=== PATIENT | female | born 1935 | race Two or more races ===

== ENCOUNTER 2016-09-11 05:51 | Inpatient (IN) | payer MEDICARE, BC ==
[~2016-09-11] VITALS: Ht 170.2 cm; Wt 70.3 kg
[~2016-09-11 05:51] MED LIST: ACET650S26 GT; BISA-79 RC; DOCU50LI GT; LACT-209 GT; MAGN400O6 GT; NA P133E RC; SENN8.6T6 GT; VITA42.5 TP
--- NOTE | 2016-09-11 05:51 | NUR ---
pt [id number] fr [facility] for report witnessed seizure by TRIAL MANAGER while in bed, lasting approximately 2mins, BG 106 in field. pt labile, nonverbal which is reported normal for pt. pt afebrile w/ resp even & unlabored, hypoxic on RA, placed on 2 l/min O2 via NC, NSR on continuous pulse-ox w/ cardiac monitoring & seizure precautions in place. Bed low to ground w/ siderails up & padded. Pending further neto mullins MD.
--- NOTE | 2016-09-11 06:05 | NUR ---
Labs drawn & sent.
--- NOTE | 2016-09-11 06:13 | NUR ---
Dr. De Paz at bedside for further eval, talking w/ pt son at bedside.
--- NOTE | 2016-09-11 06:14 | NUR ---
pt sent to CT via [facility].
[2016-09-11] MEDS ORDERED: IV NS 0.9% 2,000 ML ONE (06:24)
[2016-09-11] MEDS ORDERED: IV SET PRIMARY 1 EA INFUS.SET MC ONE ×2 (06:24→07:41)
[2016-09-11] MEDS ORDERED: SECONDARY IV SET 1 EA INFUS.SET MC ONE (06:24)
[2016-09-11] MEDS ORDERED: IV NS 0.9% 500 ML IV ONE (06:24)
[2016-09-11] MEDS ORDERED: IV NS 0.9% 1,000 ML BAG IV ONE ×2 (06:30→12:00)
[2016-09-11 06:33] LABS: CALCIUM, SERUM 9.1 mg/dL (8.5-10.1); CARBON DIOXIDE 23 mmol/L (21-32); CHLORIDE 101 mmol/L (98-107); GLUCOSE 139 mg/dL (74-106); POTASSIUM 3.7 mmol/L (3.5-5.1); SODIUM SERUM 139 mmol/L (136-145); UREA NITROGEN, BLOOD 17 mg/dL (7-18)
[2016-09-11 06:35] LABS: BASOPHILS % (AUTO) 0.2 % (0.0-2.0); EOSINOPHILS # (AUTO) 0.1 /CMM (0.0-0.7); EOSINOPHILS % (AUTO) 1.1 % (0.0-6.0); HEMATOCRIT 39 % (33-45); LYMPHOCYTES # (AUTO) 5.1 /CMM (0.8-4.8); LYMPHOCYTES % (AUTO) 40.1 % (20.0-44.0); MEAN CORPUSCULAR HEMOGLOBIN 29 PG (26.0-33.0); MEAN CORPUSCULAR HGB CONC 33 g/dl (31.0-36.0); MEAN CORPUSCULAR VOLUME 86 fL (82-100); MONOCYTES # (AUTO) 0.8 /CMM (0.1-1.30); MONOCYTES % (AUTO) 6.3 % (2.0-12.0); NEUTROPHILS # (AUTO) 6.6 /CMM (1.8-8.9); NEUTROPHILS % (AUTO) 52.3 % (43.0-81.0); PLATELET COUNT (AUTO) 463 /CMM (150-450); RED BLOOD CELL COUNT(AUTO) 4.55 MIL/uL (4.0-5.2); WHITE BLOOD COUNT (AUTO) 12.6 K/uL (4.3-11.0)
[2016-09-11 06:39] LABS: ALANINE AMINOTRANSFERASE 20 U/L (12-78); ALBUMIN 2.9 g/dL (3.4-5.0); ALKALINE PHOSPHATASE 101 U/L (46-116); ASPARTATE AMINOTRANSFERASE 18 U/L (15-37); BILIRUBIN,DIRECT 0.1 mg/dL (0.0-0.2); BILIRUBIN,TOTAL 0.3 mg/dL (0.2-1.0); TOTAL PROTEIN, SERUM 7.1 g/dL (6.4-8.2)
--- NOTE | 2016-09-11 06:39 | NUR ---
pt back fr ct w/ reps even & unlabored, on continuous O2, pulse-ox w/ cardiac monitoring. IV flds continue to be infusing.
[2016-09-11 06:42] LABS: INR 0.97 (0.87-1.13); PROTHROMBIN TIME 10.4 SECS (9.5-12.7); TROPONIN I < 0.017 ng/mL (0.00-0.056)
--- NOTE | 2016-09-11 06:58 | NUR ---
16FR FC initiated w/ 200ml clear yellow urine obtained & sent to lab. FC d/c. pt tolerated procedure well w/ nad noted.
--- NOTE | 2016-09-11 06:59 | NUR ---
Dr. De Paz updating pt son on pt status. pt becoming more responsive, able to speak one-word sentences, saying "no no no. ok ok ok ok." On continuous monitoring.
--- NOTE | 2016-09-11 07:08 | NUR ---
Report given to SHILPA Schaefer for DELTA.
[2016-09-11 07:26] LABS: APPEARANCE,URINE SL CLOUDY (CLEAR); BILIRUBIN,URINE NEGATIVE (NEGATIVE); BLOOD, URINE TRACE-INTA Ery/uL (NEGATIVE); COLOR,URINE YELLOW (YELLOW); KETONES,URINE NEGATIVE (NEGATIVE); LEUKOCYTE ESTERASE ,URINE 3+ (NEGATIVE); NITRITE, URINE POSITIVE (NEGATIVE); PH,URINE 6.5 (5.0-8.0); PROTEIN,URINE NEGATIVE (NEGATIVE); UGLUCOSE NEGATIVE (NEGATIVE)
[2016-09-11 07:40] LABS: BACTERIA,URINE 3+ /HPF (None Seen); SQUAMOUS EPITHELIAL CELL,UR Moderate /HPF (None Seen); WBC,URINE 51-80 /HPF (0-3)
[2016-09-11] MEDS ORDERED: CEFTRIAXONE 1GM BAG (ER ONLY) 50 ML IV ONE (07:41)
[2016-09-11] MEDS ORDERED: CRAN3875 GT (07:49)
[2016-09-11] MEDS ORDERED: LACT10SO GT (07:49)
[2016-09-11] MEDS ORDERED: CEFTRIAXONE 1GM BAG (ER ONLY) 1 GM/50 ML PIGGYBACK IV ONE (08:00)
[2016-09-11] MEDS ORDERED: AMIN30LI2 GT (08:36)
--- NOTE | 2016-09-11 09:04 | NUR ---
CALLED [facility] FIRST TIME AT 0826 SEE NOTES ON BED 6 CALLED [facility] AGAIN ITS ISELA
--- NOTE | 2016-09-11 09:08 | NUR ---
REPORT GIVEN TO NASIR MASSEY FOR DLETA
--- NOTE | 2016-09-11 10:45 | NUR ---
RN BRYON RECEIVED PATIENT FROM THE ER ON [facility]. 4 PERSON ASSIST TRANSFER TO THE BED. STABLE VITAL SINGS. ALERT AND AWAKE AT THIS TIME. COMBATIVE DURING CARE. FAMILY AT BEDSIDE. SKIN EVALUATED BY RN. TURNED AND REPOSITIONED FOR COMFORT AND WOUND PREVENTION. WILL CONTINUE TO MONITOR AND PROVIDE CARE.
[2016-09-11 10:57] VITALS: BP 125/69
--- NOTE | 2016-09-11 11:10 | NUR ---
BRYON/RN: RECEIVED REPORT FROM NASIR RN FOR DELTA. DR ISELA CAMPBELL FOR ADMITTING ORDERS. PT A&OX2, DROWSY, BREATHING EVEN AND UNLABORED. ABLE TO COMMUNICATE NEEDS. NO DISTRESS NOTED. WILL CONT TO MONITOR PT.
[2016-09-11 12:00] VITALS: BP 98/63
[2016-09-11] MEDS ORDERED: ACETAMINOPHEN 650 MG/20.3 ML UDC GT PRN (12:00)
[2016-09-11] MEDS ORDERED: MORPHINE SULFATE INJ 4 MG/ML DISP.SYRIN IV PRN (12:00)
[2016-09-11] MEDS ORDERED: BISACODYL (5 MG) 5 MG TABLET.DR GT PRN (12:00)
[2016-09-11] MEDS ORDERED: NA PHOS,M-B/NA PHOS,DI-BA 1 EA ENEMA RC PRN (12:00)
[2016-09-11] MEDS ORDERED: ACETAMINOPHEN 650 MG/20.3 ML UDC NG PRN (12:00)
[2016-09-11] MEDS ORDERED: MAGNESIUM HYDROXIDE 30 ML UDC GT PRN (12:00)
[2016-09-11] MEDS ORDERED: ONDANSETRON HCL/PF 4 MG/2 ML VIAL IVP PRN (12:00)
[2016-09-11] MEDS ORDERED: LORAZEPAM INJ 2 MG/ML VIAL IVP PRN (12:00)
[2016-09-11] MEDS ORDERED: IV SET PRIMARY PUMP SET 1 EA INFUS.SET MC ONE (12:15)
[2016-09-11] MEDS: PROSOURCE / PROSTAT (PYXIS) 30 ML UDC GT SCH (12:30)
[2016-09-11] MEDS ORDERED: IV NS 0.9% 1,000 ML BAG IV PRN (12:30)
[2016-09-11] MEDS: VITAMINS A AND D 56.7 GM TUBE TP SCH ×2 (13:00→16:11)
[2016-09-11] MEDS: LACTULOSE 10 G/15 ML UDC (PYXIS) GT SCH ×3 (13:30→21:00)
[2016-09-11] MEDS ORDERED: CEFTRIAXONE 1 G in IV D5W 50 ML IV SCH (14:00)
--- NOTE | 2016-09-11 15:00 | NUR ---
BRYON/RN: WOUND CARE RENDERED, BED BATH PROVIDED. PT WITH LARGE AMOUNT OF SOFT GREEN BM
[2016-09-11 16:00] VITALS: BP 122/65
[2016-09-11] MEDS: IV NS 0.9% 1,000 ML IV PRN (16:11)
--- NOTE | 2016-09-11 19:10 | NUR ---
BRYON/RN: US TECH AT BEDSIDE. PT REMAINS IN STABLE CONDITION, NO DISTRESS NOTED. CARE ENDORSED TO PM RN FOR DELTA.
[2016-09-11 20:00] VITALS: BP 121/67
--- NOTE | 2016-09-11 20:33 | NUR ---
received pt from day shift, alert, confused,follows simple commands at times, no seizures, SR, on 2L 02, sat well, lungs diminished, no edema, NPO, diaper on, v/s stable, no pain, pt turned and repositioned.
[2016-09-11] MEDS: SENNOSIDES 8.6 MG TABLET GT SCH (21:28)
[2016-09-12] VITALS: BP 113/61
[2016-09-12 04:00] VITALS: BP 122/64
--- NOTE | 2016-09-12 04:09 | NUR ---
pt is resting in the bed, no acute distress overnight, v/s stable, no pain, pt cleaned, changed and repositioned q2hrs.
[2016-09-12] MEDS: IV NS 0.9% 1,000 ML IV PRN ×2 (04:31→22:05)
--- NOTE | 2016-09-12 07:10 | NUR ---
RN INITIAL NOTE PATIENT RECEIVED IN BED. PT IS AWAKE, ALERT, ORIENTED TO PERSON. NO S/S OF PAIN OR DISCOMFORT. SINUS RHYTHM ON TELE MONITOR. RESPIRATIONS ARE EVEN AND UNLABORED. NO S/S OF RESPIRATORY DISTRESS OR SOB. SATING WELL ON ROOM AIR. REMOVES AND REFUSES NASAL CANULA. . G-TUBE CLAMPED. SKIN IS WARM AND DRY TO TOUCH. IV SITE FLUSHED, PATENT. SAFETY PRECAUTIONS IN PLACE, BED IN LOCKED, LOW POSITION WITH TWO SIDE RAILS UP. CALL LIGHT AND BELONGINGS WITHIN EASY REACH. WILL MONITOR CLOSELY.
[2016-09-12 08:00] VITALS: BP 131/79
[2016-09-12] MEDS ORDERED: Medication Not On Formulary EA (Cran/Vitc/Mannose/Inulin/Brom (Uti-Stat Liquid) 30 ML) GT SCH (09:00)
[2016-09-12] MEDS: CEFTRIAXONE 1 G in IV D5W 50 ML IV SCH (09:07)
[2016-09-12] MEDS ORDERED: SECONDARY IV SET 1 EA INFUS.SET MC ONE (09:27)
[2016-09-12 09:56] LABS: ALANINE AMINOTRANSFERASE 21 U/L (12-78); ALBUMIN 2.8 g/dL (3.4-5.0); ALKALINE PHOSPHATASE 94 U/L (46-116); ASPARTATE AMINOTRANSFERASE 19 U/L (15-37); BILIRUBIN,TOTAL 0.5 mg/dL (0.2-1.0); CALCIUM, SERUM 8.6 mg/dL (8.5-10.1); CARBON DIOXIDE 26 mmol/L (21-32); CHLORIDE 104 mmol/L (98-107); CREATININE 0.6 mg/dL (0.6-1.3); GLUCOSE 79 mg/dL (74-106); POTASSIUM 3.4 mmol/L (3.5-5.1); SODIUM SERUM 140 mmol/L (136-145); UREA NITROGEN, BLOOD 6 mg/dL (7-18)
[2016-09-12] MEDS: LACTULOSE 10 G/15 ML UDC (PYXIS) GT SCH ×4 (09:56→21:57)
[2016-09-12 09:57] LABS: BASOPHILS % (AUTO) 0.3 % (0.0-2.0); EOSINOPHILS # (AUTO) 0.2 /CMM (0.0-0.7); EOSINOPHILS % (AUTO) 2.2 % (0.0-6.0); HEMATOCRIT 38 % (33-45); HEMOGLOBIN 12.6 g/dL (11.5-14.8); LYMPHOCYTES # (AUTO) 2.5 /CMM (0.8-4.8); LYMPHOCYTES % (AUTO) 30.8 % (20.0-44.0); MEAN CORPUSCULAR HEMOGLOBIN 28 PG (26.0-33.0); MEAN CORPUSCULAR HGB CONC 33 g/dl (31.0-36.0); MEAN CORPUSCULAR VOLUME 86 fL (82-100); MONOCYTES # (AUTO) 0.5 /CMM (0.1-1.30); MONOCYTES % (AUTO) 5.9 % (2.0-12.0); NEUTROPHILS # (AUTO) 4.9 /CMM (1.8-8.9); NEUTROPHILS % (AUTO) 60.8 % (43.0-81.0); PLATELET COUNT (AUTO) 389 /CMM (150-450); RDW COEFFICIENT OF VARIATION 15.7 (11.5-15.0); RED BLOOD CELL COUNT(AUTO) 4.42 MIL/uL (4.0-5.2)
[2016-09-12] MEDS: PROSOURCE / PROSTAT (PYXIS) 30 ML UDC GT SCH (09:57)
[2016-09-12] MEDS: PANTOPRAZOLE 40 MG/PACK PACK GT SCH (09:57)
[2016-09-12] MEDS: DOCUSATE SODIUM LIQ 100 MG/10 ML UDC GT SCH (09:57)
[2016-09-12] MEDS: VITAMINS A AND D 56.7 GM TUBE TP SCH ×3 (09:57→17:47)
[2016-09-12 10:01] LABS: PROTHROMBIN TIME 10.7 SECS (9.5-12.7)
[2016-09-12 10:03] LABS: CREATINE KINASE MB 1.2 ng/mL (0-3.6)
--- NOTE | 2016-09-12 11:30 | NUR ---
RN NOTE CONTACTED BY NEUROSURGERY REGARDING SPINE FRACTURE. MRI ORDERED, QUESTIONNAIRE COMPLETED
[2016-09-12 12:00] VITALS: BP 128/76
--- NOTE | 2016-09-12 12:23 | NUR ---
TEXTED DR. MCGHEE FOR MRI APPROVAL.
[2016-09-12] MEDS ORDERED: POTASSIUM CHLORIDE 20 MEQ TAB.PRT.SR PO ONE (12:30)
--- NOTE | 2016-09-12 13:36 | NUR ---
PATIENT COMBATIVE,CONFUSED AND CLAUSTRO UNABLE TO DO MRI,NURSE SOON IS AWARE.
[2016-09-12 16:00] VITALS: BP 133/80
--- NOTE | 2016-09-12 19:15 | NUR ---
RN CLOSING NOTE ALL MD ORDERS CARRIED OUT, PT KEPT CLEAN AND DRY. SAFETY PRECAUTIONS IN PLACE AT ALL TIMES. WILL GIVE REPORT TO ONCOMING RN FOR DELTA
--- NOTE | 2016-09-12 19:20 | NUR ---
RN INITIAL NOTES RECEIVED PATIENT IN BED, AWAKE AND ALERT TO NAME. PATIENT DENIES ANY PAIN AND DISCOMFORT. NO ACUTE DISTRESS. ON 2LPM OF O2 VIA NC, RESPIRATION IS NOTED TO BE EVEN AND UNLABORED, NO SOB. GT CLAMPED AT THIS TIME, FLUSHED AND KEPT PATENT. REVIEWED DIETITIAN'S NOTES AND CLARIFIED WITH MORNING AM NURSE, WILL START TF ORDERED. R FOREARM G20, FLUSHED AND PATENT, NO SIGNS OF INFILTRATION, IVF ORDERED. PATIENT'S NEEDS ANTICIPATED AND MET. SAFETY AND COMFORT ENSURED. SEIZURE PRECAUTION OBSERVED, NO SIGNS OF SEIZURE NOTED, WILL MONITOR CLOSELY. Addendum: 09/12/16 at 2041 by PEPITO TY RN WILL COORDINATE WITH PHARMACY/ NURSING DIE HOLDER FOR THE GTF SUPPLY.
[2016-09-12 20:00] VITALS: BP 130/76
[2016-09-12] MEDS: SENNOSIDES 8.6 MG TABLET GT SCH (21:58)
[2016-09-12] MEDS: FIBERSOURCE HN 1,000 ML BOTTLE GT PRN (22:06)
--- NOTE | 2016-09-12 22:19 | NUR ---
RN NOTES GTF-FIBERSOURCE STARTED PER ORDER. GT PLACEMENT VERIFIED WITH AUSCULTATION. OBTAINED FIBERSOURCE FROM NURSING PROBATE PARALEGAL, UNABLE TO SCAN BARCODE, MANUAL BARCODE UTILIZED. WILL MONITOR FOR TOLERANCE OF GTF.
--- NOTE | 2016-09-13 02:41 | NUR ---
RN NOTES MONITORED PATIENT'S TOLERANCE WITH GTF. PATIENT WITH NO C/O OF NAUSEA/VOMITING, NO ABDOMINAL DISCOMFORT, NO GASTRIC RESIDUAL NOTED. TOLERATING GTF WELL.
[2016-09-13 04:00] VITALS: BP 107/59
[2016-09-13 06:40] LABS: BASOPHILS % (AUTO) 0.3 % (0.0-2.0); EOSINOPHILS # (AUTO) 0.2 /CMM (0.0-0.7); HEMATOCRIT 38 % (33-45); HEMOGLOBIN 12.5 g/dL (11.5-14.8); LYMPHOCYTES # (AUTO) 2.1 /CMM (0.8-4.8); LYMPHOCYTES % (AUTO) 26.8 % (20.0-44.0); MEAN CORPUSCULAR HEMOGLOBIN 29 PG (26.0-33.0); MEAN CORPUSCULAR HGB CONC 33 g/dl (31.0-36.0); MEAN CORPUSCULAR VOLUME 86 fL (82-100); MONOCYTES # (AUTO) 0.5 /CMM (0.1-1.30); MONOCYTES % (AUTO) 6.4 % (2.0-12.0); NEUTROPHILS # (AUTO) 5.2 /CMM (1.8-8.9); NEUTROPHILS % (AUTO) 64.5 % (43.0-81.0); PLATELET COUNT (AUTO) 391 /CMM (150-450); RDW COEFFICIENT OF VARIATION 15.4 (11.5-15.0); RED BLOOD CELL COUNT(AUTO) 4.38 MIL/uL (4.0-5.2)
--- NOTE | 2016-09-13 06:48 | NUR ---
RN CLOSING NOTES PATIENT WITH NO ACUTE CHANGE IN CONDITION OBSERVED OVERNIGHT. NO INTOLERANCE NOTED WITH GTF, INFUSING WELL. IVF INFUSING WELL ON PATIENT'S R FOREARM. NO SEIZURE ACTIVITY OBSERVED OVERNIGHT. PATIENT'S NEEDS ANTICIPATED AND MET. TURNED AND REPOSITIONED. KEPT CLEAN AND DRY. SAFETY AND COMFORT ENSURED. BED IN LOW AND LOCKED POSITION. CALL LIGHT IN REACH. WILL ENDORSE ACCORDINGLY FOR CONTINUITY OF CARE.
[2016-09-13 07:33] LABS: CALCIUM, SERUM 8.1 mg/dL (8.5-10.1); CARBON DIOXIDE 26 mmol/L (21-32); CHLORIDE 103 mmol/L (98-107); CREATININE 0.6 mg/dL (0.6-1.3); GLUCOSE 124 mg/dL (74-106); MAGNESIUM 1.8 mg/dL (1.8-2.4); PHOSPHORUS 2.7 mg/dL (2.5-4.9); POTASSIUM 3.5 mmol/L (3.5-5.1); SODIUM SERUM 136 mmol/L (136-145); UREA NITROGEN, BLOOD 10 mg/dL (7-18)
--- NOTE | 2016-09-13 07:39 | NUR ---
RN INITIAL NOTE REPORT RECEIVED FROM PEPITO PM SHIFT FOR DELTA. PT A/O X1 EPISODES OF CONFUSION. PT NC 2L .PT MS. FIBERSOURCE @ 70 ML/HR PLACEMENT CK NO RESIDUAL. IV RFA #20 G NS @75ML/HR. ALL SAFETY MEASURES IN PLACE.WILL CONTINUE TO MONITOR.
[2016-09-13 08:00] VITALS: BP 122/58
[2016-09-13] MEDS: CEFTRIAXONE 1 G in IV D5W 50 ML IV SCH (08:07)
[2016-09-13] MEDS: VITAMINS A AND D 56.7 GM TUBE TP SCH ×3 (08:08→17:36)
[2016-09-13] MEDS: DOCUSATE SODIUM LIQ 100 MG/10 ML UDC GT SCH (08:08)
[2016-09-13] MEDS: PANTOPRAZOLE 40 MG/PACK PACK GT SCH (08:08)
[2016-09-13] MEDS: LACTULOSE 10 G/15 ML UDC (PYXIS) GT SCH ×4 (08:13→21:14)
[2016-09-13] MEDS: PROSOURCE / PROSTAT (PYXIS) 30 ML UDC GT SCH (08:13)
[2016-09-13] MEDS: FIBERSOURCE HN 1,000 ML BOTTLE GT PRN (11:48)
[2016-09-13] MEDS: MUPIROCIN OINT 2% 22 GM TUBE SCH ×2 (11:49→21:14)
[2016-09-13] MEDS: IV NS 0.9% 1,000 ML IV PRN (11:49)
[2016-09-13 16:00] VITALS: BP_SYST 106; BP_DIAS 65; BP_DIAS 67
--- NOTE | 2016-09-13 19:00 | NUR ---
RN CLOSING NOTE REPORT GIVEN TO PEPITO PM SHIFT FOR DELTA. PT A/O X1 EPISODES OF CONFUSION. PT NC 2L .PT MS. FIBERSOURCE @ 70 ML/HR TOLERATED FEEDING THROUGH OUT SHIFT. IV RFA #20 G NS @75ML/HR. ALL SAFETY MEASURES IN PLACE.
--- NOTE | 2016-09-13 19:15 | NUR ---
RN INITIAL NOTES RECEIVED PATIENT IN BED, AWAKE AND ALERT TO NAME. PATIENT DENIES ANY PAIN AND DISCOMFORT, NO ACUTE SIGNS OF PAIN. NO ACUTE DISTRESS. ON 2LPM OF O2 VIA NC, RESPIRATION IS NOTED TO BE EVEN AND UNLABORED, NO SOB. R FOREARM G20, FLUSHED AND PATENT, NO SIGNS OF INFILTRATION, IVF ORDERED. GTF INFUSING ORDERED, NO GASTRIC RESIDUAL NOTED, TOLERATING WELL. PATIENT'S NEEDS ANTICIPATED AND MET. SAFETY AND COMFORT ENSURED. SEIZURE PRECAUTION OBSERVED, NO SIGNS OF SEIZURE NOTED, WILL MONITOR CLOSELY.
[2016-09-13 20:00] VITALS: BP 111/70
--- NOTE | 2016-09-13 20:30 | NUR ---
RN NOTES - RE POC DISCUSSED WITH DR. ROMO, NEUROSURGEON RECEIVED CALL FROM DR. EYAL ROMO NEUROSURGEON. UPDATED AND DISCUSSED PLAN OF CARE WITH MD REGARDING NOTED T12 FRACTURE. DR. ROMO WOULD LIKE TO REATTEMPT OBTAINING MRI SPINE FOR THE PATIENT FOR FURTHER EVALUATION. ORDER NOTED AND CARRIED OUT. CALLED AND SPOKE WITH PATIENT'S SON, MAI, UPDATED WITH THE PLAN OF CARE DISCUSSED WITH DR. ROMO. PATIENT'S SON VERBALIZED UNDERSTANDING AND STATED THAT HE WOULD LIKE TO BE PRESENT DURING THE MRI TO HELP PROVIDE REASSURANCE FOR THE PATIENT TO OBTAIN COMPLIANCE WITH THE PROCEDURE. PER PATIENT'S SON, HE WILL BE ABLE TO COME TO [facility] ON FRIDAY. CALLED AND SPOKE WITH MARKO, FROM IMAGING, DISCUSSED THE ORDERED MRI OVER THE WEEKEND. PER MARKO HE WILL COORDINATE WITH HIS SENIOR ADVOCATE FOR THE SCHEDULING AND WILL GIVE A CALL BACK. CN MADE AWARE.
[2016-09-13] MEDS: SENNOSIDES 8.6 MG TABLET GT SCH (21:14)
[2016-09-14] MEDS: IV NS 0.9% 1,000 ML IV PRN ×2 (00:27→17:55)
[2016-09-14 04:00] VITALS: BP 109/66
[2016-09-14] MEDS: FIBERSOURCE HN 1,000 ML BOTTLE GT PRN ×2 (05:38→20:06)
[2016-09-14 06:28] LABS: BASOPHILS % (AUTO) 0.1 % (0.0-2.0); EOSINOPHILS # (AUTO) 0.3 /CMM (0.0-0.7); EOSINOPHILS % (AUTO) 3.4 % (0.0-6.0); HEMATOCRIT 36 % (33-45); HEMOGLOBIN 12.1 g/dL (11.5-14.8); LYMPHOCYTES # (AUTO) 1.5 /CMM (0.8-4.8); LYMPHOCYTES % (AUTO) 17.7 % (20.0-44.0); MEAN CORPUSCULAR HEMOGLOBIN 29 PG (26.0-33.0); MEAN CORPUSCULAR HGB CONC 33 g/dl (31.0-36.0); MEAN CORPUSCULAR VOLUME 86 fL (82-100); MONOCYTES # (AUTO) 0.5 /CMM (0.1-1.30); MONOCYTES % (AUTO) 6.3 % (2.0-12.0); NEUTROPHILS # (AUTO) 6.3 /CMM (1.8-8.9); NEUTROPHILS % (AUTO) 72.5 % (43.0-81.0); PLATELET COUNT (AUTO) 394 /CMM (150-450); RDW COEFFICIENT OF VARIATION 15.6 (11.5-15.0); RED BLOOD CELL COUNT(AUTO) 4.22 MIL/uL (4.0-5.2); WHITE BLOOD COUNT (AUTO) 8.7 K/uL (4.3-11.0)
--- NOTE | 2016-09-14 06:34 | NUR ---
RN CLOSING NOTES PATIENT WITH NO ACUTE CHANGE IN CONDITION OBSERVED OVERNIGHT. GTF TOLERATED WELL, NO GASTRIC RESIDUAL. IVF INFUSING WELL ON PATIENT'S R FOREARM. NO SEIZURE ACTIVITY OBSERVED OVERNIGHT. PATIENT'S NEEDS ANTICIPATED AND MET. TURNED AND REPOSITIONED. KEPT CLEAN AND DRY. SAFETY AND COMFORT ENSURED. BED IN LOW AND LOCKED POSITION. CALL LIGHT IN REACH. WILL ENDORSE ACCORDINGLY FOR CONTINUITY OF CARE.
[2016-09-14 06:59] LABS: CALCIUM, SERUM 7.7 mg/dL (8.5-10.1); CARBON DIOXIDE 27 mmol/L (21-32); CHLORIDE 107 mmol/L (98-107); CREATININE 0.6 mg/dL (0.6-1.3); GLUCOSE 118 mg/dL (74-106); MAGNESIUM 1.7 mg/dL (1.8-2.4); PHOSPHORUS 2.9 mg/dL (2.5-4.9); POTASSIUM 4.2 mmol/L (3.5-5.1); SODIUM SERUM 142 mmol/L (136-145); UREA NITROGEN, BLOOD 12 mg/dL (7-18)
--- NOTE | 2016-09-14 07:12 | NUR ---
RN INITIAL NOTES: REC'D PT AWAKE ON BED, A/O X1, DENIES ANY PAIN/ DISCOMFORT. ON O2 AT 2LPM/NC, NO SOB. PT HAS RFA G20 PATENT/ INTACT W/ NO S/SX OF INFECTION/ INFILTRATION W/ NS X 75 CC/HR INFUSING WELL. PT HAS G-TUBE ON CONTINUOUS TF FIBERSOURCE X 70 CC/HR, NO RESIDUAL NOTED UPON CHECKING. PROVIDED COMFORT & SAFETY MEASURES. BED KEPT LOW & IN LOCKED POS. CALL LIGHT PLACED W/IN REACH. ISOLATION PREC OBSERVED. WILL CONTINUE TO MONITOR.
[2016-09-14 08:00] VITALS: BP 123/66
[2016-09-14] MEDS: PANTOPRAZOLE 40 MG/PACK PACK GT SCH (08:35)
[2016-09-14] MEDS: PROSOURCE / PROSTAT (PYXIS) 30 ML UDC GT SCH (08:35)
[2016-09-14] MEDS: DOCUSATE SODIUM LIQ 100 MG/10 ML UDC GT SCH (08:35)
[2016-09-14] MEDS: CEFTRIAXONE 1 G in IV D5W 50 ML IV SCH (08:35)
[2016-09-14] MEDS: VITAMINS A AND D 56.7 GM TUBE TP SCH ×3 (08:36→17:56)
[2016-09-14] MEDS: MUPIROCIN OINT 2% 22 GM TUBE SCH ×2 (08:36→22:04)
[2016-09-14] MEDS: LACTULOSE 10 G/15 ML UDC (PYXIS) GT SCH ×4 (08:38→22:03)
[2016-09-14] MEDS ORDERED: SECONDARY IV SET 1 EA INFUS.SET MC ONE (11:43)
[2016-09-14] MEDS: Magnesium 1GM/D5W 100ML PREMIX 100 ML IV SCH ×2 (11:51→12:52)
[2016-09-14] MEDS ORDERED: Magnesium 1GM/D5W 100ML PREMIX 100 ML IV SCH (12:00)
--- NOTE | 2016-09-14 15:40 | NUR ---
RN NOTES: REC'D CALL FROM PT'S SON MAI ([phone]), REQUESTED IF MRI CAN BE DONE FRIDAY PM OR ON FRIDAY. LEFT VM TO LINE MAINTAINER SECTION (DESIRAE, [phone]), AWAITING FOR CB.
[2016-09-14 16:00] VITALS: BP 119/69
--- NOTE | 2016-09-14 18:00 | NUR ---
RN NOTES: RT FELICIA TRIED COLLECTING SPUTUM BUT PT STRONGLY REFUSED.
--- NOTE | 2016-09-14 18:58 | NUR ---
RN CLOSING NOTES: NO ACUTE CHANGES W/IN SHIFT. PT REFUSING NASAL CANULA, NO SOB NOTED. RFA G20 KEPT PATENT/ INTACT W/ NO S/SX OF INFECTION/ INFILTRATION. PER DR. ISELA TORRES TO DC IVF AND MADE HER AWARE THAT PT'S SON MAI WANTED TO DO MRI ON FRIDAY OR FRIDAY. G-TUBE KEPT PATENT & INTACT ON CONTINUOUS TF FIBERSOURCE X 70 CC/HR, NO RESIDUAL NOTED W/IN SHIFT. KEPT WELL RESTED. BED KEPT LOW & IN LOCKED POS. CALL LIGHT PLACED W/IN REACH. ISOLATION PREC OBSERVED. WILL ENDORSE TO PM RN FOR DELTA.
--- NOTE | 2016-09-14 19:30 | NUR ---
MS RN INITIAL NOTE RECEIVED PT IN BED RESTING WITH DAUGHTER AT BEDSIDE. ON ROOM AIR SATURATION 93%. PT REFUSING TO LEAVE NASAL CANNULA ON. IV SITE CLEAN, DRY AND INTACT. GTUBE CLEAN AND PATENT WITHOUT RESIDUAL NOTED AT THIS TIME. FEEDING WELL TOLERATED AND FLUSHING WELL. ON ISOLATION PRECAUTIONS. WILL CONTINUE TO MONITOR.
[2016-09-14 20:00] VITALS: BP 111/62
[2016-09-14] MEDS: SENNOSIDES 8.6 MG TABLET GT SCH (22:03)
[2016-09-15 04:00] VITALS: BP_SYST 101; BP_DIAS 62; BP_DIAS 64
--- NOTE | 2016-09-15 06:54 | NUR ---
MS RN CLOSING NOTE REMAINED STABLE DURING SHIFT WITH EPISODES OF CONFUSION AND COMBATIVE BEHAVIOR WITH CARE. PT REFUSED OXYGEN VIA NC AND SATURATING AT 95% RA. ATTEMPTED TO COLLECT SPUTUM THROUGH SUCTION AND UNABLE TO COLLECT DUE TO PT'S STRONG REFUSAL. ASIF FROM MRI CALLED AND INFORMED THAT TECH WOULD BE AVAILABLE Friday09/15/16 TO PERFORM MRI FOR PT WITH FAMILY PRESENT. ISOLATION PRECAUTIONS OBSERVED. IV SITE INTACT AND PATENT. KEPT CLEAN AND DRY. ALL NEEDS ATTENDED TO PROMPTLY. WILL ENDORSE TO NEXT SHIFT FOR DELTA.
[2016-09-15 07:28] LABS: CALCIUM, SERUM 8.4 mg/dL (8.5-10.1); CARBON DIOXIDE 28 mmol/L (21-32); CHLORIDE 105 mmol/L (98-107); CREATININE 0.6 mg/dL (0.6-1.3); GLUCOSE 101 mg/dL (74-106); POTASSIUM 4.3 mmol/L (3.5-5.1); SODIUM SERUM 140 mmol/L (136-145); UREA NITROGEN, BLOOD 15 mg/dL (7-18)
[2016-09-15 08:00] VITALS: BP 111/67
[2016-09-15] MEDS ORDERED: IV SET PRIMARY PUMP SET 1 EA INFUS.SET MC ONE (09:01)
[2016-09-15] MEDS: PROSOURCE / PROSTAT (PYXIS) 30 ML UDC GT SCH (09:19)
[2016-09-15] MEDS: PANTOPRAZOLE 40 MG/PACK PACK GT SCH (09:19)
[2016-09-15] MEDS: CEFTRIAXONE 1 G in IV D5W 50 ML IV SCH (09:19)
[2016-09-15] MEDS: LACTULOSE 10 G/15 ML UDC (PYXIS) GT SCH ×4 (09:19→21:19)
[2016-09-15] MEDS: DOCUSATE SODIUM LIQ 100 MG/10 ML UDC GT SCH (09:19)
[2016-09-15] MEDS: MUPIROCIN OINT 2% 22 GM TUBE SCH ×2 (09:21→21:20)
[2016-09-15] MEDS: VITAMINS A AND D 56.7 GM TUBE TP SCH ×3 (09:21→17:10)
[2016-09-15] MEDS: FIBERSOURCE HN 1,000 ML BOTTLE GT PRN (09:35)
[2016-09-15] MEDS: IV NS 0.9% 250 ML IV PRN (09:35)
[2016-09-15] MEDS: LORAZEPAM INJ 2 MG/ML VIAL IVP PRN (12:44)
[2016-09-15 16:00] VITALS: BP 90/63
--- NOTE | 2016-09-15 19:30 | NUR ---
MS RN INITIAL NOTE RECEIVED PT RESTING IN BED. A/O X1 WITH EPISODES OF CONFUSION. ON ROOM AIR AND SATURATING WELL. IV SITE INTACT, FLUSHING WELL AND PATENT. GTUBE CLEAN, PATENT AND INTACT WITHOUT RESIDUAL NOTED AT THIS TIME. GTUBE FEEDING WELL TOLERATED. BED IN LOWEST POSITION AND LOCKED IN PLACE. ISOLATION PRECAUTIONS OBSERVED. CALL LIGHT WITHIN EASY REACH. WILL CONTINUE TO MONITOR.
[2016-09-15] MEDS: SENNOSIDES 8.6 MG TABLET GT SCH (21:19)
[2016-09-16] MEDS: FIBERSOURCE HN 1,000 ML BOTTLE GT PRN (02:58)
[2016-09-16 04:00] VITALS: BP 113/70
--- NOTE | 2016-09-16 06:39 | NUR ---
MS RN CLOSING NOTE PT IN NO ACUTE DISTRESS NOTED. NOTED WITH EPISODES OF COMBATIVE BEHAVIOR DURING CARE. KEPT CLEAN AND DRY. IV SITE INTACT AND PATENT. GTUBE CLEAN AND DRY WITHOUT RESIDUALS NOTED. WILL ENDORSE TO NEXT SHIFT FOR DELTA.
--- NOTE | 2016-09-16 07:47 | NUR ---
MS RN INITIAL NOTE RECEIVED PT RESTING IN BED. A/O X1-2 WITH EPISODES OF CONFUSION. NO COMPLAINTS OF PAIN OR SOB AT THIS TIME ON ROOM AIR AND SATURATING WELL 96 %. IV SITE INTACT, FLUSHING WELL AND PATENT- NS GOING AT5CC/HR PT HAS G-TUBE CLEAN, PATENT AND INTACT NO RESIDUAL NOTED AT THIS TIME . G-TUBE FEEDING WELL TOLERATED. BED IN LOWEST POSITION AND LOCKED IN PLACE. ISOLATION PRECAUTIONS OBSERVED. CALL LIGHT WITHIN EASY REACH. WILL CONTINUE TO MONITOR.
[2016-09-16 08:00] VITALS: BP_SYST 102; BP_DIAS 56; BP_DIAS 62
--- NOTE | 2016-09-16 08:02 | NUR ---
RN NOTE RN CONTACTED THE PATIENT SON PER HIS REQUEST AND UPDATED HIM ABOUT THE SCHEDULED MRI FOR 10 AM. RN WILL CONTINUE TO FOLLOW
[2016-09-16] MEDS: LACTULOSE 10 G/15 ML UDC (PYXIS) GT SCH ×4 (08:21→21:00)
[2016-09-16] MEDS: DOCUSATE SODIUM LIQ 100 MG/10 ML UDC GT SCH (08:21)
[2016-09-16] MEDS: MUPIROCIN OINT 2% 22 GM TUBE SCH ×2 (08:21→21:28)
[2016-09-16] MEDS: PANTOPRAZOLE 40 MG/PACK PACK GT SCH (08:21)
[2016-09-16] MEDS: VITAMINS A AND D 56.7 GM TUBE TP SCH ×3 (08:21→16:06)
[2016-09-16] MEDS: CEFTRIAXONE 1 G in IV D5W 50 ML IV SCH (08:22)
[2016-09-16] MEDS: PROSOURCE / PROSTAT (PYXIS) 30 ML UDC GT SCH (08:22)
[2016-09-16] MEDS ORDERED: SECONDARY IV SET 1 EA INFUS.SET MC ONE (08:25)
[2016-09-16] MEDS: LORAZEPAM INJ 2 MG/ML VIAL IVP PRN ×2 (10:22→15:15)
--- NOTE | 2016-09-16 13:50 | NUR ---
RN NOTE RN SPOKE WITH PHYSICAL THERAPIST IN REGARDS TO ORDERING A BRACE SO THAT THE PATIENT CAN BEGIN PT ORDERED . RN CONTACTED [facility] AT [phone]. AND PLACED A ORDER FOR A TSLO BRACE FOR THE PATIENT LUMBAR AND THORACIC FX. FACESHEET AND ORDER FAXED [phone] [facility]
--- NOTE | 2016-09-16 13:53 | NUR ---
RN NOTE BED BATH COMPLETED AND ALL DRESSINGS ATTENDED TO , NO NEW ISSUES NOTED RN WILL CONTINUE TO FOLLOW AND MONITOR
[2016-09-16 16:00] VITALS: BP 106/62
--- NOTE | 2016-09-16 16:06 | NUR ---
RN NOTE LACTULOSE HELD DUE TO PATIENT HAVING MULTIPLE LOOSE STOOLS THROUGH OUT THE DAY- LARGE
--- NOTE | 2016-09-16 17:28 | NUR ---
RN NOTE PATIENT FITTED FOR BACK BRACE . BRACE LOCATED UNDER PATIENT SIDE TABLE. PER CITIZEN OF [employer] [facility] BRACE SHOULD ONLY BE WORN WHEN PATIENT IS UP MOVING AROUND NOT IN BED.DAY SHIFT WILL ENDORSE TO THE PM NURSE
--- NOTE | 2016-09-16 18:02 | NUR ---
MS RN CLOSING NOTE NO ACUTE DISTRESS NOTED. PT HAS NOTED EPISODES OF COMBATIVE BEHAVIOR DURING CARE ATIVAN GIVEN PT TOLERATED WELL. PT KEPT CLEAN AND DRY. IV SITE CHANGED 22 G R HAND - CLEAN DRY INTACT AND PATENT. PTT REFUSE FOR RN TO REMOVE PREVIOUS IV G-TUBE CLEAN AND DRY WITHOUT RESIDUALS NOTED. WILL ENDORSE TO NEXT SHIFT FOR DELTA AND REMOVAL OF OLD IV.
--- NOTE | 2016-09-16 19:48 | NUR ---
MS RN NOTE PT IN BED AWAKE, A/O X 1 CONFUSED. NO SOB, NO DISTRESS OR DISCOMFORT NOTED. NO S/S OF PAIN NOTED. GTF FIBERSOURCE INFUSING AT 70 ML/HR, 0 ML RESIDUAL NOTED. KEPT HER HOB ELEVATED. RT HAND WITH HL #22 G INTACT AND PATENT. SIDE RAILS UP X 2 AND CALL LIGHT WITHIN REACH. VSS. CONTINUE TO MONITOR HER.
[2016-09-16 20:00] VITALS: BP 110/68
[2016-09-16] MEDS: SENNOSIDES 8.6 MG TABLET GT SCH (21:27)
[2016-09-16] MEDS: IV NS 0.9% 250 ML IV PRN (21:42)
[2016-09-17 04:00] VITALS: BP 90/59
--- NOTE | 2016-09-17 06:35 | NUR ---
MS RN NOTE PT IN BED ASLEEP, AROUSABLE. NO DISTRESS OR DISCOMFORT NOTED. DENIES PAIN. H/L INTACT AND PATENT. PT VOIDED X 3 AND BM X 2. SIDE RAILS UP X 2 AND CALL LIGHT WITHIN REACH. WILL ENDORSE TO DAY SHIFT NURSE FOR CONTINUE TO CARE.
--- NOTE | 2016-09-17 07:10 | NUR ---
RN INITIAL NOTES: REC'D PT AWAKE ON BED, A/O X1, NOT IN ANY DISTRESS. ON ROOM AIR, NO SOB NOTED. PT HAS R HAND G22 FLUSHED, PATENT/ INTACT W/ NO S/SX OF INFECTION/ INFILTRATION. PT HAS G-TUBE, ON CONTINUOUS TF FIBERSOURCE X 70 CC/HR, NO RESIDUAL NOTED UPON CHECKING. PROVIDED COMFORT & SAFETY MEASURES. BED KEPT LOW & IN LOCKED POS. CALL LIGHT PLACED W/IN REACH. ISOLATION PREC OBSERVED. PT FOR BONE SCAN OF WHOLE BODY. WILL CONTINUE TO MONITOR.
[2016-09-17 08:00] VITALS: BP 92/57
[2016-09-17] MEDS: CEFTRIAXONE 1 G in IV D5W 50 ML IV SCH (08:03)
[2016-09-17] MEDS: PANTOPRAZOLE 40 MG/PACK PACK GT SCH (08:04)
[2016-09-17] MEDS: LACTULOSE 10 G/15 ML UDC (PYXIS) GT SCH ×4 (08:04→21:43)
[2016-09-17] MEDS: PROSOURCE / PROSTAT (PYXIS) 30 ML UDC GT SCH (08:04)
[2016-09-17] MEDS: DOCUSATE SODIUM LIQ 100 MG/10 ML UDC GT SCH (08:04)
[2016-09-17] MEDS: VITAMINS A AND D 56.7 GM TUBE TP SCH ×3 (08:05→16:03)
[2016-09-17] MEDS: MUPIROCIN OINT 2% 22 GM TUBE SCH ×2 (08:05→21:43)
[2016-09-17] MEDS: FIBERSOURCE HN 1,000 ML BOTTLE GT PRN (09:35)
--- NOTE | 2016-09-17 14:16 | NUR ---
RN NOTES: PT SEEN & EXAMINED BY KEVIN WERNER. UPDATED HER PT'S PT EVAL - TOTAL ASSIST WHILE ON TLSO BRACE. BONE SCAN SCHEDULED AT 4PM.
[2016-09-17 16:00] VITALS: BP 109/59
[2016-09-17] MEDS: LORAZEPAM INJ 2 MG/ML VIAL IVP PRN (16:18)
--- NOTE | 2016-09-17 16:30 | NUR ---
RN NOTES: PT PICKED UP BY JANNET MOLINA FOR BONE SCAN OF WHOLE BODY.
--- NOTE | 2016-09-17 17:50 | NUR ---
RN NOTES: PT CAME BACK, S/P BONE SCAN WHOLE BODY, TOLERATED WELL.
--- NOTE | 2016-09-17 18:47 | NUR ---
RN CLOSING NOTES: NO ACUTE CHANGES NOTED W/IN SHIFT. TOLERATED ON ROOM AIR, NO SOB NOTED. R HAND G22 KEPT PATENT/ INTACT W/ NO S/SX OF INFECTION/ INFILTRATION. G-TUBE KEPT PATENT & INTACT, ON CONTINUOUS TF FIBERSOURCE X 70 CC/HR, NO RESIDUAL W/IN SHIFT. KEPT WELL RESTED. BED KEPT LOW & IN LOCKED POS. CALL LIGHT PLACED W/IN REACH. ISOLATION PREC OBSERVED. BONE SCAN OF WHOLE BODY DONE. WILL ENDORSE TO PM RN FOR DELTA.
--- NOTE | 2016-09-17 19:15 | NUR ---
RN INITIAL NOTES RECEIVED PATIENT IN BED, SLEEPING COMFORTABLY, EASILY AROUSABLE WITH VERBAL AND TACTILE STIMULI. PATIENT NOT IN ANY ACUTE CARDIAC/RESPIRATORY DISTRESS. ON ROOM AIR, NO SOB. WITH GT, INTACT, FLUSHED, GTF INFUSING WELL, NO GASTRIC RESIDUAL NOTED. R HAND G22, INTACT AND PATENT, NO SIGNS OF INFILTRATION. PATIENT'S NEEDS ANTICIPATED AND MET. SAFETY AND COMFORT ENSURED. HOB ELEVATED. BED IN LOW AND LOCKED POSITION. CALL LIGHT IN REACH. WILL MONITOR.
[2016-09-17 20:00] VITALS: BP 107/64
[2016-09-17] MEDS: SENNOSIDES 8.6 MG TABLET GT SCH (21:43)
[2016-09-18 04:00] VITALS: BP 104/61
[2016-09-18] MEDS: FIBERSOURCE HN 1,000 ML BOTTLE GT PRN (05:53)
--- NOTE | 2016-09-18 06:32 | NUR ---
RN CLOSING NOTES PATIENT WITH NO ACUTE CHANGE IN CONDITION OBSERVED OVERNIGHT. PATIENT STABLE, NO DISTRESS. NO C/O PAIN AND DISCOMFORT. ABLE TO SLEEP COMFORTABLY OVERNIGHT. GTF INFUSING WELL, NO RESIDUAL, ASPIRATION PRECAUTION OBSERVED. PATIENT'S NEEDS ANTICIPATED AND MET. SAFETY AND COMFORT ENSURED. BED IN LOW AND LOCKED POSITION. CALL LIGHT IN REACH. WILL ENDORSE ACCORDINGLY FOR CONTINUITY OF CARE.
[2016-09-18 06:54] LABS: BASOPHILS % (AUTO) 0.3 % (0.0-2.0); EOSINOPHILS # (AUTO) 0.3 /CMM (0.0-0.7); EOSINOPHILS % (AUTO) 3.3 % (0.0-6.0); HEMATOCRIT 37 % (33-45); HEMOGLOBIN 12.1 g/dL (11.5-14.8); LYMPHOCYTES # (AUTO) 2.5 /CMM (0.8-4.8); LYMPHOCYTES % (AUTO) 30.8 % (20.0-44.0); MEAN CORPUSCULAR HEMOGLOBIN 28 PG (26.0-33.0); MEAN CORPUSCULAR HGB CONC 33 g/dl (31.0-36.0); MEAN CORPUSCULAR VOLUME 86 fL (82-100); MONOCYTES # (AUTO) 0.5 /CMM (0.1-1.30); MONOCYTES % (AUTO) 6.3 % (2.0-12.0); NEUTROPHILS # (AUTO) 4.9 /CMM (1.8-8.9); NEUTROPHILS % (AUTO) 59.3 % (43.0-81.0); PLATELET COUNT (AUTO) 408 /CMM (150-450); RDW COEFFICIENT OF VARIATION 15.4 (11.5-15.0); RED BLOOD CELL COUNT(AUTO) 4.32 MIL/uL (4.0-5.2); WHITE BLOOD COUNT (AUTO) 8.2 K/uL (4.3-11.0)
--- NOTE | 2016-09-18 07:10 | NUR ---
RN INITIAL NOTES: REC'D PT ASLEEP ON BED, A/O X1, NOT IN ANY DISTRESS. ON ROOM AIR, NO SOB NOTED. PT HAS R HAND G22 FLUSHED, PATENT/ INTACT W/ NO S/SX OF INFECTION/ INFILTRATION. PT HAS G-TUBE, ON CONTINUOUS TF FIBERSOURCE X 70 CC/HR, NO RESIDUAL NOTED UPON CHECKING. PROVIDED COMFORT & SAFETY MEASURES. BED KEPT LOW & IN LOCKED POS. CALL LIGHT PLACED W/IN REACH. ISOLATION PREC OBSERVED. WILL CONTINUE TO MONITOR.
[2016-09-18 07:13] LABS: CALCIUM, SERUM 8.8 mg/dL (8.5-10.1); CARBON DIOXIDE 30 mmol/L (21-32); CHLORIDE 104 mmol/L (98-107); CREATININE 0.7 mg/dL (0.6-1.3); GLUCOSE 103 mg/dL (74-106); POTASSIUM 4.5 mmol/L (3.5-5.1); SODIUM SERUM 140 mmol/L (136-145); UREA NITROGEN, BLOOD 23 mg/dL (7-18)
[2016-09-18 08:00] VITALS: BP 104/59
[2016-09-18] MEDS: CEFTRIAXONE 1 G in IV D5W 50 ML IV SCH (08:01)
[2016-09-18] MEDS: DOCUSATE SODIUM LIQ 100 MG/10 ML UDC GT SCH (08:01)
[2016-09-18] MEDS: PANTOPRAZOLE 40 MG/PACK PACK GT SCH (08:01)
[2016-09-18] MEDS: PROSOURCE / PROSTAT (PYXIS) 30 ML UDC GT SCH (08:01)
[2016-09-18] MEDS: LACTULOSE 10 G/15 ML UDC (PYXIS) GT SCH ×3 (08:01→16:25)
[2016-09-18] MEDS: VITAMINS A AND D 56.7 GM TUBE TP SCH ×3 (08:03→16:25)
[2016-09-18] MEDS: MUPIROCIN OINT 2% 22 GM TUBE SCH (08:03)
[2016-09-18] MEDS ORDERED: CEPH-570 PO (12:15)
[2016-09-18] MEDS ORDERED: LORA1TAB82 IV (12:20)
[2016-09-18 16:00] VITALS: BP_SYST 106; BP_SYST 127; BP_DIAS 47; BP_DIAS 61
--- NOTE | 2016-09-18 17:30 | NUR ---
STUDY ASSISTANT NOTES: [facility] DC INSTRUCTIONS AND DOCUMENTS GIVEN TO [facility] EMT. IV LINE ACCESS REMOVED, PRESSURE DRESSING APPLIED, NO S/SX OF INFECTION. ID BAND REMOVED. TLSO BRACE & HAIRBRUSH SENT W/ PT. GT IN PLACED, FLUSHED, PATENT & INTACT W/ CLEAN & DRY DRESSING. REPORT GIVEN TO SHILPA GAARWAL AT [facility]. VERA ONEILL AWARE OF DC. PT LEFT FACILITY IN STABLE CONDITION VIA GURNEY. NO CONCERNS EXPRESSED AT THIS TIME.
== END 2016-09-18 18:49 | DRG 871 ==
LOC: ER 05:53 → TELE-TD 10:10 → MEDSG1 09-12 11:07
PROVIDERS: ADMIT Internal Medicine; ATTEND Internal Medicine
DX: A41.9 Sepsis, unspecified organism (principal); G93.41 Metabolic encephalopathy; R65.21 Severe sepsis with septic shock; R53.2 Functional quadriplegia; E44.0 Moderate protein-calorie malnutrition; N39.0 Urinary tract infection, site not specified; E87.2 Acidosis; G91.2 (Idiopathic) normal pressure hydrocephalus; M84.48XA Pathological fracture, other site, initial encounter for fracture; D63.8 Anemia in other chronic diseases classified elsewhere; F03.90 Unspecified dementia, unspecified severity, without behavioral disturbance, psychotic disturbance, mood disturbance, and anxiety; R62.7 Adult failure to thrive; K57.90 Diverticulosis of intestine, part unspecified, without perforation or abscess without bleeding; G40.909 Epilepsy, unspecified, not intractable, without status epilepticus; Z88.5 Allergy status to narcotic agent; Z88.2 Allergy status to sulfonamides; Z93.1 Gastrostomy status; R13.10 Dysphagia, unspecified; K80.20 Calculus of gallbladder without cholecystitis without obstruction; K56.41 Fecal impaction; B96.89 Other specified bacterial agents as the cause of diseases classified elsewhere; I25.10 Atherosclerotic heart disease of native coronary artery without angina pectoris; M40.209 Unspecified kyphosis, site unspecified
CPT/HCPCS: 36415; 70450-TC; 71010-TC; 72128-TC; 72146-TC; 72148-TC; 76705-TC; 78306-TC; 80048-TC; 80053-TC; 80076-TC; 81000-TC; 82553-TC; 82962-TC; 83605-TC; 83735-TC; 84100-TC; 84484-TC; 85025-TC; 85610-TC; 85730-TC; 87040-TC; 87081-TC; 87086-TC; 87186-TC; 93307-TC; 94799-TC; 97001-TC; A4606; A9503; J0696; J2060; J3475; J7030; J7040; J7050; J7060; Z7610

== ENCOUNTER 2016-12-31 13:08 | Inpatient (IN) | payer MEDICARE, BC ==
[~2016-12-31] VITALS: Ht 167.6 cm; Wt 76.2 kg
[~2016-12-31 13:08] MED LIST changes: +AMIN30LI2 GT; +CEPH-570 PO; +CRAN3875 GT; +LACT10SO GT; +LORA1TAB82 IV; -MAGN400O6 GT
--- NOTE | 2016-12-31 13:16 | NUR ---
DENIA MALONE FROM [facility] D/T POSSIBLE SEIZURE VS SYNCOPE WITNESSED BY SON. PATIENT IS A/OX 1, NON VERBAL. BREATHING EVEN AND UNLABORED. NO SOB. VITALS STABLE. IV INTACT AND PATENT ON RFA, 20 G. SAFETY AND COMFORT MEASURES IN PLACE. AWAITING MD ORDERS.
--- NOTE | 2016-12-31 13:23 | NUR ---
PATIENT TAKEN TO CT VIA STRETCHER.
[2016-12-31] MEDS ORDERED: IV NS 0.9% 1,000 ML BAG IV ONE ×2 (13:30→15:00)
--- NOTE | 2016-12-31 13:35 | NUR ---
PATIENT RETURNED FROM CT IN STABLE CONDITION.
--- NOTE | 2016-12-31 13:40 | NUR ---
AUTOMATION MACHINE BUILDER AT BEDSIDE FOR BLOOD DRAW.
[2016-12-31 13:46] LABS: BASOPHILS # (AUTO) 0.1 /CMM (0.0-0.2); BASOPHILS % (AUTO) 0.7 % (0.0-2.0); EOSINOPHILS # (AUTO) 0.1 /CMM (0.0-0.7); EOSINOPHILS % (AUTO) 0.8 % (0.0-6.0); HEMATOCRIT 38 % (33-45); HEMOGLOBIN 12.6 g/dL (11.5-14.8); LYMPHOCYTES # (AUTO) 2.5 /CMM (0.8-4.8); LYMPHOCYTES % (AUTO) 23.3 % (20.0-44.0); MEAN CORPUSCULAR HEMOGLOBIN 29 PG (26.0-33.0); MEAN CORPUSCULAR HGB CONC 33 g/dl (31.0-36.0); MEAN CORPUSCULAR VOLUME 86 fL (82-100); MONOCYTES # (AUTO) 0.4 /CMM (0.1-1.30); MONOCYTES % (AUTO) 4.2 % (2.0-12.0); NEUTROPHILS # (AUTO) 7.6 /CMM (1.8-8.9); PLATELET COUNT (AUTO) 438 /CMM (150-450); RDW COEFFICIENT OF VARIATION 14.6 (11.5-15.0); RED BLOOD CELL COUNT(AUTO) 4.45 MIL/uL (4.0-5.2); WHITE BLOOD COUNT (AUTO) 10.7 K/uL (4.3-11.0)
--- NOTE | 2016-12-31 13:50 | NUR ---
URINE OBTAINED VIA STRAIGHT CATH AND SENT TO LAB.
[2016-12-31 13:55] LABS: APPEARANCE,URINE Slightly Cloudy (CLEAR); BILIRUBIN,URINE Negative (NEGATIVE); BLOOD, URINE Moderate Ery/uL (NEGATIVE); COLOR,URINE Yellow (YELLOW); KETONES,URINE Negative (NEGATIVE); LEUKOCYTE ESTERASE ,URINE Large (NEGATIVE); NITRITE, URINE Negative (NEGATIVE); PH,URINE 6.5 (5.0-8.0); PROTEIN,URINE Negative (NEGATIVE); UGLUCOSE Negative (NEGATIVE); UROBILINOGEN,URINE 0.2 EU/dL (0.2)
[2016-12-31 13:57] LABS: CALCIUM, SERUM 8.7 mg/dL (8.5-10.1); CARBON DIOXIDE 24 mmol/L (21-32); CHLORIDE 101 mmol/L (98-107); CREATININE 0.9 mg/dL (0.6-1.3); GLUCOSE 154 mg/dL (74-106); POTASSIUM 3.6 mmol/L (3.5-5.1); SODIUM SERUM 135 mmol/L (136-145); UREA NITROGEN, BLOOD 14 mg/dL (7-18)
[2016-12-31 14:00] LABS: INR 0.95 (0.87-1.13); PROTHROMBIN TIME 9.9 SECS (9.5-12.7)
[2016-12-31 14:02] LABS: ALANINE AMINOTRANSFERASE 17 U/L (12-78); ALBUMIN 2.8 g/dL (3.4-5.0); ALKALINE PHOSPHATASE 87 U/L (46-116); ASPARTATE AMINOTRANSFERASE 14 U/L (15-37); BILIRUBIN,DIRECT 0.1 mg/dL (0.0-0.2); BILIRUBIN,TOTAL 0.3 mg/dL (0.2-1.0); TOTAL PROTEIN, SERUM 6.7 g/dL (6.4-8.2)
[2016-12-31 14:05] LABS: TROPONIN I < 0.017 ng/mL (0.00-0.056)
[2016-12-31 14:08] LABS: SQUAMOUS EPITHELIAL CELL,UR Few /HPF (None Seen); WBC,URINE TOO NUMEROUS TO COUN /HPF (0-3)
[2016-12-31 14:09] LABS: BACTERIA,URINE Many /HPF (None Seen)
--- NOTE | 2016-12-31 14:48 | NUR ---
PER DR. VÁZQUEZ, GIVE 400ML NS ON TOP OF PREVIOUS 2L.
[2016-12-31] MEDS ORDERED: PIPERACILLIN /TAZOBACTAM 3.375 G in IV D5W 50 ML IV ONE (15:00)
[2016-12-31] MEDS ORDERED: Z GUARD REMEDY 2 OZ OINT TP PRN (15:30)
[2016-12-31] MEDS ORDERED: ACETAMINOPHEN 325 MG TABLET PO PRN (15:30)
[2016-12-31] MEDS ORDERED: NA PHOS,M-B/NA PHOS,DI-BA 1 EA ENEMA RC PRN (15:30)
[2016-12-31] MEDS ORDERED: MAG HYDROX/AL HYDROX/SIMETH 30 ML UDC PO PRN (15:30)
[2016-12-31] MEDS ORDERED: LORAZEPAM 1 MG TABLET GT PRN (15:30)
[2016-12-31] MEDS ORDERED: HYDROCODONE/APAP 5/325MG 1 EACH TABLET PO PRN (15:30)
[2016-12-31] MEDS ORDERED: MAGNESIUM HYDROXIDE 30 ML UDC PO PRN (15:30)
[2016-12-31] MEDS ORDERED: ONDANSETRON HCL/PF 4 MG/2 ML VIAL IVP PRN (15:30)
[2016-12-31] MEDS ORDERED: ACETAMINOPHEN 650 MG/20.3 ML UDC GT PRN (15:30)
[2016-12-31 15:49] LABS: EOSINOPHILS % (MANUAL) 2 % (0-4); LYMPHOCYTES % (MANUAL) 24 % (16-48); MONOCYTES % (MANUAL) 10 % (0-11.0); NEUTROPHILS % (MANUAL) 64 (42-76)
--- NOTE | 2016-12-31 16:42 | NUR ---
REPORT GIVEN TO MOSES MASSEY FOR ADMISSION.
[2016-12-31 17:00] VITALS: BP 138/78
--- NOTE | 2016-12-31 17:00 | NUR ---
WINDOW DRESSER: ADMISSION NOTES PT TRANSFERRED FROM ER TO TELE. REPORT GIVEN BY OLIVIA. 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 A/OX1. CAME FROM [facility]. SR AT 98BPM. INCONTINENT WITH DIAPER. SKIN INTACT. BEDREST. PARAPLEGIC. PARALYSIS OF BLE. ON G-TUBE. AWAITING ORDER FOR FEEDING. G-TUBE PATENT AND CLEAR. RFA #20 G HL. NO DISTRESS. NO SOB NOTED. NO PAIN NOTED. BEDREST. BP 134/78, PULSE 98, TEMP 98.6, 02 96% ON ROOM AIR, RR 20. SON MAI AT BEDSIDE. FALL PRECAUTIONS IN PLACE. BED ALARM ON. RESTING COMFORTABLY IN BED. CALL LIGHT WITHIN REACH.
--- NOTE | 2016-12-31 17:05 | NUR ---
PATIENT TRANSPORTED TO [facility] VIA ACLS PROTOCOL FOR ADMISSION. MOSES MASSEY TO PROVIDE DELTA.
[2016-12-31] MEDS ORDERED: FIBERSOURCE HN 1,000 ML BOTTLE GT PRN ×2 (17:30→20:00)
[2016-12-31] MEDS ORDERED: BISACODYL SUPP (10 MG) 10 MG/SUPP.RECT SUPP.RECT RC PRN (17:30)
[2016-12-31] MEDS: VITAMINS A AND D 56.7 GM TUBE TP SCH (18:30)
[2016-12-31] MEDS: IV NS 0.9% 1,000 ML IV PRN (18:32)
[2016-12-31] MEDS: ENOXAPARIN SODIUM 30 MG/0.3 ML DISP.SYRIN SQ SCH (18:32)
[2016-12-31] MEDS: PROSOURCE / PROSTAT (PYXIS) 30 ML UDC GT SCH (18:32)
--- NOTE | 2016-12-31 18:54 | NUR ---
PAINT LABORATORY TECHNICIAN: CLOSING NOTE PT A/OX1. ON TELE MONITOR. SR. BEDREST. PARAPLEGIC OF BLE. INCONTINENT AND USES DIAPER. RFA #20 RUNNING NS AT 75ML/HR. ORDER OF FIBER SOURCE @70ML/HR. AWAITING ARRIVAL FROM [facility]. G-TUBE SITE CLEAR AND PATENT. ALL MEDICATIONS GIVEN VIA G-TUBE. SKIN INTACT. 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 AWAITING MRSA RESULTS. NO DISTRESS NOTED. NO PAIN NOTED. NO SOB NOTED. HOB ELEVATED. RESTING COMFORTABLY IN BED. CALL LIGHT WITHIN REACH.
--- NOTE | 2016-12-31 19:05 | NUR ---
CONTACTED PHARMACY 3 TIMES FOR VITAMIN A AND E OINTMENT TO BE DELIVERED. NOT DELIVERED ON TIME TO ADMIN BEFORE SHIFT IS OVER.
--- NOTE | 2016-12-31 19:21 | NUR ---
ARTIFICIAL BREAST FABRICATOR OPENING NOTES: RECEIVED PT RESTING AND SLEEPING COMFORTABLY IN BED. PT IS A/OX1. PT IS INCONTINENT AND IS WEARING A DIAPER. PT HAS IV ON RFA #20G AND IS BEING INFUSED WITH NS AT 75ML/HR. ORDER OF FIBER SOURCE @70ML/HR. AWAITING ARRIVAL FROM [facility]. G-TUBE SITE NOTED. WAS ENDORSED THAT PT IS ON CONTACT ISOLATION FOR HX OF MRSA AND ESBL URINE. AWAITING MRSA RESULTS. NO DISTRESS NOTED. NO PAIN NOTED. NO SOB NOTED. HOB ELEVATED. BED KEPT IN LOW, LOCKED POSITION, AND SIDE RAILS X 2 UP. WILL CONTINUE TO MONITOR PT.
[2016-12-31 20:00] VITALS: BP 113/65
[2016-12-31] MEDS: PIPERACILLIN /TAZOBACTAM 3.375 G in IV D5W 50 ML IV SCH (20:07)
[2016-12-31] MEDS: FIBERSOURCE HN 1,000 ML BOTTLE GT PRN (20:39)
[2016-12-31] MEDS: LACTULOSE 10 G/15 ML UDC (PYXIS) GT SCH (21:28)
[2016-12-31] MEDS: SENNOSIDES 8.6 MG TABLET GT SCH (21:29)
[2017-01-01] VITALS (7 sets, daily range): BP systolic 96–130; BP diastolic 51–72
[2017-01-01] MEDS: PIPERACILLIN /TAZOBACTAM 3.375 G in IV D5W 50 ML IV SCH ×4 (02:01→21:57)
--- NOTE | 2017-01-01 06:43 | NUR ---
FIELD COIL WINDER CLOSING NOTES: ALL NEEDS WERE ATTENDED AND ANTICIPATED FOR. PT RESTING AND SLEEPING COMFORTABLY IN BED. PT IS A/OX1. PT IS INCONTINENT AND IS WEARING A DIAPER. PT HAS IV ON RFA #20G AND IS BEING INFUSED WITH NS AT 75ML/HR. PT ON GTUBE FEEDING FIBERSOURCE AT 70ML/HR. NO RESIDUAL NOTED. WAS ENDORSED THAT PT IS ON CONTACT ISOLATION FOR HX OF MRSA AND ESBL URINE. AWAITING MRSA RESULTS. NO DISTRESS NOTED. NO PAIN NOTED. NO SOB NOTED. HOB ELEVATED. BED KEPT IN LOW, LOCKED POSITION, AND SIDE RAILS X 2 UP. PT ON TELE BOX AND READING SHOWS SR 72. WILL ENDORSE TO AM NURSE FOR DELTA.
--- NOTE | 2017-01-01 07:48 | NUR ---
RN NOTES PATIENT PULLED OUT IV. ATTEMPTED TO REINSERT, BUT PATIENT REFUSING. WILL ATTEMPT AGAIN.
[2017-01-01] MEDS ORDERED: Medication Not On Formulary EA (Cran/Vitc/Mannose/Inulin/Brom (Uti-Stat Liquid) 30 ML) GT SCH (09:00)
[2017-01-01] MEDS: PROSOURCE / PROSTAT (PYXIS) 30 ML UDC GT SCH (09:29)
[2017-01-01] MEDS: LACTULOSE 10 G/15 ML UDC (PYXIS) GT SCH ×4 (09:29→21:07)
[2017-01-01] MEDS: DOCUSATE SODIUM LIQ 100 MG/10 ML UDC GT SCH (09:29)
--- NOTE | 2017-01-01 09:29 | NUR ---
RN NOTES WAS ABLE TO INSERT A NEW IV. CALLED PHARMACY FOR MISSING A&D CREAM.
[2017-01-01] MEDS: IV NS 0.9% 1,000 ML IV PRN (09:32)
--- NOTE | 2017-01-01 10:40 | NUR ---
RN NOTES DR MARINO CALLED AND GAVE VERBAL ORDER FOR MITTENS.
--- NOTE | 2017-01-01 11:02 | NUR ---
RN NOTES CALLED PHARMACY AGAIN PATIENT A&D CREAM IS STILL MISSING. PHARMACY STATES THEY WILL SEND IT.
[2017-01-01] MEDS: PETROLATUM,WHITE PACKET 5 GM PACKET TP PRN (11:27)
[2017-01-01] MEDS: VITAMINS A AND D 56.7 GM TUBE TP SCH ×3 (11:28→16:35)
[2017-01-01 12:05] LABS: CALCIUM, SERUM 8.4 mg/dL (8.5-10.1); CARBON DIOXIDE 30 mmol/L (21-32); CHLORIDE 104 mmol/L (98-107); CREATININE 0.6 mg/dL (0.6-1.3); GLUCOSE 100 mg/dL (74-106); MAGNESIUM 1.9 mg/dL (1.8-2.4); PHOSPHORUS 2.7 mg/dL (2.5-4.9); POTASSIUM 3.6 mmol/L (3.5-5.1); SODIUM SERUM 141 mmol/L (136-145); UREA NITROGEN, BLOOD 11 mg/dL (7-18)
[2017-01-01 12:08] LABS: EOSINOPHILS # (AUTO) 0.1 /CMM (0.0-0.7); EOSINOPHILS % (AUTO) 1.2 % (0.0-6.0); HEMATOCRIT 36 % (33-45); HEMOGLOBIN 11.6 g/dL (11.5-14.8); LYMPHOCYTES # (AUTO) 2.8 /CMM (0.8-4.8); LYMPHOCYTES % (AUTO) 29.5 % (20.0-44.0); MEAN CORPUSCULAR HEMOGLOBIN 29 PG (26.0-33.0); MEAN CORPUSCULAR HGB CONC 33 g/dl (31.0-36.0); MEAN CORPUSCULAR VOLUME 87 fL (82-100); MONOCYTES # (AUTO) 0.7 /CMM (0.1-1.30); MONOCYTES % (AUTO) 7.1 % (2.0-12.0); NEUTROPHILS % (AUTO) 62.2 % (43.0-81.0); PLATELET COUNT (AUTO) 364 /CMM (150-450); RDW COEFFICIENT OF VARIATION 15.3 (11.5-15.0); RED BLOOD CELL COUNT(AUTO) 4.09 MIL/uL (4.0-5.2); WHITE BLOOD COUNT (AUTO) 9.6 K/uL (4.3-11.0)
[2017-01-01] MEDS: FIBERSOURCE HN 1,000 ML BOTTLE GT PRN (14:18)
--- NOTE | 2017-01-01 18:58 | NUR ---
PROCEDURES RN CLOSING NOTES NO SIGNIFICANT CHANGES IN PATIENT CONDITION THROUGHOUT THE SHIFT. NO SOB OR DISTRESS NOTED AT THIS TIME. PATIENT DOES NOT APPEAR TO BE IN PAIN, NO FACIAL GRIMACE NOTED. HEART RATE SR AT 85. BED IN A LOW POSITION, WILL ENDORSE FOR DELTA.
--- NOTE | 2017-01-01 19:00 | NUR ---
TELE EQUIPMENT SERVICE TECHNICIAN INITIAL NOTES GOT REPORT FROM AM NURSE REGLA AND CHECKED THE PATIENT, SHE'S RESTING AT THIS TIME WITH EYES CLOSED BUT AROUSES TO TOUCH, ON SEMI FOWLERS POSITION WITH SIDE RIALS X3 UP AND BED IN LOW AND LOCK IN POSITION. PT STILL ON G-TUBE FEEDING FIBERSOURCE AT 70ML/HR , NO ASPIRATION NOTED. PT ON MITTENS TO PREVENT HER FROM PULLING HER IV LINE AND TUBE. NO SIGNS OF SEIZURE NOTED AT THIS TIME . TELE SR PER MONITOR. ON MRSA NARES, ISOLATION AND FALL PRECAUTION IMPLEMENTED AND OBSERVED. WILL CONTINUE TO MONITOR.
[2017-01-01] MEDS: SENNOSIDES 8.6 MG TABLET GT SCH (21:07)
[2017-01-01] MEDS: ENOXAPARIN SODIUM 30 MG/0.3 ML DISP.SYRIN SQ SCH (21:09)
[2017-01-02] VITALS: BP 101/64
[2017-01-02] MEDS: PIPERACILLIN /TAZOBACTAM 3.375 G in IV D5W 50 ML IV SCH ×3 (04:29→16:13)
[2017-01-02] MEDS: FIBERSOURCE HN 1,000 ML BOTTLE GT PRN ×2 (05:47→16:33)
[2017-01-02] MEDS: IV NS 0.9% 1,000 ML IV PRN ×2 (05:47→16:25)
--- NOTE | 2017-01-02 07:08 | NUR ---
MS STAFFING DIRECTOR CLOSING NOTES PT BACK TO REST AFTER MORNING CARE DONE, STABLE BARBARA THE NIGHT AND SLEPT WELL. NO SIGNS OF ANY ACUTE DISTRESS OR DISCOMFORT NOTED BARBARA THE NIGHT. ALL DUE MEDS GIVEN. G-TUBE FEEDING TOLERATED WELL NO ASPIRATION NOTED. IVF STILL INFUSING ON HER RIGHT UPPER ARM . KEPT HER WARM AND COMFORTABLE AT ALL TIMES. PLACE CALL LIGHT AT REACH. FALL RISK AND ISOLATION PRECAUTION IMPLEMENTED AND OBSERVED. ENDORSE TO AM NURSE FOR CONTINUITY OF CARE.
--- NOTE | 2017-01-02 07:15 | NUR ---
RN INITIAL NOTES: RECEIVED PATIENT RESTING IN BED. PATIENT ALERT ORIENTED X1. NONLABORED BREATHING NOTED. NO SIGNS OF DISTRESS. WHEN ASKED ABOUT PAIN, PATIENT STATED NO PAIN. NO FACIAL GRIMACES NOTED. IV SITE PATENT AND INTACT. BED IN LOWEST LOCKED POSITION. CALL LIGHT WTIHIN REACH. WILL CONTINUE TO MONITOR. NO SIGNS OF SEIZURES NOTED. PREVIOUS SHIFT STATED THAT NO SEIZURES WERE NOTED.
[2017-01-02 08:00] VITALS: BP 128/74
[2017-01-02] MEDS: DOCUSATE SODIUM LIQ 100 MG/10 ML UDC GT SCH (08:16)
[2017-01-02] MEDS: LACTULOSE 10 G/15 ML UDC (PYXIS) GT SCH ×4 (08:16→21:17)
[2017-01-02] MEDS: PROSOURCE / PROSTAT (PYXIS) 30 ML UDC GT SCH (08:16)
[2017-01-02] MEDS: VITAMINS A AND D 56.7 GM TUBE TP SCH ×3 (08:25→16:31)
--- NOTE | 2017-01-02 08:30 | NUR ---
RN NOTES: PATIENT ALERT ORIENTED X1. PATIENT NOTED TRYING TO REMOVE IV. PATIENT ALSO NOTED TRYING TO PULL ON GTUBE WHEN MITTENS REMOVED. PATIENT REORIENTED, IS IN A ROOM NEAR NURSING STATION, KEPT CLEAN AND DRY, ASKED IF HAS PAIN AND PATIENT STATED NO, CALL LIGHT EDUCATION DONE, AND CHECKS DONE EVERY 15 MINS, CIRCULATION CHECKED EVERY 15 MINS, AND RELEASE OF MITTENS DONE. SPOKE TO DOCTOR NED REGARDING THIS. HE STATED TO RENEW THE RESTRAINTS FOR TODAY, BILATERAL MITTENS. WILL CONTINUE TO MONITOR AND REORIENT PATIENT
[2017-01-02 16:00] VITALS: BP 150/70
[2017-01-02] MEDS: CEFTRIAXONE 1 G in IV D5W 50 ML IV SCH (18:48)
--- NOTE | 2017-01-02 19:11 | NUR ---
RN CLOSING NOTES: RECEIVED PATIENT RESTING IN BED. PATIENT ALERT ORIENTED X1. NONLABORED BREATHING NOTED. NO SIGNS OF DISTRESS. ROCEPHIN ADMINISTERED EARLIER. NO SIGNS OF DISTRESS NOTED.TOLERATED WELL. NO FACIAL GRIMACES NOTED. IV SITE STARTED ON LEFT HAND. PREVIOUS IV SITE REMOVED DUE TO REDNESS AND PAIN AROUND SITE. PATIENT OFFERED WARM PACK. BED IN LOWEST LOCKED POSITION. CALL LIGHT WTIHIN REACH. WILL CONTINUE TO MONITOR. NO SIGNS OF SEIZURES NOTED. WILL ENDORSE TO NEXT SHIFT
[2017-01-02 20:00] VITALS: BP 122/77
[2017-01-02] MEDS: SENNOSIDES 8.6 MG TABLET GT SCH (21:17)
[2017-01-02] MEDS: ENOXAPARIN SODIUM 30 MG/0.3 ML DISP.SYRIN SQ SCH (21:18)
[2017-01-02 22:00] VITALS: BP 112/77
--- NOTE | 2017-01-02 23:12 | NUR ---
MS RN NOTE REPORT GIVEN TO SHILPA HUMPHREY FOR DELTA.
--- NOTE | 2017-01-02 23:15 | NUR ---
RN NOTES RECEIVED PT FROM ANOTHER NURSE NEELA, PT IS SLEEPING BUT AROUSABLE, A/OX1, G=-TUBE FEEDING RUNNING @ 70ML/HR, NO RESIDUAL NOTED, CALL LIGHT WITHIN REACH, SIDERAILS UPX2 CONTINUE TO MONITOR
[2017-01-03] MEDS: FIBERSOURCE HN 1,000 ML BOTTLE GT PRN ×2 (05:31→21:20)
--- NOTE | 2017-01-03 06:34 | NUR ---
RN NOTES AWAKE, G-TUBE IN PLACE , FEEDING RUNNING @ 70ML/HR, MORNING CARE RENDERED, CALL LIGHT WITHIN REACH, SIDERAILS UPX 2, IV LINE PATENT NO REDNESS OR SWOLLEN, PT. NEEDS ATTENDED
[2017-01-03 06:50] LABS: BASOPHILS % (AUTO) 0.1 % (0.0-2.0); EOSINOPHILS # (AUTO) 0.2 /CMM (0.0-0.7); HEMATOCRIT 39 % (33-45); HEMOGLOBIN 12.9 g/dL (11.5-14.8); MEAN CORPUSCULAR HEMOGLOBIN 29 PG (26.0-33.0); MEAN CORPUSCULAR HGB CONC 34 g/dl (31.0-36.0); MEAN CORPUSCULAR VOLUME 86 fL (82-100); MONOCYTES # (AUTO) 0.7 /CMM (0.1-1.30); MONOCYTES % (AUTO) 8.4 % (2.0-12.0); NEUTROPHILS # (AUTO) 5.3 /CMM (1.8-8.9); NEUTROPHILS % (AUTO) 64.5 % (43.0-81.0); PLATELET COUNT (AUTO) 404 /CMM (150-450); RDW COEFFICIENT OF VARIATION 15.4 (11.5-15.0); RED BLOOD CELL COUNT(AUTO) 4.46 MIL/uL (4.0-5.2); WHITE BLOOD COUNT (AUTO) 8.2 K/uL (4.3-11.0)
[2017-01-03 06:59] LABS: CALCIUM, SERUM 8.8 mg/dL (8.5-10.1); CARBON DIOXIDE 30 mmol/L (21-32); CHLORIDE 109 mmol/L (98-107); CREATININE 0.6 mg/dL (0.6-1.3); GLUCOSE 104 mg/dL (74-106); POTASSIUM 4.2 mmol/L (3.5-5.1); SODIUM SERUM 145 mmol/L (136-145); UREA NITROGEN, BLOOD 14 mg/dL (7-18)
--- NOTE | 2017-01-03 07:56 | NUR ---
MS/RN OPENING NOTE PATIENT RECEIVED IN BED IN STABLE CONDITION. A/O X 1. NO SIGNS OF ACUTE DISTRESS. NO COMPLAIN OF PAIN OR DISCOMFORT. ON GTUBE FEEDING TOLERATING WELL. HOB ELEVATED FOR ASPIRATION PRECAUTION. ALL NEEDS ATTENDED TO. CALL LIGHT WITHIN REACH. WILL CONTINUE TO MONITOR TO ENSURE SAFETY.
[2017-01-03 08:00] VITALS: BP 119/69
[2017-01-03] MEDS: LACTULOSE 10 G/15 ML UDC (PYXIS) GT SCH ×4 (08:50→21:27)
[2017-01-03] MEDS: PROSOURCE / PROSTAT (PYXIS) 30 ML UDC GT SCH (08:50)
[2017-01-03] MEDS: DOCUSATE SODIUM LIQ 100 MG/10 ML UDC GT SCH (08:50)
[2017-01-03] MEDS: VITAMINS A AND D 56.7 GM TUBE TP SCH ×3 (08:51→16:41)
[2017-01-03] MEDS: IV NS 0.9% 1,000 ML IV PRN ×2 (08:58→21:26)
--- NOTE | 2017-01-03 10:21 | NUR ---
MS/RN SEEN BY DR CALDERON PATIENT SEEN BY DR CALDERON WITH ORDERS FOR CBC, BMP, MG, PHOS IN AM
[2017-01-03 16:00] VITALS: BP 122/70
[2017-01-03] MEDS: CEFTRIAXONE 1 G in IV D5W 50 ML IV SCH (16:41)
--- NOTE | 2017-01-03 19:00 | NUR ---
MS/RN CLOSING NOTE PATIENT IN BED IN STABLE CONDITION. A/O X 1. NO SIGNS OF ACUTE DISTRESS. NO COMPLAIN OF PAIN OR DISCOMFORT. ON GTUBE FEEDING TOLERATING WELL. HOB ELEVATED FOR ASPIRATION PRECAUTION. ALL NEEDS ATTENDED TO. CALL LIGHT WITHIN REACH. WILL ENDORSE TO NEXT SHIFT FOR CONTINUITY OF CARE.
--- NOTE | 2017-01-03 19:24 | NUR ---
MS RN OPENING NOTES PT IN BED RESTING, PT A/O X1, IN STABLE CONDITION. BREATHING EVEN AND UNLABORED, SAFETY MEASURES IN PLACE, BED LOCKED AND IN LOWEST POSITION, CALL LIGHT IN REACH. WILL CONTINUE TO MONITOR.
[2017-01-03 20:00] VITALS: BP 111/70
[2017-01-03] MEDS: SENNOSIDES 8.6 MG TABLET GT SCH (21:26)
[2017-01-03] MEDS: ENOXAPARIN SODIUM 30 MG/0.3 ML DISP.SYRIN SQ SCH (21:31)
--- NOTE | 2017-01-04 06:49 | NUR ---
MS RN CLOSING NOTES PATIENT COMFORTABLY ASLEEP AND EASILY AWAKEN, HEAD OF BED ELEVATED FOR BETTER LUNG EXPANSION, TOLERATING ROOM AIR 02 SAT 98%. GT INFUSING ORDERED, TOLERATED WELL. RESPIRATIONS EVEN AND UNLABORED. NO S/S OF ACUTE DISTRESS, NO SOB, SKIN WARM AND DRY TO TOUCH, AFEBRILE, NURSING CARE RENDERED, NEEDS ATTENDED AND ANTICIPATED, KEPT CLEAN AND DRY AND COMFORTABLE. GOOD SKIN CARE PROVIDED. ALL DUE MEDS WAS GIVEN TOLERATED. FREQUENT VISUAL CHECK DONE FOR SAFETY EVERY 2 HOURS. ASSISTED REPOSITION Q2H. SAFE HAZARD FREE ENVIRONMENT PROVIDED. CALL LIGHT WITHIN EASY TO REACH, ON LOW BED AT ALL TIMES TO ENSURE SAFETY, WILL ENDORSE TO THE NEXT SHIFT CONTINUE PLAN OF CARE.
--- NOTE | 2017-01-04 07:22 | NUR ---
MS RN OPENING NOTE RECEIVED SBAR REPORT AT THE BEDSIDE. PATIENT IS ASLEEP AND EASILY AWAKEN. CHEST RISING EQUALLY BILATERALLY. SPO2 98% ON RA. GT INFUSING ORDERED, TOLERATED WELL. RESPIRATIONS EVEN AND UNLABORED. NO S/S OF ACUTE DISTRESS. BED IS IN THE LOWEST POSITION, LOCKED, SIDE RAILS UP X3, BED ALARM ON. CALL LIGHT WITHIN REACH. PATIENT EDUCATED TO CALL FOR ASSISTANCE USING THE CALL LIGHT. VERBALIZED UNDERSTANDING. WILL CONTINUE TO ASSESS/MONITOR THROUGHOUT THE SHIFT.
[2017-01-04 07:28] LABS: BASOPHILS % (AUTO) 0.4 % (0.0-2.0); EOSINOPHILS # (AUTO) 0.4 /CMM (0.0-0.7); EOSINOPHILS % (AUTO) 4.8 % (0.0-6.0); HEMATOCRIT 37 % (33-45); HEMOGLOBIN 12.3 g/dL (11.5-14.8); LYMPHOCYTES # (AUTO) 2.5 /CMM (0.8-4.8); MEAN CORPUSCULAR HEMOGLOBIN 29 PG (26.0-33.0); MEAN CORPUSCULAR HGB CONC 33 g/dl (31.0-36.0); MEAN CORPUSCULAR VOLUME 87 fL (82-100); MONOCYTES # (AUTO) 0.7 /CMM (0.1-1.30); MONOCYTES % (AUTO) 7.8 % (2.0-12.0); NEUTROPHILS # (AUTO) 4.8 /CMM (1.8-8.9); PLATELET COUNT (AUTO) 388 /CMM (150-450); RDW COEFFICIENT OF VARIATION 15.3 (11.5-15.0); RED BLOOD CELL COUNT(AUTO) 4.26 MIL/uL (4.0-5.2); WHITE BLOOD COUNT (AUTO) 8.4 K/uL (4.3-11.0)
[2017-01-04 07:50] LABS: CALCIUM, SERUM 8.4 mg/dL (8.5-10.1); CARBON DIOXIDE 28 mmol/L (21-32); CHLORIDE 105 mmol/L (98-107); CREATININE 0.6 mg/dL (0.6-1.3); GLUCOSE 104 mg/dL (74-106); PHOSPHORUS 3.3 mg/dL (2.5-4.9); SODIUM SERUM 140 mmol/L (136-145); UREA NITROGEN, BLOOD 13 mg/dL (7-18)
[2017-01-04 08:00] VITALS: BP_SYST 120; BP_SYST 125; BP_DIAS 66; BP_DIAS 67
[2017-01-04] MEDS: VITAMINS A AND D 56.7 GM TUBE TP SCH ×3 (09:00→17:53)
[2017-01-04] MEDS: PROSOURCE / PROSTAT (PYXIS) 30 ML UDC GT SCH (09:47)
[2017-01-04] MEDS: LACTULOSE 10 G/15 ML UDC (PYXIS) GT SCH ×4 (09:48→21:29)
[2017-01-04] MEDS: DOCUSATE SODIUM LIQ 100 MG/10 ML UDC GT SCH (09:48)
[2017-01-04] MEDS: PETROLATUM,WHITE PACKET 5 GM PACKET TP PRN ×2 (09:48→13:58)
[2017-01-04] MEDS: FIBERSOURCE HN 1,000 ML BOTTLE GT PRN ×2 (14:20→21:23)
[2017-01-04 16:00] VITALS: BP 129/71
[2017-01-04] MEDS: CEFTRIAXONE 1 G in IV D5W 50 ML IV SCH (17:53)
--- NOTE | 2017-01-04 19:00 | NUR ---
MS RN OPENING NOTES RECEIVE PT IN BED AWAKE, PT A/O X 1, NO S/S OF DISTRESS NOTED. BREATHING EVEN AND UNLABORED, SAFETY MEASURES IN PLACE, BED LOCKED AND IN LOWEST POSITION, CALL LIGHT IN REACH. WILL CONTINUE TO MONITOR.
[2017-01-04 20:00] VITALS: BP 121/69
[2017-01-04] MEDS: SENNOSIDES 8.6 MG TABLET GT SCH (21:29)
[2017-01-04] MEDS: ENOXAPARIN SODIUM 30 MG/0.3 ML DISP.SYRIN SQ SCH (21:31)
--- NOTE | 2017-01-05 06:35 | NUR ---
MS RN CLOSING NOTES ASLEEP AND EASILY AWAKEN. HEAD OF BED ELEVATED FOR BETTER LUNG EXPANSION, TOLERATING ROOM AIR 02 SAT 98% GT INFUSING AND TOLERATED WELL ORDERED. RESPIRATIONS EVEN AND UNLABORED. IN STABLE CONDITION NO S/S OF ACUTE DISTRESS, AFEBRILE, NURSING CARE RENDERED, NEEDS ATTENDED AND ANTICIPATED, KEPT CLEAN AND DRY AND COMFORTABLE. GOOD SKIN CARE PROVIDED. ASSISTED REPOSITION EVERY 2 HOURS FOR COMFORT. FREQUENT VISUAL CHECK DONE FOR SAFETY EVERY 2 HOURS. SAFE HAZARD FREE ENVIRONMENT PROVIDED. CALL LIGHT WITHIN EASY TO REACH, ON LOW BED AT ALL TIMES TO ENSURE SAFETY, WILL ENDORSE TO THE NEXT SHIFT CONTINUE PLAN OF CARE
[2017-01-05 08:00] VITALS: BP 123/70
--- NOTE | 2017-01-05 08:00 | NUR ---
RN NOTES RECEIVED PATIENT IN THE BED. A/O X1, CONFUSED, GET IRRITABLE WHEN TOUCHED, NO RESPIRATORY DISTRESS. PATIENT ON G-TUBE FEEDING FIBERSOURCE 60 ML/HR, INTACT. PLACEMENT, AND RESIDUAL CHECKED. MEDICATION GIVEN VIA G-TUBE. PT HAS IV HEP LINE ON LEFT HAND INTACT. PATIENT HAS NO C/O PAIN, NEEDS ATTENDED AND ANTICIPATED, CALL MORIN WITHIN TO REACH, SAFETY PRECAUTION MAINTAINED ALL THE TIME. CONTINUED MONITORING.
[2017-01-05] MEDS: FIBERSOURCE HN 1,000 ML BOTTLE GT PRN (08:07)
[2017-01-05] MEDS: PROSOURCE / PROSTAT (PYXIS) 30 ML UDC GT SCH (08:08)
[2017-01-05] MEDS: VITAMINS A AND D 56.7 GM TUBE TP SCH ×2 (08:08→14:04)
[2017-01-05] MEDS: DOCUSATE SODIUM LIQ 100 MG/10 ML UDC GT SCH (08:33)
[2017-01-05] MEDS: LACTULOSE 10 G/15 ML UDC (PYXIS) GT SCH ×2 (08:33→14:03)
[2017-01-05 11:11] LABS: BASOPHILS % (AUTO) 0.3 % (0.0-2.0); EOSINOPHILS # (AUTO) 0.3 /CMM (0.0-0.7); EOSINOPHILS % (AUTO) 2.3 % (0.0-6.0); HEMATOCRIT 38 % (33-45); HEMOGLOBIN 12.6 g/dL (11.5-14.8); LYMPHOCYTES # (AUTO) 2.2 /CMM (0.8-4.8); MEAN CORPUSCULAR HEMOGLOBIN 28 PG (26.0-33.0); MEAN CORPUSCULAR HGB CONC 33 g/dl (31.0-36.0); MEAN CORPUSCULAR VOLUME 86 fL (82-100); MONOCYTES # (AUTO) 0.8 /CMM (0.1-1.30); MONOCYTES % (AUTO) 5.6 % (2.0-12.0); NEUTROPHILS # (AUTO) 10.6 /CMM (1.8-8.9); NEUTROPHILS % (AUTO) 75.8 % (43.0-81.0); PLATELET COUNT (AUTO) 416 /CMM (150-450); RDW COEFFICIENT OF VARIATION 15.2 (11.5-15.0); RED BLOOD CELL COUNT(AUTO) 4.45 MIL/uL (4.0-5.2)
[2017-01-05 11:24] LABS: CARBON DIOXIDE 30 mmol/L (21-32); CHLORIDE 103 mmol/L (98-107); CREATININE 0.6 mg/dL (0.6-1.3); GLUCOSE 125 mg/dL (74-106); MAGNESIUM 1.9 mg/dL (1.8-2.4); PHOSPHORUS 3.5 mg/dL (2.5-4.9); POTASSIUM 4.3 mmol/L (3.5-5.1); SODIUM SERUM 138 mmol/L (136-145); UREA NITROGEN, BLOOD 15 mg/dL (7-18)
--- NOTE | 2017-01-05 12:00 | NUR ---
RN NOTES PATIENT HAS NO RESPIRATORY DISTRESS, PER MD ORDER PATIENT GOING TO D/C BACK TO SNF, NEEDS ATTENDED AND ANTICIPATED, ASSIST TURN AND REPOSITION Q 2 HR, CONTINUED G-TUBE FEEDING. CALL MORIN WITHIN TO REACH, SAFETY PRECAUTION MAINTAINED ALL THE TIME.
--- NOTE | 2017-01-05 14:50 | NUR ---
PATIENT CARE MANAGER NOTES PATIENT DISCHARGE AT THIS TIME GOING BACK TO THE SNF. PATIENT A/O X1, CONFUSED, NO RESPIRATORY DISTRESS, MEDICATION GIVEN BT VIS G-TUBE, V/S STABLE, NO C/O PAIN, MEDICALLY STABLE.PATIENT ON G-TUBE FEEDING, INTACT, IV LINE ON LEFT HAND INTACT. MED RECONCILIATION, AND DISCHARGE ORDER REVIEWED AND EXPLAINED TO. REPORT GIVEN SNF SHILPA SOTELO. RN VERBALIZED UNDERSTANDING. PATIENT HAS NO BELONGING. FAMILY NOTIFIED. PATIENT WASTE EXAMINER BY AMBULANCE.
== END 2017-01-05 14:45 | DRG 689 ==
LOC: ER 13:09 → TELE 16:59 → MED 01-02 05:01
PROVIDERS: ADMIT Internal Medicine; ATTEND Internal Medicine
DX: N39.0 Urinary tract infection, site not specified (principal); G92 Toxic encephalopathy; E43 Unspecified severe protein-calorie malnutrition; R53.2 Functional quadriplegia; D68.69 Other thrombophilia; E88.09 Other disorders of plasma-protein metabolism, not elsewhere classified; Z93.1 Gastrostomy status; D63.8 Anemia in other chronic diseases classified elsewhere; R13.10 Dysphagia, unspecified; E11.9 Type 2 diabetes mellitus without complications; I25.10 Atherosclerotic heart disease of native coronary artery without angina pectoris; K21.9 Gastro-esophageal reflux disease without esophagitis; F03.90 Unspecified dementia, unspecified severity, without behavioral disturbance, psychotic disturbance, mood disturbance, and anxiety; R62.7 Adult failure to thrive; M62.50 Muscle wasting and atrophy, not elsewhere classified, unspecified site; Z88.2 Allergy status to sulfonamides; Z68.27 Body mass index [BMI] 27.0-27.9, adult; B96.20 Unspecified Escherichia coli [E. coli] as the cause of diseases classified elsewhere
CPT/HCPCS: 36415; 70450-TC; 71010-TC; 80048-TC; 80076-TC; 81000-TC; 83605-TC; 83735-TC; 84100-TC; 84484-TC; 85025-TC; 85730-TC; 87040-TC; 87081-TC; 87086-TC; 87186-TC; 95819-TC; J0696; J1650; J2543; J7030; J7040; J7060

== ENCOUNTER 2017-02-17 08:50 | Inpatient (IN) | payer MEDICARE, BC ==
[~2017-02-17] VITALS: Ht 177.8 cm; Wt 75.7 kg
[~2017-02-17 08:50] MED LIST changes: +LORA-259 IV; -LORA1TAB82 IV; +SENN-167 GT; -SENN8.6T6 GT
--- NOTE | 2017-02-17 08:50 | NUR ---
PHARMACY CALLED,SPOKE WITH CLEO, TO SEND ROCEPHIN IV, [facility] IS OUT OF STOCK
[2017-02-17] MEDS ORDERED: CEFTRIAXONE 1GM BAG (ER ONLY) 50 ML IV ONE ×2 (09:00→10:10)
[2017-02-17] MEDS ORDERED: IV NS 0.9% 1,000 ML BAG IV ONE (09:00)
--- NOTE | 2017-02-17 09:10 | NUR ---
DENIA MALONE FROM [facility] FOR SEIZURE LIKE ACTIVITY/SHAKING. BS 154 IN FIELD. SON AT BEDSIDE. LEFT LOWER LIP BLEEDING. PT APHASIC, ALTERED. SINUS TACK ON TELE. TEMP 100.2. PT CLEANED, GOWN CHANGED, PLACED ON MONITOR. ALL SAFETY MEASURES TAKEN. WILL CONTINUE TO MONITOR.
[2017-02-17 09:19] LABS: BASOPHILS # (AUTO) 0.1 /CMM (0.0-0.2); BASOPHILS % (AUTO) 0.5 % (0.0-2.0); EOSINOPHILS # (AUTO) 0.3 /CMM (0.0-0.7); EOSINOPHILS % (AUTO) 3.3 % (0.0-6.0); HEMATOCRIT 40 % (33-45); HEMOGLOBIN 12.9 g/dL (11.5-14.8); LYMPHOCYTES # (AUTO) 2.9 /CMM (0.8-4.8); LYMPHOCYTES % (AUTO) 27.9 % (20.0-44.0); MEAN CORPUSCULAR HEMOGLOBIN 28 PG (26.0-33.0); MEAN CORPUSCULAR HGB CONC 32 g/dl (31.0-36.0); MEAN CORPUSCULAR VOLUME 86 fL (82-100); MONOCYTES # (AUTO) 0.6 /CMM (0.1-1.30); MONOCYTES % (AUTO) 5.9 % (2.0-12.0); NEUTROPHILS # (AUTO) 6.4 /CMM (1.8-8.9); NEUTROPHILS % (AUTO) 62.4 % (43.0-81.0); PLATELET COUNT (AUTO) 413 /CMM (150-450); RED BLOOD CELL COUNT(AUTO) 4.65 MIL/uL (4.0-5.2); WHITE BLOOD COUNT (AUTO) 10.3 K/uL (4.3-11.0)
[2017-02-17 09:28] LABS: CARBON DIOXIDE 27 mmol/L (21-32); CHLORIDE 100 mmol/L (98-107); CREATININE 0.8 mg/dL (0.6-1.3); GLUCOSE 113 mg/dL (74-106); POTASSIUM 3.7 mmol/L (3.5-5.1); SODIUM SERUM 137 mmol/L (136-145); UREA NITROGEN, BLOOD 16 mg/dL (7-18)
[2017-02-17] MEDS ORDERED: ACETAMINOPHEN 650 MG/SUPP.RECT RC ONE ×2 (09:30→10:21)
[2017-02-17 09:35] LABS: ALANINE AMINOTRANSFERASE 21 U/L (12-78); ALKALINE PHOSPHATASE 87 U/L (46-116); ASPARTATE AMINOTRANSFERASE 25 U/L (15-37); BILIRUBIN,TOTAL 0.2 mg/dL (0.2-1.0); TOTAL PROTEIN, SERUM 7.3 g/dL (6.4-8.2)
[2017-02-17 09:36] LABS: TROPONIN I < 0.017 ng/mL (0.00-0.056)
--- NOTE | 2017-02-17 09:44 | NUR ---
PAGED DR. CALDERON FOR ADMISSION
[2017-02-17 09:45] LABS: INR 0.94 (0.87-1.13); PROTHROMBIN TIME 9.8 SECS (9.5-12.7)
--- NOTE | 2017-02-17 09:45 | NUR ---
Darnell catheter inserted per sterile protocal. Immediate output 200 ML of urine, color yellow, clarity cloudy
--- NOTE | 2017-02-17 09:46 | NUR ---
AJITH FROM PHARMACY CALLED FOR BETH STARKSPB
[2017-02-17] MEDS ORDERED: MAGN400O6 GT (09:55)
[2017-02-17] MEDS ORDERED: GENTAMICIN 80 MG in IV D5W 50 ML IV ONE (10:00)
[2017-02-17 10:20] LABS: APPEARANCE,URINE CLOUDY (CLEAR); BILIRUBIN,URINE NEGATIVE (NEGATIVE); BLOOD, URINE 1+ Ery/uL (NEGATIVE); COLOR,URINE YELLOW (YELLOW); KETONES,URINE NEGATIVE (NEGATIVE); LEUKOCYTE ESTERASE ,URINE 3+ (NEGATIVE); NITRITE, URINE POSITIVE (NEGATIVE); PROTEIN,URINE NEGATIVE (NEGATIVE); UGLUCOSE NEGATIVE (NEGATIVE); UROBILINOGEN,URINE 0.2 EU/dL (0.2)
--- NOTE | 2017-02-17 10:24 | NUR ---
CALLED PHARMACY FOR IV GENTAMICIN ABX
[2017-02-17 10:38] LABS: BACTERIA,URINE 2+ /HPF (None Seen); SQUAMOUS EPITHELIAL CELL,UR Few /HPF (None Seen); WBC,URINE TOO NUMEROUS TO COUN /HPF (0-3)
[2017-02-17] MEDS ORDERED: ONDANSETRON HCL/PF 4 MG/2 ML VIAL IVP PRN ×2 (11:00→11:30)
[2017-02-17] MEDS ORDERED: ZOLPIDEM TARTRATE 5 MG TABLET PO PRN ×2 (11:00→11:30)
[2017-02-17] MEDS ORDERED: MAG HYDROX/AL HYDROX/SIMETH 30 ML UDC PO PRN ×2 (11:00→11:30)
[2017-02-17] MEDS ORDERED: ACETAMINOPHEN 325 MG TABLET PO PRN ×2 (11:00→11:30)
[2017-02-17] MEDS ORDERED: MAGNESIUM HYDROXIDE 30 ML UDC PO PRN ×2 (11:00→11:30)
[2017-02-17] MEDS ORDERED: ENOXAPARIN SODIUM 40 MG/0.4 ML DISP.SYRIN SQ SCH (11:00)
[2017-02-17] MEDS ORDERED: IV NS 0.9% 1,000 ML IV PRN ×3 (11:00→11:45)
[2017-02-17] MEDS ORDERED: Z GUARD REMEDY 2 OZ OINT TP PRN ×2 (11:00→11:30)
--- NOTE | 2017-02-17 11:05 | NUR ---
FLOUR INSPECTOR NOTES RECEIVED PT FROM E.R. STAFF VIA MIREYA, PT IS AWAKE, MAKES EYE CONTACT, WHEN ASKED HOW IS SHE, PT ABLE TO VERBALIZE "OK" AND "I WANT TO GO HOME", WHEN ASKED AGAIN, PT DOES NOT RESPOND VERBALLY, NO FACIAL GRIMACING OR MOANING, BREATHING PATTERN NORMAL AND NOT LABORED, KEPT COMFORTABLE IN BED, ROOM SET UP ORIENTATION PROVIDED, KEPT CANDLE CUTTER BED, MADE COMFORTABLE.
[2017-02-17 11:30] VITALS: BP 122/69
[2017-02-17] MEDS ORDERED: MAGNESIUM HYDROXIDE 30 ML UDC GT PRN ×2 (11:30→11:45)
[2017-02-17] MEDS ORDERED: BISACODYL (5 MG) 5 MG TABLET.DR PO PRN ×2 (11:30→11:45)
[2017-02-17] MEDS ORDERED: ACETAMINOPHEN 650 MG/20.3 ML UDC GT PRN ×2 (11:30→11:45)
[2017-02-17] MEDS ORDERED: FEE PK DOSING 1 MIN EA MC ONE (13:40)
[2017-02-17] MEDS ORDERED: GENTAMICIN 100 MG in IV D5W 100 ML IV SCH (14:00)
[2017-02-17] MEDS: ENOXAPARIN SODIUM 40 MG/0.4 ML DISP.SYRIN SQ SCH (14:54)
[2017-02-17 16:00] VITALS: BP 107/65
--- NOTE | 2017-02-17 18:20 | NUR ---
TELE/RN CLOSING NOTE PATIENT IN BED. A/O X1, MAKES EYE CONTACT. NO FACIAL GRIMACING NOTED. RESPIRATION REGULAR AND UNLABORED. IN NO APPARENT DISTRESS. BED IN LOWEST POSITION AND LOCKED, BED ALARM ON, CALL LIGHT WITHIN REACH. KEPT CLEAN, DRY AND COMFORTABLE. ALL NEEDS ATTENDED AND ANTICIPATED. WILL ENDORSE TO RESTAURANT SHIFT SUPERVISOR.
[2017-02-17] MEDS: FIBERSOURCE HN 1,000 ML BOTTLE GT PRN (19:45)
[2017-02-17] MEDS: IV NS 0.9% 1,000 ML IV PRN (19:50)
[2017-02-17 20:00] VITALS: BP 146/81
--- NOTE | 2017-02-17 20:00 | NUR ---
Ms. Reynolds recieved alert to nurse at the bedside with eye contact . Holding on to a stuffed animal, she smiles when a compliment about the toy was made. Feeding GT started via pump 1st checking placement via auscultation, no residual at this time. Asp. precautions will be maintained. Mann noted.
[2017-02-17 20:29] VITALS: BP 146/81
[2017-02-17] MEDS: GENTAMICIN 100 MG in IV D5W 100 ML IV SCH (21:40)
[2017-02-17] MEDS: SENNOSIDES 8.6 MG TABLET GT SCH (21:40)
[2017-02-17] MEDS ORDERED: SENNOSIDES 8.6 MG TABLET GT SCH (22:00)
[2017-02-18] VITALS (7 sets, daily range): BP systolic 100–116; BP diastolic 51–71
--- NOTE | 2017-02-18 05:09 | NUR ---
Ms. Reynolds remains confused to time place and situation. Holding her stuffed toy and will smile when nurse comments on her toy. Asp precautions d/t GT feeding infusing since starting at 02/17 and 1929 no residuals flushed with 60 ml X2. One soft brown BM incontinent. Skin intact. AFebrile.
--- NOTE | 2017-02-18 07:30 | NUR ---
PT RECEIVED RESTING COMFORTABLY IN BED WITH EYES CLOSED. NO S/S OR C/O PAIN OR DISTRESS NOTED. SIDE RAILS UP X2, CALL LIGHT LEFT WITHIN REACH. WILL CONTINUE PLAN OF CARE.
[2017-02-18 07:36] LABS: CALCIUM, SERUM 8.2 mg/dL (8.5-10.1); CARBON DIOXIDE 26 mmol/L (21-32); CHLORIDE 104 mmol/L (98-107); CREATININE 0.5 mg/dL (0.6-1.3); GLUCOSE 117 mg/dL (74-106); POTASSIUM 3.6 mmol/L (3.5-5.1); SODIUM SERUM 138 mmol/L (136-145); UREA NITROGEN, BLOOD 9 mg/dL (7-18)
[2017-02-18] MEDS ORDERED: DOCUSATE SODIUM LIQ 100 MG/10 ML UDC GT SCH (09:00)
[2017-02-18] MEDS: DOCUSATE SODIUM LIQ 100 MG/10 ML UDC GT SCH (10:25)
[2017-02-18] MEDS: GENTAMICIN 100 MG in IV D5W 100 ML IV SCH ×2 (10:25→21:20)
[2017-02-18] MEDS: ENOXAPARIN SODIUM 40 MG/0.4 ML DISP.SYRIN SQ SCH (10:31)
[2017-02-18] MEDS: IV NS 0.9% 1,000 ML IV PRN (13:39)
[2017-02-18] MEDS: FIBERSOURCE HN 1,000 ML BOTTLE GT PRN (13:44)
--- NOTE | 2017-02-18 17:24 | NUR ---
Patient resides at the [facility] [phone] . She requires assistance with adl's. Current plan is to dc back to the SNF via ambulance. Addendum: 02/18/17 at 1724 by LESLEY REYES RN Amended: Links added.
--- NOTE | 2017-02-18 19:12 | NUR ---
CHANGE OF SHIFT REPORT PT RESTING COMFORTABLY IN BED WITH EYES CLOSED. NO S/S OR C/O PAIN OR DISTRESS NOTED. SIDE RAILS UP X2, CALL LIGHT LEFT WITHIN REACH. PT KEPT CLEAN, DRY, AND COMFORTABLE. NO SIGNIFICANT CHANGES SINCE PREVIOUS SHIFT. WILL GIVE REPORT TO NEIDA MASSEY.
--- NOTE | 2017-02-18 19:15 | NUR ---
RN OPEN NOTES RECEIVED PATIENT AWAKE IN BED. A/O X1. NO SIGNS OF DISTRESS OR DISCOMFORT. BREATHING EVEN AND UNLABORED. IV ACCESS IN LFA WITH NS INFUSING, PATENT AND INTACT, NO SIGNS OF REDNESS OR INFILTRATION. GTUBE INTACT WITH FEEDING RUNNING. HAS F/C IN PLACE WITH CLEAR YELLOW FLUID DRAINING. BED IN LOW LOCKED POSITION WITH SIDE RAILS X3. CALL LIGHT WITHIN REACH. WILL CONTINUE TO MONITOR.
[2017-02-18] MEDS: SENNOSIDES 8.6 MG TABLET GT SCH (21:20)
[2017-02-19] MEDS: IV NS 0.9% 1,000 ML IV PRN (05:35)
[2017-02-19] MEDS: FIBERSOURCE HN 1,000 ML BOTTLE GT PRN (05:35)
--- NOTE | 2017-02-19 07:01 | NUR ---
RN CLOSING NOTES PATIENT AWAKE IN BED. A/O X1. NO SIGNS OF DISTRESS OR DISCOMFORT. BREATHING EVEN AND UNLABORED. IV ACCESS IN LFA WITH NS INFUSING, PATENT AND INTACT, NO SIGNS OF REDNESS OR INFILTRATION. GTUBE INTACT WITH FEEDING RUNNING, NO RESIDUAL NOTED THROUGHOUT SHIFT. HAS F/C IN PLACE WITH CLEAR YELLOW FLUID DRAINING. ALL NEEDS MET. NO SIGNIFICANT CHANGES THROUGH THE NIGHT. REPOSITIONED PATIENT Q2H. BED IN LOW LOCKED POSITION WITH SIDE RAILS X3. CALL LIGHT WITHIN REACH. WILL ENDORSE TO AM SHIFT FOR DELTA.
--- NOTE | 2017-02-19 07:30 | NUR ---
RN OPEN NOTES RECEIVED REPORT FROM PODIATRY DOCTOR NURSE. PATIENT IS IN BED, AWAKE. ALERT AND ORIENTED TO SELF ONLY. NO SIGNS AND SYMPTOMS OF DISTRESS OR PAIN. BED IN LOW POSITION, LOCKED AND TWO SIDE RAILS ARE UP. CALL LIGHT WITH IN REACH FOR SAFETY. WILL CONTINUE TO MONITOR AND ASSESS PATIENT THROUGH OUT MY SHIFT
[2017-02-19 07:42] LABS: CALCIUM, SERUM 8.5 mg/dL (8.5-10.1); CARBON DIOXIDE 30 mmol/L (21-32); CHLORIDE 103 mmol/L (98-107); CREATININE 0.6 mg/dL (0.6-1.3); GLUCOSE 127 mg/dL (74-106); POTASSIUM 3.7 mmol/L (3.5-5.1); SODIUM SERUM 139 mmol/L (136-145); UREA NITROGEN, BLOOD 9 mg/dL (7-18)
[2017-02-19 08:00] VITALS: BP 119/82
[2017-02-19] MEDS: DOCUSATE SODIUM LIQ 100 MG/10 ML UDC GT SCH (08:05)
[2017-02-19 09:26] LABS: BASOPHILS % (AUTO) 0.3 % (0.0-2.0); EOSINOPHILS # (AUTO) 0.3 /CMM (0.0-0.7); EOSINOPHILS % (AUTO) 3.2 % (0.0-6.0); HEMATOCRIT 37 % (33-45); HEMOGLOBIN 11.8 g/dL (11.5-14.8); LYMPHOCYTES # (AUTO) 2.3 /CMM (0.8-4.8); LYMPHOCYTES % (AUTO) 25.4 % (20.0-44.0); MEAN CORPUSCULAR HEMOGLOBIN 28 PG (26.0-33.0); MEAN CORPUSCULAR HGB CONC 32 g/dl (31.0-36.0); MEAN CORPUSCULAR VOLUME 87 fL (82-100); MONOCYTES # (AUTO) 0.6 /CMM (0.1-1.30); MONOCYTES % (AUTO) 6.9 % (2.0-12.0); NEUTROPHILS # (AUTO) 5.8 /CMM (1.8-8.9); NEUTROPHILS % (AUTO) 64.2 % (43.0-81.0); PLATELET COUNT (AUTO) 368 /CMM (150-450); RDW COEFFICIENT OF VARIATION 15.8 (11.5-15.0); RED BLOOD CELL COUNT(AUTO) 4.26 MIL/uL (4.0-5.2); WHITE BLOOD COUNT (AUTO) 9.1 K/uL (4.3-11.0)
[2017-02-19] MEDS: GENTAMICIN 100 MG in IV D5W 100 ML IV SCH (09:52)
[2017-02-19] MEDS: ENOXAPARIN SODIUM 40 MG/0.4 ML DISP.SYRIN SQ SCH (11:20)
--- NOTE | 2017-02-19 12:30 | NUR ---
JACOBSON DISCONTINUED AT 11AM. 10 CC DEFLATED THE BALLOON. PATIENT TOLERATED PROCEDURE WELL. VOID TRIAL COMPLETED SUCCESSFULLY.
--- NOTE | 2017-02-19 13:30 | NUR ---
VERA ONEILL AT BEDSIDE
[2017-02-19 18:06] VITALS: BP 114/95
--- NOTE | 2017-02-19 18:50 | NUR ---
RN CLOSING NOTES PATIENT AWAKE IN BED. A/O X1. NO SIGNS OR SYMPTOMS OF DISTRESS OR DISCOMFORT. BREATHING EVEN AND UNLABORED. IV SITE IS INTACT AND PATENT. NO SIGNS OF REDNESS OR INFILTRATION. G-TUBE INTACT WITH FEEDING RUNNING, NO RESIDUAL NOTED THROUGHOUT SHIFT. ALL NEEDS MET. REPOSITIONED PATIENT Q2H. BED IN LOW LOCKED POSITION WITH SIDE RAILS X2. CALL LIGHT WITHIN REACH FOR SAFETY. WILL ENDORSE TO BUSHER HELPER NURSE FOR DELTA.
--- NOTE | 2017-02-19 19:00 | NUR ---
RN OPENING NOTES RECEIVED PT IN BED, ALERT AND ORIENTED TO SELF, ASLEEP BUT EASILY AROUSABLE. NOTED PT WITH NO FACIAL GRIMACING, NO SIGNS AND SYMPTOMS OF ACUTE DISTRESS. NOTED WITH NO IV HYDRATION INFUSING WELL ON IVP LINE ON LFA, RECEIVING GTUBE FEEDING ORDERED, INFUSING WELL, PEG TUBE PLACEMENT CHECKED, PATENT. PATIENT'S BED PLACED IN LOW POSITION AND LOCKED IN PLACE. WILL CONTINUE TO MONITOR.
[2017-02-19] MEDS ORDERED: FEE PK DOSING 1 MIN EA MC ONE (19:03)
[2017-02-19 20:00] VITALS: BP 105/67
[2017-02-19] MEDS: CEFTRIAXONE 1 G in IV D5W 50 ML IV SCH (20:28)
[2017-02-19] MEDS ORDERED: VALPROATE 1,000 MG in IV D5W 100 ML IV ONE (20:45)
[2017-02-19] MEDS ORDERED: DIVALPROEX SODIUM 500 MG TABLET.DR PO SCH (21:00)
--- NOTE | 2017-02-19 21:00 | NUR ---
RN NOTES PAGED DR. ARCHULETA TO CLARIFY HER ORDER OF DEPAKON 1,000MG IV AND DEPAKOTE 500MG PO, WAITING FOR HER CALL BACK
[2017-02-19] MEDS: VANCOMYCIN 1 GM in IV D5W 250 ML IV SCH (21:07)
--- NOTE | 2017-02-19 21:30 | NUR ---
RN NOTES SPOKE TO AND INFORMED HIM REGARDING DR. ARCHULETA'S ORDR OF DEPAKON IV WELL DPAKOTE [address] FOR [address]IGHT[address]. QUEEN TOLD ME TO GIVE DEPAKON IV TONIGHT AND START DEPAKOTE 500MG PO TOMORROW, ORDER NOTED AND CARRIED OUT
--- NOTE | 2017-02-19 23:00 | NUR ---
RN NOTES IV LINE GOT INFILTRATED, ICU NURSE CAME AND INSERTED A NEW IV LINE
[2017-02-19] MEDS: SENNOSIDES 8.6 MG TABLET GT SCH (23:29)
[2017-02-20] MEDS: FIBERSOURCE HN 1,000 ML BOTTLE GT PRN ×2 (05:27→20:32)
--- NOTE | 2017-02-20 06:31 | NUR ---
RN CLOSING NOTES PATIENT IN BED, ASLEEP, CAN BE EASILY AWOKEN. ALERT TO SELF, VERBALLY RESPONSIVE, WITH NO NOTED SOB, BREATHING EVEN AND UNLABORED, CONTINUES TO RECEIVE GT FEEDING @65 CC/HR, TOLERATING WELL. WITH HEPLOCK ON RIGHT HAND. ALL PATIENT'S NEEDS ATTENDED TO. CALL LIGHT PLACED WITHIN EASY REACH.
--- NOTE | 2017-02-20 07:18 | NUR ---
RN OPEN NOTES RECEIVED REPORT FROM ADULT MINISTRIES DIRECTOR NURSE. PATIENT IS IN BED. ALERT AND ORIENTED TO SELF ONLY. NO SIGNS AND SYMPTOMS OF DISTRESS. BED IN LOW POSITION, LOCKED AND TWO SIDE RAILS ARE UP. CALL LIGHT WITHIN REACH FOR SAFETY. WILL CONTINUE TO MONITOR AND ASSESS PATIENT THROUGH OUT MY SHIFT
[2017-02-20 07:44] LABS: HEMATOCRIT 39 % (33-45); HEMOGLOBIN 12.7 g/dL (11.5-14.8); LYMPHOCYTES % (AUTO) 21.6 % (20.0-44.0); MEAN CORPUSCULAR HEMOGLOBIN 28 PG (26.0-33.0); MEAN CORPUSCULAR HGB CONC 33 g/dl (31.0-36.0); MEAN CORPUSCULAR VOLUME 86 fL (82-100); MONOCYTES % (AUTO) 5.5 % (2.0-12.0); NEUTROPHILS % (AUTO) 68.6 % (43.0-81.0); PLATELET COUNT (AUTO) 401 /CMM (150-450); RDW COEFFICIENT OF VARIATION 16.2 (11.5-15.0); RED BLOOD CELL COUNT(AUTO) 4.48 MIL/uL (4.0-5.2); WHITE BLOOD COUNT (AUTO) 8.9 K/uL (4.3-11.0)
[2017-02-20 07:45] LABS: BASOPHILS % (AUTO) 0.3 % (0.0-2.0); EOSINOPHILS # (AUTO) 0.4 /CMM (0.0-0.7); LYMPHOCYTES # (AUTO) 1.9 /CMM (0.8-4.8); MONOCYTES # (AUTO) 0.5 /CMM (0.1-1.30); NEUTROPHILS # (AUTO) 6.1 /CMM (1.8-8.9)
[2017-02-20 08:00] VITALS: BP 104/66
[2017-02-20 08:03] LABS: CALCIUM, SERUM 8.8 mg/dL (8.5-10.1); CARBON DIOXIDE 31 mmol/L (21-32); CHLORIDE 101 mmol/L (98-107); CREATININE 0.7 mg/dL (0.6-1.3); GLUCOSE 119 mg/dL (74-106); SODIUM SERUM 138 mmol/L (136-145); UREA NITROGEN, BLOOD 12 mg/dL (7-18)
[2017-02-20 08:04] LABS: VALPROIC ACID 40 ug/mL (50-100)
[2017-02-20] MEDS: CALCIUM CARB 600MG /VIT D 1 EACH TABLET PO SCH (09:03)
[2017-02-20] MEDS: VANCOMYCIN 1 GM in IV D5W 250 ML IV SCH (09:03)
[2017-02-20] MEDS: VALPROIC ACID 250 MG/5 ML UDC GT SCH ×2 (09:04→21:14)
[2017-02-20] MEDS: DOCUSATE SODIUM LIQ 100 MG/10 ML UDC GT SCH (09:04)
[2017-02-20] MEDS: ENOXAPARIN SODIUM 40 MG/0.4 ML DISP.SYRIN SQ SCH (11:43)
[2017-02-20 16:00] VITALS: BP 92/61
[2017-02-20] MEDS: LACTOBACILLUS RHAMNOSUS GG 1 EACH CAP.SPRINK GT SCH (16:28)
--- NOTE | 2017-02-20 18:37 | NUR ---
RN CLOSING NOTES PATIENT AWAKE IN BED. A/O X1. NO SIGNS OR SYMPTOMS OF DISTRESS OR DISCOMFORT. BREATHING EVEN AND UNLABORED. IV SITE IS INTACT AND PATENT. NO SIGNS OF REDNESS OR INFILTRATION. G-TUBE INTACT WITH FEEDING RUNNING, NO RESIDUAL NOTED THROUGHOUT SHIFT. ALL NEEDS MET. REPOSITIONED PATIENT Q2H. BED IN LOW LOCKED POSITION WITH SIDE RAILS X2. CALL LIGHT WITHIN REACH FOR SAFETY. WILL ENDORSE TO AGRICULTURAL AGENT NURSE FOR DELTA.
--- NOTE | 2017-02-20 19:30 | NUR ---
RN NOTES RECEIVED PATIENT IN BED WITH EYES CLOSED, EASILY AROUSABLE. AO X 1, RESPONSIVE TO NAME AND TOUCH. NO ACUTE DISTRESS NOTED. NO SIGNS OF PAIN NOTED. IV SITE PATENT, INTACT; FLUSHED. GT PATENT, INTACT; IN PLACE VIA AUSCULTATION. GTF ONGOING; NO RESIDUAL WHEN ASPIRATED. HOB RAISED. ASPIRATION PRECAUTION MAINTAINED. 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 ON LOW BED WITH BILATERAL UPPER SIDE RAILS UP. WILL CONTINUE TO MONITOR.
[2017-02-20 20:00] VITALS: BP 104/64
[2017-02-20 20:07] VITALS: BP 104/64
[2017-02-20] MEDS: CEFTRIAXONE 1 G in IV D5W 50 ML IV SCH (20:29)
[2017-02-20] MEDS ORDERED: VANCOMYCIN 1 GM in IV D5W 250 ML IV SCH (21:00)
[2017-02-20] MEDS: SENNOSIDES 8.6 MG TABLET GT SCH (21:15)
[2017-02-20] MEDS: VANCOMYCIN 0.75 GM in IV D5W 250 ML IV SCH (21:16)
--- NOTE | 2017-02-21 06:16 | NUR ---
RN NOTES PATIENT ASLEEP, EASILY AROUSABLE. RESPIRATIONS EVEN. NO SIGNS OF PAIN NOTED. DUE MEDS GIVEN WITH NO ASE NOTED. NEEDS ATTENDED. KEPT CLEAN AND DRY. REPOSITIONED Q 2 HOURS. TOLERATING GT FEEDING. SAFETY PRECAUTIONS AND COMFORT MEASURES IN PLACE. WILL GIVE REPORT TO DAY SHIFT FOR CONTINUITY OF CARE.
--- NOTE | 2017-02-21 07:29 | NUR ---
MS RN OPENING NOTES RECEIVED PT AWAKE IN BED IN NO ACUTE SIGNS OF DISTRESS. A/O X1, NO FACIAL GRIMACING OR SIGNS OF DISCOMFORTS OBSERVED AT THIS TIME. IV ACCESS ON RIGHT HAND G#22 INTACT AND PATENT, SL ONLY. PT WITH G-TUBE FEEDING OF FIBERSOURCE @ 65ML/HR IN PROGRESS AND TOLERATING, ASPIRATION PRECAUTIONS MAINTAINED. BED IN LOW AND LOCKED POSITION WITH SIDE RAILS UP X3. CALL LIGHT WITHIN REACH. WILL CONTINUE TO MONITOR.
[2017-02-21 07:53] LABS: BASOPHILS % (AUTO) 0.3 % (0.0-2.0); EOSINOPHILS # (AUTO) 0.4 /CMM (0.0-0.7); EOSINOPHILS % (AUTO) 4.6 % (0.0-6.0); HEMATOCRIT 38 % (33-45); HEMOGLOBIN 12.3 g/dL (11.5-14.8); LYMPHOCYTES # (AUTO) 2.2 /CMM (0.8-4.8); MEAN CORPUSCULAR HEMOGLOBIN 29 PG (26.0-33.0); MEAN CORPUSCULAR HGB CONC 33 g/dl (31.0-36.0); MEAN CORPUSCULAR VOLUME 87 fL (82-100); MONOCYTES # (AUTO) 0.7 /CMM (0.1-1.30); MONOCYTES % (AUTO) 8.4 % (2.0-12.0); NEUTROPHILS # (AUTO) 5.3 /CMM (1.8-8.9); NEUTROPHILS % (AUTO) 61.7 % (43.0-81.0); PLATELET COUNT (AUTO) 393 /CMM (150-450); RDW COEFFICIENT OF VARIATION 16.6 (11.5-15.0); RED BLOOD CELL COUNT(AUTO) 4.32 MIL/uL (4.0-5.2); WHITE BLOOD COUNT (AUTO) 8.6 K/uL (4.3-11.0)
[2017-02-21 08:06] LABS: CALCIUM, SERUM 8.8 mg/dL (8.5-10.1); CARBON DIOXIDE 34 mmol/L (21-32); CHLORIDE 103 mmol/L (98-107); CREATININE 0.7 mg/dL (0.6-1.3); GLUCOSE 105 mg/dL (74-106); POTASSIUM 4.2 mmol/L (3.5-5.1); SODIUM SERUM 140 mmol/L (136-145); UREA NITROGEN, BLOOD 15 mg/dL (7-18)
[2017-02-21 08:41] VITALS: BP 113/47
[2017-02-21] MEDS: VANCOMYCIN 0.75 GM in IV D5W 250 ML IV SCH (08:58)
[2017-02-21] MEDS: VALPROIC ACID 250 MG/5 ML UDC GT SCH (08:59)
[2017-02-21] MEDS: LACTOBACILLUS RHAMNOSUS GG 1 EACH CAP.SPRINK GT SCH ×2 (08:59→16:38)
[2017-02-21] MEDS: CALCIUM CARB 600MG /VIT D 1 EACH TABLET PO SCH (08:59)
[2017-02-21] MEDS: DOCUSATE SODIUM LIQ 100 MG/10 ML UDC GT SCH (08:59)
[2017-02-21] MEDS: ENOXAPARIN SODIUM 40 MG/0.4 ML DISP.SYRIN SQ SCH (11:31)
[2017-02-21] MEDS ORDERED: NITR100C6 PO (14:40)
[2017-02-21 16:00] VITALS: BP 113/68
[2017-02-21] MEDS: FIBERSOURCE HN 1,000 ML BOTTLE GT PRN (16:38)
--- NOTE | 2017-02-21 18:29 | NUR ---
RN DISCHARGED NOTES PT DISCHARGED TO [facility] IN STABLE CONDITION. LEFT UNIT AT 1826H VIA GURNEY ACCOMPANIED BY 2 EMT'S IN NO ACUTE SIGNS OF DISTRESS. A/O X 1. ON ROOM AIR, BREATHING EVEN WITH NO SOB. ALL NEEDS AND CARE PROVIDED WELL. REPORT GIVEN TO SHLIPA JACKSON OF [facility]. V/S TAKEN AND RECORDED. PHOTO OF SKIN TAKEN AND FILED ON CHART. BELONGINGS CHECKED AND SIGNED FORM. PT UN-ABLE TO UNDERSTAND OR COMPREHEND WHEN HEALTH TEACHINGS WAS GIVEN. MD AND CHARGE NURSE AWARE OF DISCHARGE.
== END 2017-02-21 18:14 | DRG 871 ==
LOC: ER 08:54 → TELE 11:37 → MED 02-18 08:59
PROVIDERS: ADMIT Internal Medicine; ATTEND Internal Medicine
DX: A41.9 Sepsis, unspecified organism (principal); E43 Unspecified severe protein-calorie malnutrition; G93.41 Metabolic encephalopathy; R53.2 Functional quadriplegia; E87.2 Acidosis; R13.10 Dysphagia, unspecified; Z93.1 Gastrostomy status; D68.69 Other thrombophilia; D63.8 Anemia in other chronic diseases classified elsewhere; N39.0 Urinary tract infection, site not specified; E11.9 Type 2 diabetes mellitus without complications; F03.90 Unspecified dementia, unspecified severity, without behavioral disturbance, psychotic disturbance, mood disturbance, and anxiety; K21.9 Gastro-esophageal reflux disease without esophagitis; Z88.5 Allergy status to narcotic agent; Z88.2 Allergy status to sulfonamides; I70.0 Atherosclerosis of aorta; Z66 Do not resuscitate; Z87.440 Personal history of urinary (tract) infections; Z79.899 Other long term (current) drug therapy; I35.1 Nonrheumatic aortic (valve) insufficiency; E78.5 Hyperlipidemia, unspecified; E66.01 Morbid (severe) obesity due to excess calories; K59.00 Constipation, unspecified; I10 Essential (primary) hypertension; M81.0 Age-related osteoporosis without current pathological fracture; Z87.311 Personal history of (healed) other pathological fracture; B96.20 Unspecified Escherichia coli [E. coli] as the cause of diseases classified elsewhere; B95.8 Unspecified staphylococcus as the cause of diseases classified elsewhere
CPT/HCPCS: 36415; 71010-TC; 80048-TC; 80076-TC; 80164-TC; 80170-TC; 81000-TC; 83605-TC; 84484-TC; 85025-TC; 85730-TC; 87040-TC; 87081-TC; 87086-TC; 87186-TC; A4606; J0696; J1580; J1650; J3370; J3490; J7030; J7060; Z7610

== ENCOUNTER 2017-03-31 23:11 | Inpatient (IN) | payer MEDICARE, BC ==
[~2017-03-31] VITALS: Ht 167.6 cm; Wt 85.3 kg
[~2017-03-31 23:11] MED LIST changes: -AMIN30LI2 GT; -CEPH-570 PO; -LORA-259 IV; +MAGN400O6 GT; +NITR100C6 PO; -VITA42.5 TP
--- NOTE | 2017-03-31 23:36 | NUR ---
TO BED 4 [facility] PARAMEDICS C/O ALTERED MENTAL STATUS. PT SON AT BEDSIDE. PT SON REPORTS THAT PT IS MORE ALTERED THAN NORMAL. PT CONFUSED AA0X1, NO ACUTE DISTRESS NOTED, RESP EVEN AND UNLAOBRED. PLACE PT ON CARDIAC MONITORING, CONTINUOUS POX. PENDING ER MD BINGHAM.
--- NOTE | 2017-03-31 23:49 | NUR ---
JENAE FLANNERY AT BEDSIDE TO ZACHERY CROSS.
[2017-04-01] MEDS ORDERED: PIPERACILLIN /TAZOBACTAM 3.375 G in IV D5W 50 ML IV ONE ×2
[2017-04-01] MEDS ORDERED: PIPERACILLIN /TAZOBACTAM 3.375 G VIAL IV ONE
--- NOTE | 2017-04-01 00:11 | NUR ---
PT MEDICATED BY RN PER ER MD ORDER.
[2017-04-01 00:48] LABS: APPEARANCE,URINE CLEAR (CLEAR); BILIRUBIN,URINE NEGATIVE (NEGATIVE); BLOOD, URINE TRACE-INTA Ery/uL (NEGATIVE); COLOR,URINE YELLOW (YELLOW); KETONES,URINE NEGATIVE (NEGATIVE); LEUKOCYTE ESTERASE ,URINE NEGATIVE (NEGATIVE); NITRITE, URINE NEGATIVE (NEGATIVE); PROTEIN,URINE NEGATIVE (NEGATIVE); UGLUCOSE NEGATIVE (NEGATIVE); UROBILINOGEN,URINE 0.2 EU/dL (0.2)
[2017-04-01 00:48] LABS: BASOPHILS % (AUTO) 0.1 % (0.0-2.0); EOSINOPHILS # (AUTO) 0.2 /CMM (0.0-0.7); EOSINOPHILS % (AUTO) 1.4 % (0.0-6.0); HEMATOCRIT 38 % (33-45); HEMOGLOBIN 12.5 g/dL (11.5-14.8); LYMPHOCYTES # (AUTO) 1.5 /CMM (0.8-4.8); LYMPHOCYTES % (AUTO) 11.5 % (20.0-44.0); MEAN CORPUSCULAR HEMOGLOBIN 28 PG (26.0-33.0); MEAN CORPUSCULAR HGB CONC 33 g/dl (31.0-36.0); MEAN CORPUSCULAR VOLUME 85 fL (82-100); MONOCYTES # (AUTO) 0.6 /CMM (0.1-1.30); MONOCYTES % (AUTO) 4.9 % (2.0-12.0); NEUTROPHILS # (AUTO) 10.9 /CMM (1.8-8.9); NEUTROPHILS % (AUTO) 82.1 % (43.0-81.0); PLATELET COUNT (AUTO) 408 /CMM (150-450); RDW COEFFICIENT OF VARIATION 16.3 (11.5-15.0); RED BLOOD CELL COUNT(AUTO) 4.49 MIL/uL (4.0-5.2); WHITE BLOOD COUNT (AUTO) 13.3 K/uL (4.3-11.0)
[2017-04-01 00:57] LABS: BACTERIA,URINE None seen /HPF (None Seen); RBC,URINE 0-2 /HPF (0-2); SQUAMOUS EPITHELIAL CELL,UR Rare /HPF (None Seen); WBC,URINE 0-2 /HPF (0-3)
[2017-04-01 01:03] LABS: INR 0.98 (0.87-1.13)
[2017-04-01 01:09] LABS: CALCIUM, SERUM 8.8 mg/dL (8.5-10.1); CARBON DIOXIDE 28 mmol/L (21-32); CHLORIDE 99 mmol/L (98-107); CREATININE 0.8 mg/dL (0.6-1.3); GLUCOSE 107 mg/dL (74-106); POTASSIUM 3.6 mmol/L (3.5-5.1); SODIUM SERUM 135 mmol/L (136-145); TROPONIN I < 0.017 ng/mL (0.00-0.056); UREA NITROGEN, BLOOD 15 mg/dL (7-18)
[2017-04-01 01:13] LABS: ALANINE AMINOTRANSFERASE 20 U/L (12-78); ALBUMIN 2.9 g/dL (3.4-5.0); ALKALINE PHOSPHATASE 89 U/L (46-116); ASPARTATE AMINOTRANSFERASE 19 U/L (15-37); BILIRUBIN,TOTAL 0.2 mg/dL (0.2-1.0); TOTAL PROTEIN, SERUM 7.3 g/dL (6.4-8.2)
[2017-04-01] MEDS ORDERED: ACETAMINOPHEN 325 MG TABLET PO PRN (01:30)
[2017-04-01] MEDS ORDERED: ENOXAPARIN SODIUM 40 MG/0.4 ML DISP.SYRIN SQ SCH (01:30)
[2017-04-01] MEDS ORDERED: ACETAMINOPHEN 650 MG/20.3 ML UDC GT PRN (01:30)
[2017-04-01] MEDS ORDERED: ONDANSETRON HCL/PF 4 MG/2 ML VIAL IVP PRN (01:30)
[2017-04-01] MEDS ORDERED: MAGNESIUM HYDROXIDE 30 ML UDC PO PRN (01:30)
[2017-04-01] MEDS ORDERED: IV NS 0.9% 1,000 ML BAG IV ONE ×2 (01:30)
[2017-04-01] MEDS ORDERED: Z GUARD REMEDY 2 OZ OINT TP PRN (01:30)
[2017-04-01] MEDS ORDERED: HYDROCODONE/APAP 5/325MG 1 EACH TABLET PO PRN (01:30)
[2017-04-01] MEDS ORDERED: LORAZEPAM INJ 2 MG/ML VIAL IV PRN (01:30)
[2017-04-01] MEDS ORDERED: MAG HYDROX/AL HYDROX/SIMETH 30 ML UDC PO PRN (01:30)
[2017-04-01] MEDS ORDERED: ZOLPIDEM TARTRATE 5 MG TABLET PO PRN (01:30)
--- NOTE | 2017-04-01 02:00 | NUR ---
GAVE REPORT TO SCHOOL BUSINESS ADMINISTRATORSHILPA MATTSON FOR DELTA. VSS AND NO S/S OF ACUTE DISTRESS. RESTING IN BED.
[2017-04-01 02:30] VITALS: BP_SYST 110; BP_DIAS 74; BP_DIAS 79
[2017-04-01] MEDS ORDERED: ENOXAPARIN SODIUM 40 MG/0.4 ML DISP.SYRIN SQ ONE (02:30)
--- NOTE | 2017-04-01 02:35 | NUR ---
TELE/RN NOTES SPOKE TO DR. CALDERON, CLARIFIED DIET ORDER. PT RECEIVING JEVITY AT HOME. CHANGED DIET TO NPO X MEDS. ORDERS READBACK PER PROTOCOL. WILL CARRY OUT.
--- NOTE | 2017-04-01 02:45 | NUR ---
TELE/RN OPENING NOTES PT RECEIVED FROM ER VIA DAKOTAH. A/OX1. ON ROOM AIR, BREATHING EVEN AND UNLABORED. NO S/S OF DISTRESS NOTED. NO FACIAL GRIMACING OR OTHER SIGNS OF PAIN. IV TO LFA AND RFA PATENT AND INTACT. COVERED WITH SLEEVES. GT IN PLACE, FLUSHES WELL. ABDOMINAL BINDER IN PLACE. PLACED ON TELE MONITOR SHOWING SINUS RHYTHM WITH HR 95. JACOBSON IN PLACE FROM SNF, DRAINING TO GRAVITY. ORIENTED PT TO ROOM AND CALL LIGHT. SIDE RAILS UPX2 WITH BED ALARM ON FOR SAFETY. BED IN LOW/LOCKED POSITION WITH CALL LIGHT IN REACH. WILL CONTINUE TO MONITOR
[2017-04-01] MEDS: IV NS 0.9% 1,000 ML IV PRN ×2 (02:52→18:16)
[2017-04-01 04:00] VITALS: BP 104/51
[2017-04-01] MEDS ORDERED: PIPERACILLIN /TAZOBACTAM 4.5 G in IV D5W 50 ML IV SCH (05:00)
--- NOTE | 2017-04-01 05:27 | NUR ---
TELE/RN NOTES ZOSYN ORDERED Q8H. DOSE GIVEN IN ER AT 0011. TOO EARLY TO ADMINISTER 0500 DOSE
--- NOTE | 2017-04-01 06:30 | NUR ---
TELE/RN CLOSING NOTES PT RESTING COMFORTABLY IN BED. A/OX1. ON ROOM AIR, BREATHING EVEN AND UNLABORED. IN NO APPARENT DISTRESS. NO S/S OF SOB OR FACIAL GRIMACING. ON TELE MONITOR SHOWING SINUS RHYTHM HR 88. GT IN PLACE WITH ABDOMINAL BINDER. IV TO RFA AND LFA PATENT AND INTACT RUNNING IVF ORDERED. WOUND CONSULT ORDERED. KEPT PT CLEAN AND DRY. TURNED/REPOSITIONED Q2H. HEELS OFFLOADED. KEPT COMFORTABLE DURING SHIFT. BED IN LOW/LOCKED POSITION WITH CALL LIGHT IN REACH. SIDE RAILS XUP2. WILL ENDORSE TO DAY SHIFT RN DELTA.
--- NOTE | 2017-04-01 07:24 | NUR ---
RN NOTES RECEIVED PATIENT IN BED, AWAKE ALERT TO SELF, CONFUSED. RESPIRATIONS EVEN AND UNLABORED, IN NO APPARENT PAIN OR DISCOMFORT, JACOBSON CATHETER DRAINING CLEAR YELLOW URINE. IV ACCESS PATENT AND INTACT NO REDNESS OR INFILTRATION NOTED. NPO EXCEPT MEDS AT THIS TIME, SAFETY MEASURES IN PLACE, KEPT CLEAN DRY AND COMFORTABLE, CALL LIGHT WITHIN EASY REACH WILL CONTINUE TO MONITOR
[2017-04-01 08:00] VITALS: BP 97/55
[2017-04-01] MEDS: DOCUSATE SODIUM LIQ 100 MG/10 ML UDC GT SCH (09:39)
--- NOTE | 2017-04-01 09:59 | NUR ---
WOUND CARE CONSULT: PT PRESENTS WITH REDNESS AROUND G TUBE SITE. DEFER TO MD AND RECOMMEND SURGICAL CONSULT. PT INCONTINENT. ALL SKIN PROTECTION MEASURES IN PLACE AND DISCUSSED WITH NURSING STAFF. CURRENT SHAHZAD SCORE IS 14. WILL SEE PRN. FLANNERY IN AGREEMENT WITH PLAN OF CARE. Addendum: 04/01/17 at 1000 by LESLIE HOLM WNDNU Amended: Links added.
[2017-04-01] MEDS: ZOSYN IVPB 3.375 G in IV D5W 50ml IV SCH ×2 (12:40→17:06)
[2017-04-01 16:00] VITALS: BP 128/82
[2017-04-01] MEDS: FIBERSOURCE HN 1,000 ML BOTTLE GT PRN (19:06)
--- NOTE | 2017-04-01 19:35 | NUR ---
RN NOTES RECEIVED PATIENT IN BED, AWAKE ALERT TO SELF, CONFUSED. RESPIRATIONS EVEN AND UNLABORED, IN NO APPARENT PAIN OR DISCOMFORT, JACOBSON CATHETER DRAINING CLEAR YELLOW URINE.ALL DUE MEDS GIVEN WITH NO ASE NOTED, IV ACCESS PATENT AND INTACT NO REDNESS OR INFILTRATION NOTED. NPO EXCEPT MEDS AT THIS TIME,GTUBE FEEDINGS PER MD ORDERS, SAFETY MEASURES IN PLACE, KEPT CLEAN DRY AND COMFORTABLE, CALL LIGHT WITHIN EASY REACH ENDORSED TO NEXT SHIFT FOR CONTINUITY OF CARE
--- NOTE | 2017-04-01 20:00 | NUR ---
MS RN OPENING NOTES: RECEIVED PATIENT IN BED, AWAKE WITH IV FLUIDS ON LEFT FA G#18NS @75ML/HR. SITE OBSERVED TO BE FREE FROM ANY SIGNS OF INFECTION OR PHLEBITIS. ANOTHER IV ACCESS ON THE RIGHT WRIST AREA- G#24 SALINE LOCK- FLUSHING DONE. PATIENT IS CONFUSED AND DISORIENTED. REALITY ORIENTATION DONE. WITH JACOBSON CATH IN PLACE DRAINING YELLOW CLEAR URINE. PATIENT WITH G TUBE IN PLACE AND FEEDING ON GOING WITH FIBERSOURCE@55ML/HR. NO DRAINAGE NOTED THIS TIME. PLACED BED IN LOCKED POSITION, CALL LIGHT WITHIN PATIENT'S REACH. ADMINISTERED ORDERED MEDICATIONS. SAFETY AND FALL PRECAUTIONS OBSERVED. WILL CONTINUE TO MONITOR PATIENT.
[2017-04-01 20:39] VITALS: BP 120/62
[2017-04-01] MEDS ORDERED: FEE PK DOSING 1 MIN EA MC ONE (21:04)
[2017-04-01] MEDS: VANCOMYCIN 1.5 GM in IV D5W 500ml IV SCH (21:53)
[2017-04-01] MEDS: SENNOSIDES 8.6 MG TABLET GT SCH (21:57)
[2017-04-02] MEDS: MEROPENEM 1 G in IV NS 0.9% 100 ML IV SCH ×3 (00:41→21:45)
[2017-04-02] MEDS: IV NS 0.9% 1,000 ML IV PRN ×2 (05:42→21:09)
--- NOTE | 2017-04-02 07:00 | NUR ---
MS RN CLOSING NOTES: PATIENT IN BED, RESTING COMFORTABLY. IVF ON LEFT FA G#18 WITH NS @75ML/HR, IV HEPLOCK ON RIGHT FA G#24, IN PLACE. NO SIGNS OF INFECTION OR PHLEBITIS ON SITE. WITH JACOBSON CATH IN PLACE DRAINING CLEAR YELLOW URINE. GTUBE FEEDING ON GOING AT 55ML/HR. G TUBE SITE CHECK- NO LEAKAGE NOTED THIS TIME. CLEANSED THE AREA WITH NS AND PAT DRIED. AND APPLIED STERILE DRESSING ON SITE. NOTED NO FACIAL GRIMACE OR COMPLAINS OF PAIN THIS TIME. ENDORSE PATIENT TO DAY SHIFT NURSE.
--- NOTE | 2017-04-02 07:15 | NUR ---
RN NOTES PT IS LAYING DOWN RESTING COMFORTABLY. PT ON RA, RESPIRATIONS ARE EVEN AND UNLABORED. IV ON RFA INTACT AND SL, IV ON LFA INTACT AND RUNNING NS @ 75ML/HR. JACOBSON CATHETER IS INTACT AND DRAINING. SAFETY MEASURES ARE IN PLACE, CALL LIGHT IS IN REACH. WILL CONTINUE TO MONITOR.
[2017-04-02 08:00] VITALS: BP 96/72
[2017-04-02 08:43] LABS: EOSINOPHILS % (AUTO) 0.1 % (0.0-6.0); HEMATOCRIT 35 % (33-45); HEMOGLOBIN 11.7 g/dL (11.5-14.8); LYMPHOCYTES # (AUTO) 1.5 /CMM (0.8-4.8); LYMPHOCYTES % (AUTO) 10.5 % (20.0-44.0); MEAN CORPUSCULAR HEMOGLOBIN 28 PG (26.0-33.0); MEAN CORPUSCULAR HGB CONC 33 g/dl (31.0-36.0); MEAN CORPUSCULAR VOLUME 85 fL (82-100); MONOCYTES # (AUTO) 0.6 /CMM (0.1-1.30); NEUTROPHILS % (AUTO) 85.4 % (43.0-81.0); PLATELET COUNT (AUTO) 355 /CMM (150-450); RDW COEFFICIENT OF VARIATION 15.9 (11.5-15.0); RED BLOOD CELL COUNT(AUTO) 4.11 MIL/uL (4.0-5.2)
[2017-04-02 09:07] LABS: CALCIUM, SERUM 7.9 mg/dL (8.5-10.1); CARBON DIOXIDE 24 mmol/L (21-32); CHLORIDE 105 mmol/L (98-107); CREATININE 0.7 mg/dL (0.6-1.3); GLUCOSE 128 mg/dL (74-106); MAGNESIUM 2.1 mg/dL (1.8-2.4); PHOSPHORUS 2.7 mg/dL (2.5-4.9); POTASSIUM 3.6 mmol/L (3.5-5.1); SODIUM SERUM 140 mmol/L (136-145); UREA NITROGEN, BLOOD 9 mg/dL (7-18)
[2017-04-02] MEDS: DOCUSATE SODIUM LIQ 100 MG/10 ML UDC GT SCH (09:10)
[2017-04-02] MEDS: ENOXAPARIN SODIUM 40 MG/0.4 ML DISP.SYRIN SQ SCH (09:11)
[2017-04-02 11:21] VITALS: BP 96/72
[2017-04-02 16:00] VITALS: BP 122/81
[2017-04-02] MEDS: LACTOBACILLUS RHAMNOSUS GG 1 EACH CAP.SPRINK PO SCH (16:46)
--- NOTE | 2017-04-02 18:31 | NUR ---
RN NOTES PT IS RESTING IN BED COMFORTABLY. PT ON RA, RESPIRATIONS ARE EVEN AND UNLABORED. IV ON RFA INTACT AND SL, AND IV ON LFA INTACT AND RUNNING NS @ 75ML/HR. G-TUBE IS RUNNING FIBERSOURCE @ 55ML/HR. ALL MEDS WERE GIVEN ORDERED. VITAL SIGNS ARE WNL, NO CHANGES IN LOC OR SIGNS OF DISTRESS NOTED. JACOBSON CATHETER IS INTACT AND DRAINING. SAFETY MEASURES ARE IN PLACE, CALL LIGHT IS IN REACH. WILL ENDORSE TO CORD SPLICER RN FOR CONTINUITY OF CARE.
--- NOTE | 2017-04-02 19:35 | NUR ---
MS/PRECINCT POLICE CAPTAIN; RECEIVED PT IN BED SLEEPING AT THIS TIME. BREATHING NON LABORED. IVF ON PROGRESS. GT FEEDING ON PROGRESS. NO RESIDUAL. ON CONTACT ISOLATION OBSERVED. BED ON LOWER POSITION AND LOCKED FOR SAFETY. SIDE RAILS ARE UP FOR SAFETY. CONTINUE TO MONITOR . CALL LIGHT WITHIN REACH. WITH O2 2L NC ON. Addendum: 04/03/17 at 0000 by JAYANT CABRALES LVN PT NOT ON O2 ERROR.
[2017-04-02 20:10] VITALS: BP 97/62
[2017-04-02] MEDS: FIBERSOURCE HN 1,000 ML BOTTLE GT PRN (20:58)
[2017-04-02] MEDS: MUPIROCIN OINT 2% 22 GM TUBE SCH (21:14)
[2017-04-02] MEDS: VANCOMYCIN 1.5 GM in IV D5W 500ml IV SCH (22:30)
[2017-04-02] MEDS: SENNOSIDES 8.6 MG TABLET GT SCH (22:33)
--- NOTE | 2017-04-02 23:50 | NUR ---
MS/GENERAL STORE MANAGER; PT ENDORSED TO DHEERAJ MASSEY FOR CONTINUITY OF CARE.
--- NOTE | 2017-04-03 00:02 | NUR ---
MS/RN NOTES RECEIVED ENDORSEMENT FROM CHECKER/STOCKERSahil GALLO FOR DELTA.
--- NOTE | 2017-04-03 04:37 | NUR ---
ms/rn notes patient had vomiting episode kizzy rios, one time, zofran iv given , monitoring for any changes and will follow up in am for report.
--- NOTE | 2017-04-03 06:32 | NUR ---
ms/rn closing notes patient in bed, resting comfortably in bed, respirations even and unlabored, residual check with no residual, no grimace and guarding, skin warm to touch , noted one time coffee grounds emesis ,as needed zofran given relief,bed in lock position. will endiorse to am rn for bridgette.
[2017-04-03 08:00] VITALS: BP 104/68
--- NOTE | 2017-04-03 08:06 | NUR ---
MS/RN OPENING NOTE PATIENT IN BED IN STABLE CONDITION. A/O X 1. NO SIGNS OF ACUTE DISTRESS. NO COMPLAIN OF PAIN OR DISCOMFORT. ON GTUBE FEEDING TOLERATING WELL. HOB ELEVATED FOR ASPIRATION PRECAUTION. ALL NEEDS ATTENDED TO. CALL LIGHT WITHIN REACH. WILL CONTINUE TO MONITOR TO ENSURE SAFETY.
[2017-04-03] MEDS: LACTOBACILLUS RHAMNOSUS GG 1 EACH CAP.SPRINK PO SCH ×2 (09:30→17:36)
[2017-04-03] MEDS: MEROPENEM 1 G in IV NS 0.9% 100 ML IV SCH ×2 (09:30→22:05)
[2017-04-03] MEDS: DOCUSATE SODIUM LIQ 100 MG/10 ML UDC GT SCH (09:30)
[2017-04-03] MEDS: ENOXAPARIN SODIUM 40 MG/0.4 ML DISP.SYRIN SQ SCH (09:31)
[2017-04-03] MEDS: MUPIROCIN OINT 2% 22 GM TUBE SCH ×2 (09:32→21:02)
[2017-04-03 15:19] LABS: CALCIUM, SERUM 8.4 mg/dL (8.5-10.1); CARBON DIOXIDE 28 mmol/L (21-32); CHLORIDE 106 mmol/L (98-107); CREATININE 0.7 mg/dL (0.6-1.3); GLUCOSE 96 mg/dL (74-106); POTASSIUM 3.3 mmol/L (3.5-5.1); SODIUM SERUM 139 mmol/L (136-145); UREA NITROGEN, BLOOD 9 mg/dL (7-18)
[2017-04-03 15:27] LABS: BASOPHILS % (AUTO) 0.2 % (0.0-2.0); EOSINOPHILS # (AUTO) 0.2 /CMM (0.0-0.7); HEMATOCRIT 35 % (33-45); HEMOGLOBIN 11.7 g/dL (11.5-14.8); LYMPHOCYTES % (AUTO) 19.7 % (20.0-44.0); MEAN CORPUSCULAR HEMOGLOBIN 28 PG (26.0-33.0); MEAN CORPUSCULAR HGB CONC 33 g/dl (31.0-36.0); MEAN CORPUSCULAR VOLUME 85 fL (82-100); MONOCYTES # (AUTO) 0.7 /CMM (0.1-1.30); MONOCYTES % (AUTO) 6.9 % (2.0-12.0); NEUTROPHILS # (AUTO) 7.3 /CMM (1.8-8.9); NEUTROPHILS % (AUTO) 71.2 % (43.0-81.0); PLATELET COUNT (AUTO) 325 /CMM (150-450); RDW COEFFICIENT OF VARIATION 15.3 (11.5-15.0); RED BLOOD CELL COUNT(AUTO) 4.14 MIL/uL (4.0-5.2); WHITE BLOOD COUNT (AUTO) 10.2 K/uL (4.3-11.0)
[2017-04-03 16:00] VITALS: BP 129/68
[2017-04-03] MEDS ORDERED: POTASSIUM CHLORIDE 20 MEQ TAB.PRT.SR PO ONE (17:30)
--- NOTE | 2017-04-03 18:57 | NUR ---
MS/RN CLOSING NOTE PATIENT IN BED IN STABLE CONDITION. A/O X 1. NO SIGNS OF ACUTE DISTRESS. NO COMPLAIN OF PAIN OR DISCOMFORT. ALL NEEDS ATTENDED TO. CALL LIGHT WITHIN REACH. WILL ENDORSE TO NEXT SHIFT FOR CONTINUITY OF CARE.
--- NOTE | 2017-04-03 19:50 | NUR ---
MS/STOCK OR DELIVERY CLERK; RECEIVED PT IN BED WITH EYES OPENED. PT IS NON VERBAL. BREATHING NON LABORED. ON CONTACT ISOLATION OBSERVED. GT FEEDING ON PROGRESS WITH 10 ML RESIDUAL . WITH ABDOMINAL BINDER ON. IVF ON PROGRESS. BED ON LOWER POSITION AND LOCKED FOR SAFETY. SIDE RAILS X 3 ARE UP FOR SAFETY. CONTINUE TO MONITOR. CALL LIGHT WITHIN REACH.
[2017-04-03 20:00] VITALS: BP 100/60
[2017-04-03] MEDS: VANCOMYCIN 1.5 GM in IV D5W 500ml IV SCH (21:26)
[2017-04-03] MEDS: SENNOSIDES 8.6 MG TABLET GT SCH (21:53)
--- NOTE | 2017-04-03 23:00 | NUR ---
MS/TAPE MAKING MACHINE OPERATOR; IV LINE ON LFA IS SWOLLEN. IVF OFF FOR AWHILE. NEW IV LINE STARTED BY THE RN ON PT'S LT HAND. IV F RESUMED. WILL CONTINUE TO MONITOR.
[2017-04-04] MEDS: IV NS 0.9% 1,000 ML IV PRN ×2 (05:35→22:06)
[2017-04-04] MEDS: FIBERSOURCE HN 1,000 ML BOTTLE GT PRN (06:37)
--- NOTE | 2017-04-04 07:00 | NUR ---
MS/BUTTON CUTTING MACHINE OPERATOR; SLEPT FAIRLY. PT SCREAMED AND TALKED WHEN TOUCHED. IVF ON PROGRESS. GT FEEDING TOLERATED. WITH BM X1 LARGE SOFT BROWN. WILL ENDORSE TO THE DAY SHIFT NURSE FOR CONTINUITY OF CARE.
--- NOTE | 2017-04-04 07:28 | NUR ---
MS RN OPENING NOTES RECEIVED PT FROM NIGHTSHIFT NURSE IN STABLE CONDITION. PT IS A/O X1. NO SOB OR SIGNS OF DISTRESS NOTED. BREATHING IS EVEN AND UNLABORED. GTUBE NOTED TO BE PATENT AND INFUSING FIBERSOURCE ORDERED. PLACEMENT VERIFIED VIA AUSCULTATION. PT TOLERATING FEEDING WELL. NO RESIDUALS ASPIRATED AT THIS TIME. IV NOTED TO LEFT HAND 20G INFUSING NS @ 75ML/HR. PT TOLERATING INFUSION WELL. NO REDNESS OR SIGNS OF INFILTRATION NOTED. JACOBSON CATHETER NOTED TO BE DRAINING CLEAR YELLOW URINE. BED IN LOW LOCKED POSITION, SIDE RAILS UP X3, CALL LIGHT WITHIN REACH, BED ALARM ON. WILL CONTINUE TO MONITOR
[2017-04-04 08:38] LABS: BASOPHILS % (AUTO) 0.1 % (0.0-2.0); EOSINOPHILS # (AUTO) 0.4 /CMM (0.0-0.7); EOSINOPHILS % (AUTO) 3.9 % (0.0-6.0); HEMATOCRIT 33 % (33-45); HEMOGLOBIN 11.1 g/dL (11.5-14.8); LYMPHOCYTES # (AUTO) 1.8 /CMM (0.8-4.8); LYMPHOCYTES % (AUTO) 19.1 % (20.0-44.0); MEAN CORPUSCULAR HEMOGLOBIN 29 PG (26.0-33.0); MEAN CORPUSCULAR HGB CONC 34 g/dl (31.0-36.0); MEAN CORPUSCULAR VOLUME 85 fL (82-100); MONOCYTES # (AUTO) 0.6 /CMM (0.1-1.30); MONOCYTES % (AUTO) 6.6 % (2.0-12.0); NEUTROPHILS # (AUTO) 6.8 /CMM (1.8-8.9); NEUTROPHILS % (AUTO) 70.3 % (43.0-81.0); PLATELET COUNT (AUTO) 330 /CMM (150-450); RDW COEFFICIENT OF VARIATION 16.3 (11.5-15.0); RED BLOOD CELL COUNT(AUTO) 3.88 MIL/uL (4.0-5.2); WHITE BLOOD COUNT (AUTO) 9.6 K/uL (4.3-11.0)
[2017-04-04 08:41] LABS: CALCIUM, SERUM 8.3 mg/dL (8.5-10.1); CARBON DIOXIDE 31 mmol/L (21-32); CHLORIDE 105 mmol/L (98-107); CREATININE 0.7 mg/dL (0.6-1.3); GLUCOSE 117 mg/dL (74-106); POTASSIUM 3.5 mmol/L (3.5-5.1); SODIUM SERUM 141 mmol/L (136-145); UREA NITROGEN, BLOOD 11 mg/dL (7-18)
[2017-04-04 08:49] VITALS: BP 102/70
[2017-04-04] MEDS: LACTOBACILLUS RHAMNOSUS GG 1 EACH CAP.SPRINK PO SCH ×2 (09:36→16:16)
[2017-04-04] MEDS: DOCUSATE SODIUM LIQ 100 MG/10 ML UDC GT SCH (09:36)
[2017-04-04] MEDS: MEROPENEM 1 G in IV NS 0.9% 100 ML IV SCH (09:38)
[2017-04-04] MEDS: ENOXAPARIN SODIUM 40 MG/0.4 ML DISP.SYRIN SQ SCH (09:38)
[2017-04-04] MEDS: MUPIROCIN OINT 2% 22 GM TUBE SCH ×2 (09:39→20:36)
[2017-04-04 16:09] VITALS: BP 112/76
--- NOTE | 2017-04-04 18:54 | NUR ---
MS RN CLOSING NOTES PT REMAINS IN STABLE CONDITION. ALL NEEDS MET DURING SHIFT AND ORDERS CARRIED OUT ACCORDINGLY. ALL DUE MEDS GIVEN. FEEDING RESUMED AT 1800 ORDERED. WOUND AND SKIN CARE RENDERED. PT WAS TURNED AND REPOSITION Q2HRS PER PROTOCOL. JACOBSON CATHETER REMOVED ORDERED BY . PT WAS ABLE TO VOID POST JACOBSON REMOVAL. IV REMAINS PATENT AND INTACT. SAFETY MEASURES REMAIN IN PLACE. WILL ENDORSE OT NIGHTSHIFT NURSE FOR DELTA
--- NOTE | 2017-04-04 19:35 | NUR ---
MS RN OPENING NOTES RECEIVED PT IN BED AWAKE, RESPONSIVE, ON ROOM AIR, RESPIRATIONS EVEN, UNLABORED, NO SOB NOTED. GT IN PLACE, 2ML RESIDUAL NOTED, TOLERATES GTF WELL, HOB ELEVATED.NO S/SX OF PAIN OR DISCOMFORT NOTED, NO BLADDER DISTENTION NOTED AT THIS TIME, PT VOIDING. . KEPT CLEAN AND COMFORTABLE. BED LOCKED IN LOWEST POSITION. ATTENDED ALL NEEDS. WILL CONTINUE TO MONITOR ACCORDINGLY.
[2017-04-04 20:00] VITALS: BP 122/62
[2017-04-04] MEDS: CIPROFLOXACIN HCL 250 MG TABLET PO SCH (20:36)
[2017-04-04] MEDS: SENNOSIDES 8.6 MG TABLET GT SCH (22:00)
--- NOTE | 2017-04-04 22:13 | NUR ---
MS RN NOTES PT NOTED WITH LOOSE BM X1 SEN[place]OT 17.2MG HELD.WILL CONTINUE TO MONITOR.ATTENDED ALL NEEDS.
--- NOTE | 2017-04-05 06:48 | NUR ---
MS RN CLOSING NOTES PT IN BED, RESTING COMFORTABLY,ON ROOM AIR, RESPIRATIONS EVEN, UNLABORED,NO SOB NOTED. IV SITE INTACT, PATENT. ON NS AT 75 ML/HR. GT IN PLACE, 3ML RESIDUAL NOTED, TOLERATES GTF WELL, HOB ELEVATED. ABDOMEN SOFT, NON DISTENDED, NO BLADDER DISTENTION NOTED, MONITORED FREQUENTLY. KEPT CLEAN AND COMFORTABLE, ATTENDED ALL NEEDS. BED LOCKED IN LOWEST POSITION. WILL CONTINUE TO MONITOR ACCORDINGLY.
[2017-04-05 08:00] VITALS: BP 124/60
[2017-04-05 08:23] LABS: CALCIUM, SERUM 8.3 mg/dL (8.5-10.1); CARBON DIOXIDE 31 mmol/L (21-32); CHLORIDE 103 mmol/L (98-107); CREATININE 0.5 mg/dL (0.6-1.3); GLUCOSE 120 mg/dL (74-106); POTASSIUM 3.3 mmol/L (3.5-5.1); SODIUM SERUM 140 mmol/L (136-145); UREA NITROGEN, BLOOD 9 mg/dL (7-18)
[2017-04-05] MEDS: CIPROFLOXACIN HCL 250 MG TABLET PO SCH (08:50)
[2017-04-05] MEDS: LACTOBACILLUS RHAMNOSUS GG 1 EACH CAP.SPRINK PO SCH (08:50)
[2017-04-05] MEDS: ENOXAPARIN SODIUM 40 MG/0.4 ML DISP.SYRIN SQ SCH (08:51)
[2017-04-05] MEDS: DOCUSATE SODIUM LIQ 100 MG/10 ML UDC GT SCH (09:00)
[2017-04-05] MEDS: MUPIROCIN OINT 2% 22 GM TUBE SCH (09:08)
[2017-04-05] MEDS ORDERED: POTASSIUM CHLORIDE 20 MEQ POWDER PACKET GT SCH (10:00)
[2017-04-05 16:00] VITALS: BP 125/82
--- NOTE | 2017-04-05 16:03 | NUR ---
SPOKE TO MAI, PATIENT'S SON AND INFORMED OF PATIENT BEING MOVED TO SNF. AMBULANCE IS HERE TO SHIP ERECTOR THE PATIENT.
--- NOTE | 2017-04-05 16:19 | NUR ---
TELEPHONE SBAR REPORT GIVEN TO MEG MASSEY FROM [facility]. AMBULANCE PICKED UP THE PATIENT IN STABLE CONDITION. IV CATHETERS REMOVED WITH THE CATHETER TIP INTACT. OCCLUSIVE DRESSING APPLIED. ALL BELONGINGS ARE ACCOUNTED FOR. PATIENT LEFT THE UNIT IN STABLE CONDITION VIA GURNEY ACCOMPANIED BY THE AMBULANCE STAFF.
[2017-04-06] MEDS ORDERED: NITROFURANTOIN MACROCRYSTAL 50 MG CAPSULE PO SCH (22:00)
== END 2017-04-05 16:41 | DRG 871 ==
LOC: ER 23:13 → TELE 04-01 01:46 → MED 04-01 10:45
PROVIDERS: ADMIT Internal Medicine; ATTEND Internal Medicine
DX: A41.9 Sepsis, unspecified organism (principal); E43 Unspecified severe protein-calorie malnutrition; G93.49 Other encephalopathy; E87.2 Acidosis; D68.59 Other primary thrombophilia; E11.22 Type 2 diabetes mellitus with diabetic chronic kidney disease; E88.09 Other disorders of plasma-protein metabolism, not elsewhere classified; R53.2 Functional quadriplegia; N39.0 Urinary tract infection, site not specified; E78.5 Hyperlipidemia, unspecified; K21.9 Gastro-esophageal reflux disease without esophagitis; F03.90 Unspecified dementia, unspecified severity, without behavioral disturbance, psychotic disturbance, mood disturbance, and anxiety; I12.9 Hypertensive chronic kidney disease with stage 1 through stage 4 chronic kidney disease, or unspecified chronic kidney disease; I25.10 Atherosclerotic heart disease of native coronary artery without angina pectoris; N18.9 Chronic kidney disease, unspecified; Z66 Do not resuscitate; Z87.440 Personal history of urinary (tract) infections; I35.1 Nonrheumatic aortic (valve) insufficiency; M62.50 Muscle wasting and atrophy, not elsewhere classified, unspecified site; L98.8 Other specified disorders of the skin and subcutaneous tissue; Z86.14 Personal history of Methicillin resistant Staphylococcus aureus infection; Z93.1 Gastrostomy status
CPT/HCPCS: 36415; 71045-TC; 80048-TC; 80076-TC; 80202-TC; 81000-TC; 83605-TC; 83735-TC; 84100-TC; 84484-TC; 85025-TC; 85730-TC; 87040-TC; 87045-TC; 87081-TC; 87086-TC; A4216; A4606; J1650; J2185; J2405; J2543; J3370; J7030; J7050; J7060; Z7610

== ENCOUNTER 2017-07-22 11:24 | Inpatient (IN) | payer MEDICARE, BC ==
[~2017-07-22] VITALS: Ht 165.1 cm; Wt 75.7 kg
[2017-07-22 12:11] LABS: BASOPHILS % (AUTO) 0.4 % (0.0-2.0); EOSINOPHILS % (AUTO) 2.1 % (0.0-6.0); HEMATOCRIT 39 % (33-45); HEMOGLOBIN 12.6 g/dL (11.5-14.8); LYMPHOCYTES # (AUTO) 1.4 /CMM (0.8-4.8); LYMPHOCYTES % (AUTO) 15.1 % (20.0-44.0); MEAN CORPUSCULAR HEMOGLOBIN 27 PG (26.0-33.0); MEAN CORPUSCULAR HGB CONC 33 g/dl (31.0-36.0); MEAN CORPUSCULAR VOLUME 81 fL (82-100); MONOCYTES # (AUTO) 0.4 /CMM (0.1-1.30); NEUTROPHILS # (AUTO) 7.4 /CMM (1.8-8.9); NEUTROPHILS % (AUTO) 78.4 % (43.0-81.0); PLATELET COUNT (AUTO) 412 /CMM (150-450); RDW COEFFICIENT OF VARIATION 15.7 (11.5-15.0); RED BLOOD CELL COUNT(AUTO) 4.73 MIL/uL (4.0-5.2); WHITE BLOOD COUNT (AUTO) 9.4 K/uL (4.3-11.0)
[2017-07-22 12:20] LABS: CALCIUM, SERUM 8.4 mg/dL (8.5-10.1); CARBON DIOXIDE 27 mmol/L (21-32); CHLORIDE 101 mmol/L (98-107); CREATININE 0.7 mg/dL (0.6-1.3); GLUCOSE 96 mg/dL (74-106); POTASSIUM 3.9 mmol/L (3.5-5.1); SODIUM SERUM 136 mmol/L (136-145); UREA NITROGEN, BLOOD 16 mg/dL (7-18)
[2017-07-22 12:27] LABS: TROPONIN I < 0.017 ng/mL (0.00-0.056)
[2017-07-22 12:32] LABS: ALANINE AMINOTRANSFERASE 24 U/L (12-78); ALBUMIN 2.9 g/dL (3.4-5.0); ALKALINE PHOSPHATASE 84 U/L (46-116); ASPARTATE AMINOTRANSFERASE 18 U/L (15-37); B-TYPE NATRIURETIC PEPTIDE 88 PG/ML (0-125); BILIRUBIN,DIRECT 0.1 mg/dL (0.0-0.2); BILIRUBIN,TOTAL 0.4 mg/dL (0.2-1.0); TOTAL PROTEIN, SERUM 7.4 g/dL (6.4-8.2)
[2017-07-22] MEDS ORDERED: METH1TAB30 GT (12:40)
[2017-07-22] MEDS ORDERED: AMIN30LI2 GT (12:40)
[2017-07-22] MEDS ORDERED: LEVE500T9 GT (12:40)
[2017-07-22] MEDS ORDERED: MULT-213 GT (12:40)
[2017-07-22] MEDS ORDERED: ASCO500T9 GT (12:40)
[2017-07-22 14:40] VITALS: BP 119/75
[2017-07-22] MEDS ORDERED: ONDANSETRON HCL/PF 4 MG/2 ML VIAL IVP PRN (15:00)
[2017-07-22] MEDS ORDERED: ACETAMINOPHEN 325 MG TABLET PO PRN (15:00)
[2017-07-22] MEDS ORDERED: FEE PK DOSING 1 MIN EA MC ONE (15:13)
[2017-07-22 16:00] VITALS: BP 119/75
[2017-07-22] MEDS: VANCOMYCIN 1 GM in IV D5W 250 ML IV SCH (16:13)
[2017-07-22] MEDS: IV D5/ 0.9% NACL 1,000 ML IV PRN (16:13)
[2017-07-22] MEDS: ENOXAPARIN SODIUM 40 MG/0.4 ML DISP.SYRIN SQ SCH (16:16)
[2017-07-22] MEDS ORDERED: JEVITY 1.2 CAL 1,000 ML BOTTLE GT PRN (17:30)
[2017-07-22] MEDS: JEVITY 1.2 CAL 1,000 ML BOTTLE GT PRN (17:42)
[2017-07-22] MEDS: ZOSYN IVPB 3.375 G in IV D5W 50ml IV SCH (17:54)
[2017-07-22 20:00] VITALS: BP 110/60
[2017-07-22 20:17] VITALS: BP 110/60
[2017-07-22] MEDS: Z GUARD REMEDY 2 OZ OINT TP PRN (23:51)
[2017-07-23] MEDS: ZOSYN IVPB 3.375 G in IV D5W 50ml IV SCH ×5 (00:19→23:37)
[2017-07-23 04:00] VITALS: BP 110/72
[2017-07-23] MEDS: IV D5/ 0.9% NACL 1,000 ML IV PRN ×2 (06:45→23:38)
[2017-07-23 07:10] LABS: BASOPHILS # (AUTO) 0.1 /CMM (0.0-0.2); BASOPHILS % (AUTO) 1.9 % (0.0-2.0); EOSINOPHILS % (AUTO) 4.3 % (0.0-6.0); HEMATOCRIT 35 % (33-45); HEMOGLOBIN 11.7 g/dL (11.5-14.8); LYMPHOCYTES # (AUTO) 1.6 /CMM (0.8-4.8); LYMPHOCYTES % (AUTO) 22.7 % (20.0-44.0); MEAN CORPUSCULAR HEMOGLOBIN 28 PG (26.0-33.0); MEAN CORPUSCULAR HGB CONC 33 g/dl (31.0-36.0); MEAN CORPUSCULAR VOLUME 83 fL (82-100); MONOCYTES # (AUTO) 0.5 /CMM (0.1-1.30); MONOCYTES % (AUTO) 7.1 % (2.0-12.0); NEUTROPHILS # (AUTO) 4.5 /CMM (1.8-8.9); PLATELET COUNT (AUTO) 371 /CMM (150-450); RDW COEFFICIENT OF VARIATION 16.9 (11.5-15.0); RED BLOOD CELL COUNT(AUTO) 4.24 MIL/uL (4.0-5.2)
[2017-07-23 07:49] LABS: CALCIUM, SERUM 8.4 mg/dL (8.5-10.1); CARBON DIOXIDE 27 mmol/L (21-32); CHLORIDE 105 mmol/L (98-107); CREATININE 0.7 mg/dL (0.6-1.3); GLUCOSE 124 mg/dL (74-106); POTASSIUM 4.1 mmol/L (3.5-5.1); SODIUM SERUM 139 mmol/L (136-145); UREA NITROGEN, BLOOD 13 mg/dL (7-18)
[2017-07-23 08:00] VITALS: BP 110/60
[2017-07-23] MEDS ORDERED: MAGNESIUM HYDROXIDE 30 ML UDC GT PRN (09:00)
[2017-07-23] MEDS ORDERED: ACETAMINOPHEN 650 MG/20.3 ML UDC GT PRN (09:00)
[2017-07-23] MEDS ORDERED: Methenamine Hippurate 1 GM GT SCH (09:00)
[2017-07-23] MEDS ORDERED: BISACODYL (5 MG) 5 MG TABLET.DR GT PRN (09:00)
[2017-07-23] MEDS ORDERED: NA PHOS,M-B/NA PHOS,DI-BA 1 EA ENEMA RC PRN (09:00)
[2017-07-23] MEDS: MULTIVITAMINS,THERAGRAN 1 UDTAB TABLET GT SCH (09:45)
[2017-07-23] MEDS: DOCUSATE SODIUM LIQ 100 MG/10 ML UDC GT SCH (09:46)
[2017-07-23] MEDS: LEVETIRACETAM SOL (5 ML) 100 MG/ML UDC GT SCH ×2 (09:46→21:31)
[2017-07-23] MEDS: PANTOPRAZOLE 40 MG TABLET.DR PO SCH (09:46)
[2017-07-23] MEDS: ASCORBIC ACID 500 MG TABLET GT SCH (09:46)
[2017-07-23] MEDS: VANCOMYCIN 1 GM in IV D5W 250 ML IV SCH (09:53)
[2017-07-23] MEDS ORDERED: LACTULOSE 10 G/15 ML UDC (PYXIS) GT PRN (12:00)
[2017-07-23 15:43] VITALS: BP 119/64
[2017-07-23 16:00] VITALS: BP 119/64
[2017-07-23] MEDS: JEVITY 1.2 CAL 1,000 ML BOTTLE GT PRN (18:35)
[2017-07-23 20:00] VITALS: BP 107/63
[2017-07-23] MEDS: MUPIROCIN OINT 2% 22 GM TUBE SCH (21:34)
[2017-07-23] MEDS: ENOXAPARIN SODIUM 40 MG/0.4 ML DISP.SYRIN SQ SCH (21:37)
[2017-07-23] MEDS ORDERED: SENNOSIDES 8.6 MG TABLET GT SCH (22:00)
[2017-07-24] MEDS: VANCOMYCIN 1 GM in IV D5W 250 ML IV SCH (03:14)
[2017-07-24] MEDS: ZOSYN IVPB 3.375 G in IV D5W 50ml IV SCH ×2 (05:37→12:59)
[2017-07-24 07:16] LABS: BASOPHILS % (AUTO) 0.1 % (0.0-2.0); EOSINOPHILS % (AUTO) 0.8 % (0.0-6.0); HEMATOCRIT 36 % (33-45); LYMPHOCYTES # (AUTO) 1.4 /CMM (0.8-4.8); LYMPHOCYTES % (AUTO) 24.4 % (20.0-44.0); MEAN CORPUSCULAR HEMOGLOBIN 28 PG (26.0-33.0); MEAN CORPUSCULAR HGB CONC 34 g/dl (31.0-36.0); MEAN CORPUSCULAR VOLUME 82 fL (82-100); MONOCYTES # (AUTO) 0.3 /CMM (0.1-1.30); MONOCYTES % (AUTO) 4.5 % (2.0-12.0); NEUTROPHILS # (AUTO) 4.1 /CMM (1.8-8.9); NEUTROPHILS % (AUTO) 70.2 % (43.0-81.0); PLATELET COUNT (AUTO) 398 /CMM (150-450); RDW COEFFICIENT OF VARIATION 16.9 (11.5-15.0); RED BLOOD CELL COUNT(AUTO) 4.34 MIL/uL (4.0-5.2); WHITE BLOOD COUNT (AUTO) 5.8 K/uL (4.3-11.0)
[2017-07-24 07:23] LABS: CALCIUM, SERUM 8.6 mg/dL (8.5-10.1); CARBON DIOXIDE 26 mmol/L (21-32); CHLORIDE 103 mmol/L (98-107); CREATININE 0.7 mg/dL (0.6-1.3); GLUCOSE 132 mg/dL (74-106); SODIUM SERUM 138 mmol/L (136-145); UREA NITROGEN, BLOOD 11 mg/dL (7-18)
[2017-07-24] MEDS: PANTOPRAZOLE 40 MG TABLET.DR PO SCH (07:38)
[2017-07-24 08:00] VITALS: BP 131/65
[2017-07-24] MEDS: Z GUARD REMEDY 2 OZ OINT TP PRN (09:55)
[2017-07-24] MEDS: DOCUSATE SODIUM LIQ 100 MG/10 ML UDC GT SCH (09:55)
[2017-07-24] MEDS: ASCORBIC ACID 500 MG TABLET GT SCH (09:55)
[2017-07-24] MEDS: LEVETIRACETAM SOL (5 ML) 100 MG/ML UDC GT SCH (09:55)
[2017-07-24] MEDS: MULTIVITAMINS,THERAGRAN 1 UDTAB TABLET GT SCH (09:59)
[2017-07-24] MEDS: MUPIROCIN OINT 2% 22 GM TUBE SCH (12:59)
== END 2017-07-24 17:20 | DRG 202 ==
LOC: ER 11:26 → TELE 13:52 → MED 15:00
PROVIDERS: ADMIT Legal Medicine; ATTEND Legal Medicine
DX: J20.9 Acute bronchitis, unspecified (principal); R53.2 Functional quadriplegia; Z93.1 Gastrostomy status; D64.9 Anemia, unspecified; R13.10 Dysphagia, unspecified; E11.9 Type 2 diabetes mellitus without complications; E78.5 Hyperlipidemia, unspecified; F03.90 Unspecified dementia, unspecified severity, without behavioral disturbance, psychotic disturbance, mood disturbance, and anxiety; I10 Essential (primary) hypertension; R91.8 Other nonspecific abnormal finding of lung field; I25.10 Atherosclerotic heart disease of native coronary artery without angina pectoris; K21.9 Gastro-esophageal reflux disease without esophagitis; Z88.2 Allergy status to sulfonamides; Z74.01 Bed confinement status; Z66 Do not resuscitate
CPT/HCPCS: 36415; 71045-TC; 71250-TC; 80048-TC; 80076-TC; 83605-TC; 83880; 84484-TC; 85025-TC; 87040-TC; 87081-TC; A4606; J1650; J1953; J2543; J3370; J7030; J7042; J7060; Z7610

== ENCOUNTER 2017-08-05 10:06 | Emergency (ER) | payer MEDICARE, BC ==
[~2017-08-05] VITALS: Ht 170.2 cm; Wt 74.8 kg
[~2017-08-05 10:06] MED LIST changes: +AMIN30LI2 GT; +ASCO500T9 GT; -LACT-209 GT; +LEVE500T9 GT; +METH1TAB30 GT; +MULT-213 GT; -NITR100C6 PO
[2017-08-05 10:49] LABS: BASOPHILS # (AUTO) 0.1 /CMM (0.0-0.2); BASOPHILS % (AUTO) 0.7 % (0.0-2.0); HEMATOCRIT 36 % (33-45); HEMOGLOBIN 12.2 g/dL (11.5-14.8); LYMPHOCYTES # (AUTO) 1.9 /CMM (0.8-4.8); LYMPHOCYTES % (AUTO) 17.9 % (20.0-44.0); MEAN CORPUSCULAR HGB CONC 34 g/dl (31.0-36.0); MEAN CORPUSCULAR VOLUME 81 fL (82-100); MONOCYTES # (AUTO) 0.6 /CMM (0.1-1.30); MONOCYTES % (AUTO) 5.7 % (2.0-12.0); NEUTROPHILS # (AUTO) 7.8 /CMM (1.8-8.9); NEUTROPHILS % (AUTO) 72.7 % (43.0-81.0); PLATELET COUNT (AUTO) 382 /CMM (150-450); RED BLOOD CELL COUNT(AUTO) 4.44 MIL/uL (4.0-5.2); WHITE BLOOD COUNT (AUTO) 10.7 K/uL (4.3-11.0)
[2017-08-05] MEDS ORDERED: LORAZEPAM INJ 2 MG/ML VIAL ONE (10:57)
[2017-08-05] MEDS ORDERED: IV NS 0.9% 500 ML BAG IV ONE (11:00)
[2017-08-05] MEDS ORDERED: LORAZEPAM INJ 2 MG/ML VIAL IV ONE (11:00)
[2017-08-05 11:02] LABS: CALCIUM, SERUM 8.5 mg/dL (8.5-10.1); CARBON DIOXIDE 32 mmol/L (21-32); CHLORIDE 99 mmol/L (98-107); CREATININE 0.5 mg/dL (0.6-1.3); GLUCOSE 103 mg/dL (74-106); POTASSIUM 3.4 mmol/L (3.5-5.1); SODIUM SERUM 134 mmol/L (136-145); UREA NITROGEN, BLOOD 13 mg/dL (7-18)
[2017-08-05 11:07] LABS: ALANINE AMINOTRANSFERASE 18 U/L (12-78); ALBUMIN 2.7 g/dL (3.4-5.0); ALKALINE PHOSPHATASE 78 U/L (46-116); ASPARTATE AMINOTRANSFERASE 16 U/L (15-37); BILIRUBIN,DIRECT 0.1 mg/dL (0.0-0.2); BILIRUBIN,TOTAL 0.3 mg/dL (0.2-1.0); LIPASE 120 U/L (73-393)
[2017-08-05 11:09] LABS: TROPONIN I < 0.017 ng/mL (0.00-0.056)
[2017-08-05 11:31] LABS: APPEARANCE,URINE Cloudy (CLEAR); BILIRUBIN,URINE Negative (NEGATIVE); BLOOD, URINE Trace-intact Ery/uL (NEGATIVE); COLOR,URINE Yellow (YELLOW); KETONES,URINE Negative (NEGATIVE); LEUKOCYTE ESTERASE ,URINE Negative (NEGATIVE); NITRITE, URINE Negative (NEGATIVE); PH,URINE 6.5 (5.0-8.0); PROTEIN,URINE Negative (NEGATIVE); UGLUCOSE Negative (NEGATIVE); UROBILINOGEN,URINE 0.2 EU/dL (0.2)
[2017-08-05 11:35] LABS: BACTERIA,URINE Rare /HPF (None Seen); RBC,URINE 0-2 /HPF (0-2); SQUAMOUS EPITHELIAL CELL,UR Many /HPF (None Seen); WBC,URINE 0-3 /HPF (0-3)
[2017-08-05 11:36] LABS: URINE AMORPHOUS URATE Few /HPF (None Seen)
[2017-08-05] MEDS ORDERED: DIATR MEGLU/DIATRIZOATE SODIUM 30 ML BOTTLE (GASTROGRAPHIN) ONE (11:50)
[2017-08-05] MEDS ORDERED: DIATR MEGLU/DIATRIZOATE SODIUM 30 ML BOTTLE (GASTROGRAPHIN) PO ONE (12:00)
--- NOTE | 2017-08-05 12:28 | NUR ---
CALLED [facility] AND SPOKE TO DISPATCHER REGLA TO ARRANGE A BLS TRANSPORT BACK TO [place]. WAS GIVEN AN ETA BONE DRIER TIME OF 1300 TRIP #:[id number]
[2017-08-05 12:54] VITALS: BP 123/75
--- NOTE | 2017-08-06 11:01 | NUR ---
1.5 MG ATIVAN WASTED WITH HARMONY MASSEY
[2017-11-08] MEDS ORDERED: CHLO473M5 MM (12:40)
[2017-11-08] MEDS ORDERED: METO5SOL GT (12:40)
[2017-11-08] MEDS ORDERED: NUT.237L30 GT (12:40)
[2017-11-08] MEDS ORDERED: GUAI100S11 GT (12:40)
[2017-11-08] MEDS ORDERED: D-MA50PO GT (12:40)
== END 2017-08-05 12:55 | disposition home or self-care (01) ==
LOC: ER 10:08
DX: Z43.1 Encounter for attention to gastrostomy (principal); R13.10 Dysphagia, unspecified; F03.90 Unspecified dementia, unspecified severity, without behavioral disturbance, psychotic disturbance, mood disturbance, and anxiety; G93.40 Encephalopathy, unspecified; I10 Essential (primary) hypertension; K21.9 Gastro-esophageal reflux disease without esophagitis; D63.8 Anemia in other chronic diseases classified elsewhere; G82.50 Quadriplegia, unspecified; E11.9 Type 2 diabetes mellitus without complications; E78.5 Hyperlipidemia, unspecified; N39.0 Urinary tract infection, site not specified; Z88.2 Allergy status to sulfonamides; Z88.5 Allergy status to narcotic agent
CPT/HCPCS: 36415; 43760; 51701; 71045; 74018; 80048; 80076; 81001; 83690; 84484; 85025; 87086; 96374; 99285; A4606; J2060; J7040; Q9963 ×2; 81000-TC; 87186-TC; Z7610

== ENCOUNTER 2018-03-27 21:38 | Emergency (ER) | payer MEDICARE, BC ==
[~2018-03-27] VITALS: Ht 170.2 cm; Wt 75.7 kg
[~2018-03-27 21:38] MED LIST changes: +CHLO473M5 MM; +D-MA50PO GT; +LEVE500S9 GT; -LEVE500T9 GT; +METO5SOL GT; -MULT-213 GT; +MULT9LIQ GT; +NUT.237L30 GT; -SENN-167 GT; +SENN-168 GT
--- NOTE | 2018-03-27 22:14 | NUR ---
PT BIBA FOR GT-REPLACEMENT, PLACED ON ER BED 6,VS STABLE AWAITING FOR ER PA MAIN TO ASSESS.
--- NOTE | 2018-03-27 22:33 | NUR ---
CALLING [facility] ETA 45 MINS. TRIP #[id number], PER KELLIE.
--- NOTE | 2018-03-27 22:52 | NUR ---
GT -REPLACED, AWAITING FOR KUB TO BE DONE, WILL F/U.
[2018-03-27] MEDS ORDERED: DIATR MEGLU/DIATRIZOATE SODIUM 30 ML BOTTLE (GASTROGRAPHIN) ONE (23:04)
--- NOTE | 2018-03-28 00:21 | NUR ---
Patient discharged to home in stable condition. Called for report by yi , sent back to [place]. Written and verbal after care instructions given. Patient verbalizes understanding of instruction.
[2018-03-28 00:25] VITALS: BP 103/60
== END 2018-03-28 00:27 ==
LOC: ER 21:40
DX: K94.23 Gastrostomy malfunction (principal); I10 Essential (primary) hypertension; E11.9 Type 2 diabetes mellitus without complications; G82.50 Quadriplegia, unspecified; Z90.49 Acquired absence of other specified parts of digestive tract; Z88.2 Allergy status to sulfonamides; Z88.5 Allergy status to narcotic agent
CPT/HCPCS: 43762; 74018; 99284; A4606; Q9963

== ENCOUNTER 2018-04-24 10:32 | Emergency (ER) | payer MEDICARE, BC ==
[~2018-04-24] VITALS: Ht 175.3 cm; Wt 99.8 kg
--- NOTE | 2018-04-24 10:35 | NUR ---
PT BROUGHT IN BY AMBULANCE FOR G-TUBE REPLACEMENT.
[2018-04-24] MEDS ORDERED: DIATR MEGLU/DIATRIZOATE SODIUM 30 ML BOTTLE (GASTROGRAPHIN) ONE (10:53)
[2018-04-24] MEDS ORDERED: COD LIVER OIL/ZINC OXIDE 120 GM TUBE TP SCH (11:00)
--- NOTE | 2018-04-24 11:12 | NUR ---
G-TUNE PLACED 18 FR X-RAY TAKEN
--- NOTE | 2018-04-24 11:20 | NUR ---
CALLED [facility] FOR TRANSPORT ETA OF 1200 WAS GIVEN. TRIP#[id number]
--- NOTE | 2018-04-24 12:26 | NUR ---
[facility] HERE TO PICK PT UP GOING TO [facility] RIG [address][id number] CALL FACILITY AT . SPOKE WITH SHILPA VARGAS
--- NOTE | 2018-04-24 13:14 | NUR ---
LIVE RADOLOGY REPOR TO [facility]
[2018-04-24 13:26] VITALS: BP 133/71
== END 2018-04-24 13:27 ==
LOC: ER 10:34
DX: K94.23 Gastrostomy malfunction (principal); F03.90 Unspecified dementia, unspecified severity, without behavioral disturbance, psychotic disturbance, mood disturbance, and anxiety; I10 Essential (primary) hypertension; E78.5 Hyperlipidemia, unspecified; I25.10 Atherosclerotic heart disease of native coronary artery without angina pectoris; E11.9 Type 2 diabetes mellitus without complications; G40.909 Epilepsy, unspecified, not intractable, without status epilepticus; K21.9 Gastro-esophageal reflux disease without esophagitis; Z88.2 Allergy status to sulfonamides; Z88.5 Allergy status to narcotic agent
CPT/HCPCS: 43762; 74018; 99285; A4606; Q9963

== ENCOUNTER 2018-08-04 09:26 | Inpatient (IN) | payer MEDICARE, BC ==
[~2018-08-04] VITALS: Ht 167.6 cm; Wt 79.9 kg
--- NOTE | 2018-08-04 09:28 | NUR ---
PT PEARL, FROM [place], HAD SEIZURE EPISODE THIS MORNING, PT IS AAXO0, NOT IN RESPIRATORY DISTRESS, HOOKED TO SENIOR QUALITY METHODS SPECIALIST, KEPT RESTED AND COMFORTABLE, WILL CONTINUE TO MONITOR.
--- NOTE | 2018-08-04 09:35 | NUR ---
SEEN AND EXAMINED BY DR. HER.
--- NOTE | 2018-08-04 09:40 | NUR ---
URINE SPECIMEN COLLECTED AND SENT TO LAB.
--- NOTE | 2018-08-04 09:45 | NUR ---
COMBAT CONTROL AT BEDSIDE FOR XRAY.
[2018-08-04] MEDS ORDERED: LORAZEPAM INJ 2 MG/ML VIAL ONE (09:46)
[2018-08-04] MEDS ORDERED: POLY17PO4 GT (09:50)
[2018-08-04] MEDS ORDERED: ACET-73 PO (09:50)
[2018-08-04] MEDS ORDERED: DEXT15DR6 OP (09:50)
--- NOTE | 2018-08-04 09:51 | NUR ---
ER PHLEB AT BEDSIDE FOR BLOOD DRAW.
[2018-08-04 10:00] LABS: BASOPHILS % (AUTO) 0.3 % (0.0-2.0); EOSINOPHILS % (AUTO) 0.1 % (0.0-6.0); HEMATOCRIT 42 % (33-45); HEMOGLOBIN 14.1 g/dL (11.5-14.8); LYMPHOCYTES # (AUTO) 0.8 /CMM (0.8-4.8); LYMPHOCYTES % (AUTO) 7.4 % (20.0-44.0); MEAN CORPUSCULAR HGB CONC 33 g/dl (31.0-36.0); MEAN CORPUSCULAR VOLUME 91 fL (82-100); MONOCYTES # (AUTO) 0.3 /CMM (0.1-1.30); MONOCYTES % (AUTO) 3.1 % (2.0-12.0); NEUTROPHILS # (AUTO) 9.5 /CMM (1.8-8.9); NEUTROPHILS % (AUTO) 89.1 % (43.0-81.0); PLATELET COUNT (AUTO) 338 /CMM (150-450); RED BLOOD CELL COUNT(AUTO) 4.66 MIL/uL (4.0-5.2); WHITE BLOOD COUNT (AUTO) 10.7 K/uL (4.3-11.0)
[2018-08-04] MEDS ORDERED: LORAZEPAM INJ 2 MG/ML VIAL IVP ONE (10:00)
[2018-08-04 10:06] LABS: CALCIUM, SERUM 9.1 mg/dL (8.5-10.1); CARBON DIOXIDE 24 mmol/L (21-32); CHLORIDE 98 mmol/L (98-107); CREATININE 0.7 mg/dL (0.6-1.3); GLUCOSE 154 mg/dL (74-106); POTASSIUM 4.1 mmol/L (3.5-5.1); SODIUM SERUM 134 mmol/L (136-145); UREA NITROGEN, BLOOD 16 mg/dL (7-18)
[2018-08-04 10:12] LABS: ALANINE AMINOTRANSFERASE 21 U/L (12-78); ALBUMIN 3.1 g/dL (3.4-5.0); ALKALINE PHOSPHATASE 79 U/L (46-116); ASPARTATE AMINOTRANSFERASE 18 U/L (15-37); BILIRUBIN,DIRECT 0.1 mg/dL (0.0-0.2); BILIRUBIN,TOTAL 0.3 mg/dL (0.2-1.0); TOTAL PROTEIN, SERUM 7.4 g/dL (6.4-8.2)
[2018-08-04 10:23] LABS: APPEARANCE,URINE Clear (CLEAR); BILIRUBIN,URINE Negative (NEGATIVE); BLOOD, URINE Moderate Ery/uL (NEGATIVE); COLOR,URINE Yellow (YELLOW); KETONES,URINE Negative (NEGATIVE); LEUKOCYTE ESTERASE ,URINE Large (NEGATIVE); NITRITE, URINE Positive (NEGATIVE); PROTEIN,URINE Trace mg/dl (NEGATIVE); UGLUCOSE Negative (NEGATIVE); UROBILINOGEN,URINE 0.2 EU/dL (0.2)
[2018-08-04 10:24] LABS: SQUAMOUS EPITHELIAL CELL,UR Few /HPF (None Seen)
--- NOTE | 2018-08-04 10:24 | NUR ---
IV NS 1 LITER STARTED VERBAL ORDERED BY DR. HER.
[2018-08-04 10:25] LABS: BACTERIA,URINE Few /HPF (None Seen)
--- NOTE | 2018-08-04 10:26 | NUR ---
PT IS WHEELED TO CT SCAN VIA [facility].
[2018-08-04] MEDS ORDERED: CEFTRIAXONE 1GM BAG (ER ONLY) 50 ML IV ONE (10:55)
--- NOTE | 2018-08-04 11:08 | NUR ---
REPORT GIVEN TO SHILPA BAUMANN FOR DELTA.
--- NOTE | 2018-08-04 11:13 | NUR ---
PAGED EPIC FOR ADMISSION.
--- NOTE | 2018-08-04 11:27 | NUR ---
DR. PETERSON ACCEPTED THE PATIENT, RECEIVED TELEPHONE ORDERS.
[2018-08-04] MEDS ORDERED: BISACODYL (5 MG) 5 MG TABLET.DR GT PRN (11:30)
[2018-08-04] MEDS ORDERED: ACETAMINOPHEN 650 MG/20.3 ML UDC GT PRN (11:30)
[2018-08-04] MEDS ORDERED: MAGNESIUM HYDROXIDE 30 ML UDC GT PRN (11:30)
[2018-08-04] MEDS ORDERED: NA PHOS,M-B/NA PHOS,DI-BA 1 EA ENEMA RC PRN (11:30)
[2018-08-04 11:45] VITALS: BP 116/67
--- NOTE | 2018-08-04 11:48 | NUR ---
TELE/RN OPENING NOTE THE PATIENT IS RECEIVED IN A [place] FROM ER. TRANSFERRED THE PATIENT FROM [place] TO BED. RECEIVING OXYGEN 2 L/MIN VIA NASAL CANNULA. NO MANIFESTATION OF DISTRESS NOTED. GT PRESENT. LEFT HAND G 20 PATENT AND SALINE LOCKED. BED LOW AND LOCKED. SIDE RAILS UP X3. PADDED SIDE RAILS. CALL LIGHT WITHIN REACH. WILL CONTINUE TO MONITOR.
[2018-08-04] MEDS ORDERED: BISACODYL SUPP (10 MG) 10 MG/SUPP.RECT SUPP.RECT RC PRN (12:30)
[2018-08-04] MEDS ORDERED: METOCLOPRAMIDE HCL 5 MG/5 ML UDC GT SCH (13:00)
[2018-08-04] MEDS: LACTULOSE 10 G/15 ML UDC (PYXIS) GT SCH ×2 (13:28→20:46)
[2018-08-04] MEDS: LEVETIRACETAM SOL (5 ML) 100 MG/ML UDC GT SCH ×2 (13:28→20:46)
[2018-08-04] MEDS: GLUCERNA 1.2 1,000 ML BOTTLE GT SCH (14:48)
[2018-08-04] MEDS: CHLORHEXIDINE GLUCONATE 15 ML UDC MM SCH (17:14)
--- NOTE | 2018-08-04 19:00 | NUR ---
TELE/RN CLOSING NOTE THE PATIENT NOT ALERT. SHE IS OBTUNDED, EYES OPEN. RECEIVING OXYGEN AT 2L/MIN VIA NASAL CANNULA AND SATURATION IS AT 98%. RESPIRATION REGULAR AND UNLABORED. IN NO APPARENT DISTRESS. LEFT HAND G 20 PATENT AND SALINE LOCKED. EXTERNAL TELE BOX READING SINUS TACHYCARDIA 102. GLUCERNA 1.2 INFUSING AT 50 ML/HR. NO RESIDUAL NOTED. ABDOMEN SOFT AND NON-DISTENDED. BED LOW AND LOCKED. SIDE RAILS UP X3 AND PADDED. CALL LIGHT WITHIN REACH. WILL ENDORSE TO MANAGER HEAVY DUTY.
--- NOTE | 2018-08-04 19:38 | NUR ---
INDUSTRIAL GAS SERVICE HELPER OPENING NOTES RECEIVED PATIENT IN BED ASLEEP. AROUSABLE TO TACTILE STIMULI. OBTUNDED. EYES OPEN ONLY. NONVERBAL. BREATHING EVEN AND UNLABORED NO SOB NOTED. TOLERATING ROOM AIR. IV ON LEFT HAND INTACT AND PATENT. SKIN DRY AND WARM TO TOUCH. AFEBRILE. NO S/S OF PAIN OR DISCOMFORT. NO FACIAL GRIMACING. PATIENT NOTED WITH GTUBE. INTACT AND INFUSING. NO RESIDUAL NOTED. PATIENT TOLERATING WELL. ALL OTHER NEEDS ATTENDED TO. FAMILY AT BEDSIDE. ON SEIZURE PRECAUTIONS. SAFETY MEASURES IN PLACE. CALL LIGHT WITHIN REACH. WILL CONTINUE TO MONITOR.
[2018-08-04 20:00] VITALS: BP_SYST 108; BP_SYST 115; BP_DIAS 60; BP_DIAS 64
[2018-08-04] MEDS: SENNOSIDES 8.6 MG TABLET GT SCH (20:45)
[2018-08-04] MEDS: METOCLOPRAMIDE HCL 10 MG/10 ML UDC GT SCH (20:48)
[2018-08-04] MEDS ORDERED: MISCELLANEOUS MED 1 EA EA PO SCH (21:00)
[2018-08-04] MEDS ORDERED: Methenamine Hippurate 1 GM GT SCH (21:00)
[2018-08-05] VITALS: BP 108/60
[2018-08-05 04:00] VITALS: BP 112/67
[2018-08-05] MEDS: METOCLOPRAMIDE HCL 10 MG/10 ML UDC GT SCH ×3 (05:19→21:40)
--- NOTE | 2018-08-05 06:51 | NUR ---
FURNITURE SERVICER CLOSING NOTES PATIENT RESTING IN BED. NO ACUTE CHANGES THROUGHOUT SHIFT. BREATHING EVEN AND UNLABORED NO SOB NOTED. TOLERATING ROOM AIR. IV ON LEFT HAND INTACT AND PATENT. NO S/S OF PAIN OR DISCOMFORT. NO FACIAL GRIMACING. PATIENT WITH GTUBE. INTACT AND INFUSING. NO RESIDUAL. PATIENT TOLERATING WELL. ALL OTHER NEEDS ATTENDED TO. KEPT CLEAN DRY AND COMFORTABLE. ON SEIZURE PRECAUTIONS. SAFETY MEASURES IN PLACE. CALL LIGHT WITHIN REACH. WILL ENDORSE TO ONCOMING NURSE FOR DELTA.
[2018-08-05 08:00] VITALS: BP 129/78
--- NOTE | 2018-08-05 08:00 | NUR ---
RN TRANSPORT OPENING NOTES RECEIVED PT LAYING IN BED WITH HOB ELEVATED. PT IS AROUSABLE, AFEBRILE. RESPIRATIONS ARE EVEN AND UNLABORED, NOT IN ANY ACUTE DISTRESS NOTED. NO FACIAL GRIMACING OR MOANING NOTED. L HAND G20 INTACT, NO INFILTRATION NOTED, DRESSING KEPT CLEAN AND DRY. GTUBE INTACT AND PATENT. GLUCERNA 1.2 RUNNING @50ML/HR X20 HOURS. SAFETY MEASURES ARE IN PLACE. BED ALARM IS ON AND IN ITS LOWEST POSITION. CALL LIGHT IS LEFT WITHIN REACH. WILL MONITOR THROUGHOUT SHIFT FOR CONTINUITY OF CARE.
[2018-08-05] MEDS: POLYETHYLENE GLYCOL 3350 17 GM POWD.PACK GT SCH (08:58)
[2018-08-05] MEDS: DOCUSATE SODIUM LIQ 100 MG/10 ML UDC GT SCH (08:58)
[2018-08-05] MEDS: SENNOSIDES 8.6 MG TABLET GT SCH ×2 (08:58→21:40)
[2018-08-05] MEDS: CHLORHEXIDINE GLUCONATE 15 ML UDC MM SCH ×2 (08:59→16:58)
[2018-08-05] MEDS: LEVETIRACETAM SOL (5 ML) 100 MG/ML UDC GT SCH ×2 (08:59→21:40)
[2018-08-05] MEDS: LACTULOSE 10 G/15 ML UDC (PYXIS) GT SCH ×2 (08:59→21:39)
--- NOTE | 2018-08-05 13:28 | NUR ---
MS RN NOTES-- PT SEEN AND EXAMINED BY DR. PETERSON. RELAYED URINE CX RESULTS TO DR. PETERSON W/ ORDERS FOR ROCEPHIN 1GM IV QD. READ BACK AND VERIFIED. ORDERS NOTED AND CARRIED OUT.
--- NOTE | 2018-08-05 13:29 | NUR ---
MS RN NOTES-- SON MAI AT BEDSIDE MADE AWARE OF ABX FOR UTI.
[2018-08-05] MEDS ORDERED: CEFTRIAXONE 1 G VIAL IM SCH (13:30)
--- NOTE | 2018-08-05 14:28 | NUR ---
MS RN NOTES-- PT NOTED WITH MRSA TO [facility] FROM [facility]CRO. NOTIFIED DR. PETERSON W/ ORDERS FOR BACTROBAN AND ISOLATION. WILL CONTINUE TO MONITOR.
[2018-08-05] MEDS: GLUCERNA 1.2 1,000 ML BOTTLE GT SCH (15:15)
[2018-08-05] MEDS: CEFTRIAXONE 1 G in IV D5W 50 ML IV SCH (15:24)
[2018-08-05 16:00] VITALS: BP 133/79
--- NOTE | 2018-08-05 18:32 | NUR ---
MS RN OPENING NOTES NEEDS ANTICIPATED. PT IS AROUSABLE, AFEBRILE. RESPIRATIONS ARE EVEN AND UNLABORED, NOT IN ANY ACUTE DISTRESS NOTED. NO FACIAL GRIMACING OR MOANING NOTED. RIGHT WRIST G22 INTACT, NO INFILTRATION NOTED, DRESSING KEPT CLEAN AND DRY. GTUBE INTACT AND PATENT. GLUCERNA 1.2 RUNNING @50ML/HR X20 HOURS. SAFETY MEASURES ARE IN PLACE. BED ALARM IS ON AND IN ITS LOWEST POSITION. CALL LIGHT IS LEFT WITHIN REACH. WILL ENDORSE TO NEXT SHIFT FOR CONTINUITY OF CARE.
--- NOTE | 2018-08-05 19:12 | NUR ---
MS/RN NOTES RECEIVED PT. LYING IN BED. PT. IS NON-VERBAL, OPENS EYES SPONTANEOUSLY AND RESPONDS TO TACTILE STIMULI. PT. IS BREATHING EVEN AND UNLABORED ON 2LPM O2 VIA NC. NO SOB, RESPIRATORY DISTRESS OR S/S OF PAIN NOTED AT THIS TIME AND THROUGHOUT SHIFT. PT. WITH RIGHT WRIST 22 GAUGE IV SALINE LOCK PRESENT, PATENT AND INTACT. PT. WITH G-TUBE PRESENT, PATENT AND INTACT ADMINISTERING TO PT. GLUCERNA 1.2 @ 50ML/HR. PT. TOLERATING TUBE FEEDING WELL. NO RESIDUAL NOTED AT THIS TIME. BED LOCKED AND IN LOWEST POSITION, SIDE RAILS UP X3, SEIZURE PRECAUTIONS IMPLEMENTED AND IN PLACE. WILL CONTINUE TO MONITOR.
[2018-08-05 20:00] VITALS: BP 114/68
[2018-08-05] MEDS: MUPIROCIN OINT 2% 22 GM TUBE SCH (21:40)
[2018-08-06] MEDS: METOCLOPRAMIDE HCL 10 MG/10 ML UDC GT SCH ×3 (06:04→20:35)
[2018-08-06 06:32] LABS: BASOPHILS % (AUTO) 0.4 % (0.0-2.0); EOSINOPHILS % (AUTO) 3.2 % (0.0-6.0); HEMATOCRIT 39 % (33-45); HEMOGLOBIN 12.7 g/dL (11.5-14.8); LYMPHOCYTES # (AUTO) 1.5 /CMM (0.8-4.8); LYMPHOCYTES % (AUTO) 20.7 % (20.0-44.0); MEAN CORPUSCULAR HGB CONC 33 g/dl (31.0-36.0); MEAN CORPUSCULAR VOLUME 91 fL (82-100); MONOCYTES # (AUTO) 0.6 /CMM (0.1-1.30); MONOCYTES % (AUTO) 7.4 % (2.0-12.0); NEUTROPHILS # (AUTO) 5.1 /CMM (1.8-8.9); NEUTROPHILS % (AUTO) 68.3 % (43.0-81.0); PLATELET COUNT (AUTO) 328 /CMM (150-450); WHITE BLOOD COUNT (AUTO) 7.5 K/uL (4.3-11.0)
--- NOTE | 2018-08-06 06:45 | NUR ---
MS/RN NOTES PT. IS LYING IN BED RESTING. BREATHING EVEN AND UNLABORED ON 2LPM O2 VIA NC. NO SOB, RESPIRATORY DISTRESS OR S/S OF PAIN NOTED AT THIS TIME AND THROUGHOUT SHIFT. PT. WITH RIGHT WRIST 22 GAUGE IV SALINE LOCK PRESENT, PATENT AND INTACT. PT. WITH G-TUBE PRESENT, PATENT AND INTACT ADMINISTERING TO PT. GLUCERNA 1.2 @ 50ML/HR. PT. TOLERATING TUBE FEEDING WELL. NO RESIDUAL NOTED AT THIS TIME. PT. OFFLOADED, TURNED AND REPOSITIONED Q2H AND NEEDED. ALL PT. NEEDS MET. BED LOCKED AND IN LOWEST POSITION, SIDE RAILS UP X3, SEIZURE PRECAUTIONS IMPLEMENTED AND IN PLACE. WILL ENDORSE TO DAYSHIFT NURSE FOR CONTINUITY OF CARE.
[2018-08-06 07:02] LABS: CALCIUM, SERUM 8.4 mg/dL (8.5-10.1); CARBON DIOXIDE 31 mmol/L (21-32); CHLORIDE 103 mmol/L (98-107); CREATININE 0.5 mg/dL (0.6-1.3); GLUCOSE 102 mg/dL (74-106); POTASSIUM 3.9 mmol/L (3.5-5.1); SODIUM SERUM 140 mmol/L (136-145); UREA NITROGEN, BLOOD 16 mg/dL (7-18)
--- NOTE | 2018-08-06 07:15 | NUR ---
M/S RN NOTES PATIENT AWAKE, LYING IN BED IN SEMI FOWLERS, NO RESPIRATORY DISTRESS, NO S/S OF PAIN AT THIS TIME. SKIN WARM TO TOUCH. IV SL ON THE RT WRIST#22G, INTACT AND PATENT. GT FEEDING OF GLUCERNA RUNNING AT 50ML/HR, TOLERATING WELL. BED IN LOWEST LOCKED POSITION, CALL LIGHT WITHIN REACH. WILL CONTINUE TO MONITOR.
[2018-08-06 08:00] VITALS: BP 124/57
[2018-08-06] MEDS: CHLORHEXIDINE GLUCONATE 15 ML UDC MM SCH ×2 (08:50→16:30)
[2018-08-06] MEDS: LEVETIRACETAM SOL (5 ML) 100 MG/ML UDC GT SCH ×2 (08:51→20:36)
[2018-08-06] MEDS: LACTULOSE 10 G/15 ML UDC (PYXIS) GT SCH ×2 (08:51→20:36)
[2018-08-06] MEDS: DOCUSATE SODIUM LIQ 100 MG/10 ML UDC GT SCH (08:51)
[2018-08-06] MEDS: POLYETHYLENE GLYCOL 3350 17 GM POWD.PACK GT SCH (08:51)
[2018-08-06] MEDS: SENNOSIDES 8.6 MG TABLET GT SCH ×2 (08:51→20:35)
[2018-08-06] MEDS: MUPIROCIN OINT 2% 22 GM TUBE SCH ×2 (08:52→20:42)
[2018-08-06] MEDS: CEFTRIAXONE 1 G in IV D5W 50 ML IV SCH (15:03)
[2018-08-06 16:00] VITALS: BP 146/75
--- NOTE | 2018-08-06 18:50 | NUR ---
M/S RN NOTES PATIENT LYING IN BED AWAKE, NO RESPIRATORY DISTRESS NOTED, NO S/S OF PAIN AT THIS TIME. SKIN WARM TO TOUCH. IV ACCESS SITE INTACT AND PATENT. GT FEEDING OF GLUCERNA AT 50ML/HR, TOLERATING WELL. BED ON LOWEST LOCKED POSITION, CALL LIGHT WITHIN REACH. WILL ENDORSE TO ONCOMING NURSE.
[2018-08-06 20:00] VITALS: BP 146/65
--- NOTE | 2018-08-06 20:00 | NUR ---
MS/RN OPENING NOTES RECEIVED PATIENT IN BED, AWAKE, CAN OPEN EYES AND RESPOND WITH SIMPLE WORDS. SKIN WARM TO TOUCH. RESPIRATIONS EVEN AND UNLABORED. ABLE TO COOPERATE WITH CARE, ON GTUBE PATENT, WITH NO RESIDUAL. MONITORED FOR ANY CHANGES, KEPT SKIN INTACT AND DRY. WILL MONITOR. RECEIVED REPORT FROM AM RN FOR DELTA. IV SITE ONRIGHT WRIST GAUGE 22 PATENT WITH NO S/S OF INFILTRATION.
[2018-08-07] MEDS: METOCLOPRAMIDE HCL 10 MG/10 ML UDC GT SCH ×2 (06:08→14:06)
--- NOTE | 2018-08-07 06:54 | NUR ---
MS/RN NOTES PATIENT RESPIRATIONS EVEN AND UNLABORED, REPOSITIONED FOR COMFORT, KEPT COMFORTABLE, MONITORED FOR ANY CHANGES BED LOCKED CALL LIGHTS WITHIN REACH, WILL MONITOR.
--- NOTE | 2018-08-07 07:53 | NUR ---
M/S RN NOTES PATIENT RESTING, LYING IN BED, IN SEMI FOWLERS. NO RESPIRATORY DISTRESS, NO S/S OF PAIN. SKIN WARM TO TOUCH. IV SL ON THE RT WRIST #22G, INTACT AND PATENT. GT FEEDING GLUCERNA RUNNING AT 50ML/HR, TOLERATING WELL. BED ON LOWEST LOCKED POSITION, CALL LIGHT WITHIN REACH. WILL CONTINUE TO MONITOR.
[2018-08-07 08:00] VITALS: BP 102/78
[2018-08-07] MEDS: POLYETHYLENE GLYCOL 3350 17 GM POWD.PACK GT SCH (09:24)
[2018-08-07] MEDS: LACTULOSE 10 G/15 ML UDC (PYXIS) GT SCH (09:24)
[2018-08-07] MEDS: SENNOSIDES 8.6 MG TABLET GT SCH (09:24)
[2018-08-07] MEDS: LEVETIRACETAM SOL (5 ML) 100 MG/ML UDC GT SCH (09:24)
[2018-08-07] MEDS: CHLORHEXIDINE GLUCONATE 15 ML UDC MM SCH ×2 (09:24→17:35)
[2018-08-07] MEDS: DOCUSATE SODIUM LIQ 100 MG/10 ML UDC GT SCH (09:24)
[2018-08-07] MEDS: MUPIROCIN OINT 2% 22 GM TUBE SCH (09:30)
[2018-08-07 16:00] VITALS: BP 117/97
[2018-08-07] MEDS: CEFTRIAXONE 1 G in IV D5W 50 ML IV SCH (16:31)
--- NOTE | 2018-08-07 20:12 | NUR ---
M/S NEIGHBORHOOD COORDINATOR NOTES PATIENT DISCHARGED IN STABLE CONDITION, NO RESPIRATORY DISTRESS, NO S/S OF PAIN. SKIN WARM TO TOUCH. DISCHARGE RE[facility] TO [facility] AND [facility]BULANCE STAFF. DISCHARGE PACKET WITH MED RECON LIST GIVEN TO AMBULANCE STAFF. SKIN ASSESSED, NO SKIN BREAKDOWN. IV REMOVED AND APPLIED PRESSURE DRESSING. PATIENT LEFT VIA GURNEY WITH 2 AMBULANCE STAFF.
[2018-08-07 20:14] VITALS: BP 117/63
== END 2018-08-07 20:05 | DRG 871 ==
LOC: ER 09:27 → TELE 10:38 → MED 08-05 10:31
PROVIDERS: ADMIT Legal Medicine; ATTEND Legal Medicine
DX: A41.9 Sepsis, unspecified organism (principal); G93.41 Metabolic encephalopathy; N39.0 Urinary tract infection, site not specified; E78.5 Hyperlipidemia, unspecified; F03.90 Unspecified dementia, unspecified severity, without behavioral disturbance, psychotic disturbance, mood disturbance, and anxiety; G40.909 Epilepsy, unspecified, not intractable, without status epilepticus; I10 Essential (primary) hypertension; E11.9 Type 2 diabetes mellitus without complications; I25.10 Atherosclerotic heart disease of native coronary artery without angina pectoris; K21.9 Gastro-esophageal reflux disease without esophagitis; Z93.1 Gastrostomy status; B96.20 Unspecified Escherichia coli [E. coli] as the cause of diseases classified elsewhere; Z66 Do not resuscitate
CPT/HCPCS: 36415; 70450-TC; 71045-TC; 80048-TC; 80076-TC; 81000-TC; 83605-TC; 85025-TC; 85730-TC; 87040-TC; 87081-TC; 87086-TC; 87186-TC; 94799-TC; G0378; J0696; J1953; J2060; J7030; J7050; J7060; J8597

== ENCOUNTER 2018-11-20 11:17 | Inpatient (IN) | payer MEDICARE, BC ==
[~2018-11-20] VITALS: Ht 167.6 cm; Wt 82.1 kg
[~2018-11-20 11:17] MED LIST changes: +ACET-73 PO; -ASCO500T9 GT; +DEXT15DR6 OP; -MULT9LIQ GT; +POLY17PO4 GT
--- NOTE | 2018-11-20 11:38 | NUR ---
DR LEONARDO AT BEDSIDE FOR EVAL.
--- NOTE | 2018-11-20 11:45 | NUR ---
CALLED [facility] SO COULD SPEAK TO THE RN
--- NOTE | 2018-11-20 11:52 | NUR ---
CALLED DR PETERSON FOR A DR TO DR RICHARD
[2018-11-20 11:57] LABS: BASOPHILS % (AUTO) 0.6 % (0.0-2.0); EOSINOPHILS % (AUTO) 0.1 % (0.0-6.0); HEMATOCRIT 43 % (33-45); HEMOGLOBIN 14.3 g/dL (11.5-14.8); MEAN CORPUSCULAR HGB CONC 33 g/dl (31.0-36.0); MEAN CORPUSCULAR VOLUME 89 fL (82-100); MONOCYTES # (AUTO) 0.3 /CMM (0.1-1.30); MONOCYTES % (AUTO) 3.7 % (2.0-12.0); NEUTROPHILS # (AUTO) 7.4 /CMM (1.8-8.9); NEUTROPHILS % (AUTO) 84.6 % (43.0-81.0); PLATELET COUNT (AUTO) 431 /CMM (150-450); RED BLOOD CELL COUNT(AUTO) 4.83 MIL/uL (4.0-5.2); WHITE BLOOD COUNT (AUTO) 8.7 K/uL (4.3-11.0)
[2018-11-20] MEDS ORDERED: IV NS 0.9% 500 ML IV ONE ×2 (12:00)
[2018-11-20] MEDS ORDERED: POLY15DR40 EACHEYE (12:03)
[2018-11-20] MEDS ORDERED: BISA10SU11 RC (12:03)
[2018-11-20] MEDS ORDERED: ONDA4TAB5 GT (12:03)
[2018-11-20] MEDS ORDERED: LEVE100S GT (12:03)
[2018-11-20 12:06] LABS: CALCIUM, SERUM 9.3 mg/dL (8.5-10.1); CARBON DIOXIDE 25 mmol/L (21-32); CHLORIDE 99 mmol/L (98-107); CREATININE 0.8 mg/dL (0.6-1.3); GLUCOSE 128 mg/dL (74-106); SODIUM SERUM 135 mmol/L (136-145); UREA NITROGEN, BLOOD 13 mg/dL (7-18)
[2018-11-20 12:15] LABS: APPEARANCE,URINE Slightly Cloudy (CLEAR); BILIRUBIN,URINE Negative (NEGATIVE); BLOOD, URINE Trace-lysed Ery/uL (NEGATIVE); COLOR,URINE Light yellow (YELLOW); KETONES,URINE Negative (NEGATIVE); LEUKOCYTE ESTERASE ,URINE Small (NEGATIVE); NITRITE, URINE Positive (NEGATIVE); PH,URINE 7.5 (5.0-8.0); PROTEIN,URINE Negative (NEGATIVE); UGLUCOSE Negative (NEGATIVE); UROBILINOGEN,URINE 0.2 EU/dL (0.2)
[2018-11-20 12:24] LABS: BACTERIA,URINE Moderate /HPF (None Seen); SQUAMOUS EPITHELIAL CELL,UR Few /HPF (None Seen)
[2018-11-20] MEDS ORDERED: LORAZEPAM INJ 2 MG/ML VIAL ONE (12:32)
--- NOTE | 2018-11-20 12:34 | NUR ---
CALLED DR PETERSON TO ADMIT PT
--- NOTE | 2018-11-20 12:35 | NUR ---
PT NOTED TO BE ACTIVELY SEIZING. ERMD AT BEDSIDE. MEDICATED ORDERED. SEE EMAR.
[2018-11-20 12:37] LABS: ALANINE AMINOTRANSFERASE 16 U/L (12-78); ALBUMIN 3.4 g/dL (3.4-5.0); ALKALINE PHOSPHATASE 94 U/L (46-116); ASPARTATE AMINOTRANSFERASE 14 U/L (15-37); BILIRUBIN,DIRECT 0.1 mg/dL (0.0-0.2); BILIRUBIN,TOTAL 0.3 mg/dL (0.2-1.0); TOTAL PROTEIN, SERUM 7.2 g/dL (6.4-8.2)
--- NOTE | 2018-11-20 12:37 | NUR ---
CALLED [facility] FOR TELE BED
--- NOTE | 2018-11-20 12:38 | NUR ---
PT ON SEIZURE PRECAUTION. PLACED ON O2@2L/MIN. SATTING 99%. WILL CONTINUE TO MONITOR.
[2018-11-20] MEDS ORDERED: LORAZEPAM INJ 2 MG/ML VIAL IV ONE (13:00)
--- NOTE | 2018-11-20 13:00 | NUR ---
DR FISHER WITH NEW ORDERS IN CHART
[2018-11-20 13:40] VITALS: BP 116/55
--- NOTE | 2018-11-20 13:40 | NUR ---
INDUSTRIAL AUTOMATION ENGINEER ADMITTING REPORT GIVEN BY SHILPA GERMAIN. PATIENT BROUGHT DOWN BY SHILPA LEMA. PATIENT NONVERBAL, NOT OPENING EYES, SQUEEZING FINGERS UPON REQUEST SLIGHTLY. ON 2L O2 VIA NC, NO SOB OR ACUTE DISTRESS. SEE VITALS. TELE MONITOR ATTACHED, SINUS TACHY HR 118, DR. PETERSON AWARE. SEIZURE PRECAUTIONS INITIATED, SIDE RAILS PADDED, SUCTION EQUIPMENT AT BED SIDE. IV SITE X2, C/D/I., PATENT, INFUSING FLUIDS ORDERED. WOUND PICTURES TAKEN, CONSULT PLACED. PATIENT SEEN BY DR. PETERSON WHO VERBALIZED TO CONTINUE GTF. + PLACEMENT, NO S/S BLEEDING FROM SITE. DIAPER ON. SCDS ON. BED LOCKED, LOW, SIDE RAILS UPX2, BED ALARM ON, WILL CONT TO MONITOR
[2018-11-20] MEDS ORDERED: PIPERACILLIN /TAZOBACTAM 3.375 G VIAL IV ONE (13:46)
[2018-11-20] MEDS ORDERED: BISACODYL SUPP (10 MG) 10 MG/SUPP.RECT SUPP.RECT RC PRN (14:30)
[2018-11-20] MEDS ORDERED: ACETAMINOPHEN 650 MG/20.3 ML UDC GT PRN ×2 (14:30→15:00)
[2018-11-20] MEDS ORDERED: NA PHOS,M-B/NA PHOS,DI-BA 1 EA ENEMA RC PRN (14:30)
[2018-11-20] MEDS ORDERED: MAGNESIUM HYDROXIDE 30 ML UDC GT PRN (14:30)
[2018-11-20] MEDS: IV NS 0.9% 1,000 ML IV PRN (14:40)
[2018-11-20] MEDS ORDERED: PANTOPRAZOLE 40 MG/PACK PACK GT SCH (15:00)
[2018-11-20] MEDS ORDERED: PANTOPRAZOLE 40 MG VIAL IV SCH (15:00)
[2018-11-20] MEDS ORDERED: ONDANSETRON HCL/PF 4 MG/2 ML VIAL IV PRN (15:00)
[2018-11-20 16:00] VITALS: BP 123/72
[2018-11-20] MEDS ORDERED: LORAZEPAM INJ 2 MG/ML VIAL IV PRN (17:00)
[2018-11-20] MEDS: ENOXAPARIN SODIUM 30 MG/0.3 ML DISP.SYRIN SQ SCH (17:25)
[2018-11-20] MEDS: CEFTRIAXONE 1 G in IV D5W 50 ML IV SCH (17:27)
[2018-11-20] MEDS: GLUCERNA 1.2 1,000 ML BOTTLE NG PRN (17:27)
[2018-11-20] MEDS: CHLORHEXIDINE GLUCONATE 15 ML UDC MM SCH (17:27)
[2018-11-20] MEDS ORDERED: PIPERACILLIN /TAZOBACTAM 3.375 G in IV D5W 50 ML IV SCH (18:00)
--- NOTE | 2018-11-20 18:00 | NUR ---
MECHANICAL DESIGN ENGINEER PRODUCTS CLOSING NO SIGNIFICANT CHANGES THROUGHOUT SHIFT. NO SEIZURES NOTED. ORDERED MEDS GIVEN. REPORT GIVEN TO NEIDA CRANE RN FOR DELTA
--- NOTE | 2018-11-20 19:00 | NUR ---
DAUGHTER ELI AWARE OF DNR STATUS, POLST SIGNED BY SON.
[2018-11-20 20:00] VITALS: BP 110/62
--- NOTE | 2018-11-20 20:33 | NUR ---
RN OPENING NOTES RECEIVED REPORT FROM STEFANIA MASSEY. PATIENT NON-VERBAL & UNABLE TO MAKE NEEDS KNOWN OR STATE PAIN. EYES CLOSED BUT EASILY AROUSABLE TO TACTILE STIMULI. BREATHING EVEN & UNLABORED, TOLERATING O2 @ 2LPM VIA NC. NO RESPIRATORY DISTRESS NOTED. ON TELE W/ SINUS TACH, HR LOW 100S. RIGHT FOREARM IV #20 & LEFT FOREARM IV #22 INTACT & PATENT W/ DRESSING CDI & IVF NS INFUSING WELL @ 75 ML/HR. G-TUBE PATENT & FLUSHING WELL, GTF GLUCERNA RUNNING @ 45 ML/HR X20 HRS. NO RESIDUAL NOTED @ THIS TIME. NO S/S OF PAIN OR DISCOMFORT @ THIS TIME. SAFETY MEASURES MAINTAINED W/ SIDE RAILS UP & BED ALARM ON. HOB ELEVATED FOR ASPIRATION PRECAUTIONS & TURNED & REPOSITIONED FOR COMFORT. WILL CONTINUE TO MONITOR.
[2018-11-20] MEDS: SENNOSIDES 8.6 MG TABLET GT SCH (21:08)
[2018-11-20] MEDS: KEPPRA 500 MG in IV NS 100 ML IV SCH (21:08)
[2018-11-21] VITALS: BP 120/65
[2018-11-21 04:00] VITALS: BP 111/59
[2018-11-21] MEDS: IV NS 0.9% 1,000 ML IV PRN ×2 (06:44→20:38)
--- NOTE | 2018-11-21 07:05 | NUR ---
WATERPROOF BAG SEWER OPENING RECEIVED PATIENT NONVERBAL, AROUSABLE TO TACTILE STIMULI. ON 2L O2 VIA NC, TOLERATING WELL, NO RESPIRATORY DISTRESS NOTED. TELE MONITOR ATTACHED, SINUS RHYTHM HR 92. SEIZURE PRECAUTIONS IMPLEMENTED - SIDE RAILS PADDED, SUCTION EQUIPMENT AT BEDSIDE. GTF RUNNING @ 45mL/HR X 20 HRS. R FA 20G INFUSING NS @75mL/HR, L FA 22G - SL. C/D/I, PATENT , NO S/S INFILTRATION. PATIENT UNABLE TO MAKE NEEDS KNOWN, WILL CONT TO MONITOR
[2018-11-21 08:00] VITALS: BP 105/64
[2018-11-21] MEDS: CHLORHEXIDINE GLUCONATE 15 ML UDC MM SCH ×2 (08:54→17:23)
[2018-11-21] MEDS: KEPPRA 500 MG in IV NS 100 ML IV SCH ×2 (08:54→20:38)
[2018-11-21] MEDS: DOCUSATE SODIUM LIQ 100 MG/10 ML UDC GT SCH (08:54)
[2018-11-21] MEDS: SENNOSIDES 8.6 MG TABLET GT SCH ×2 (08:54→20:38)
[2018-11-21] MEDS: POLYETHYLENE GLYCOL 3350 17 GM POWD.PACK GT SCH (08:54)
[2018-11-21] MEDS: ESOMEPRAZOLE MAGNESIUM 40 MG SUSPDR.PKT GT SCH (10:39)
[2018-11-21] MEDS: CEFTRIAXONE 1 G in IV D5W 50 ML IV SCH (14:40)
[2018-11-21] MEDS: ENOXAPARIN SODIUM 30 MG/0.3 ML DISP.SYRIN SQ SCH (14:41)
[2018-11-21 16:00] VITALS: BP 127/71
--- NOTE | 2018-11-21 18:40 | NUR ---
MS RN CLOSING PATIENT DOWNGRADED TO MS BY DR. HOPKINS THIS SHIFT. NO SEIZURES NOTED THROUGHOUT SHIFT. ALL ORDERED MEDS GIVEN, WOUND CARE DONE, TURNED PER PROTOCOL. SON VISITED. BED ALARM ON. WILL ENDORSE TO NOC RN FOR DELTA
--- NOTE | 2018-11-21 19:28 | NUR ---
MS RN RECEIVE PT IN BED NON VERBAL ON O2 2LPM VIA NC 02 SAT AT 98% STABLE, RESPIRATION EVEN AND UNLABORED, NO S/S OF DISTRESS. SAFETY MEASURES IN PLACE. WILL CONT TO MTR.
[2018-11-21 20:00] VITALS: BP 132/73
[2018-11-21] MEDS: GLUCERNA 1.2 1,000 ML BOTTLE NG PRN (20:44)
[2018-11-22 04:00] VITALS: BP 106/55
[2018-11-22 06:35] LABS: BASOPHILS % (AUTO) 0.5 % (0.0-2.0); EOSINOPHILS % (AUTO) 1.5 % (0.0-6.0); HEMATOCRIT 41 % (33-45); HEMOGLOBIN 13.2 g/dL (11.5-14.8); LYMPHOCYTES # (AUTO) 1.6 /CMM (0.8-4.8); LYMPHOCYTES % (AUTO) 22.8 % (20.0-44.0); MEAN CORPUSCULAR HGB CONC 32 g/dl (31.0-36.0); MEAN CORPUSCULAR VOLUME 89 fL (82-100); MONOCYTES # (AUTO) 0.4 /CMM (0.1-1.30); MONOCYTES % (AUTO) 6.2 % (2.0-12.0); NEUTROPHILS # (AUTO) 4.7 /CMM (1.8-8.9); PLATELET COUNT (AUTO) 340 /CMM (150-450); RED BLOOD CELL COUNT(AUTO) 4.56 MIL/uL (4.0-5.2); WHITE BLOOD COUNT (AUTO) 6.8 K/uL (4.3-11.0)
--- NOTE | 2018-11-22 06:41 | NUR ---
MS RN ASLEEP AND EASILY AWAKEN, AM CARE RENDERED. NO S/S OF DISTRESS, NURSING CARE RENDERED, KEPT CLEAN AND DRY AND COMFORTABLE. NEEDS ATTENDED AND ANTICIPATED. REPOSITION EVERY 2 HOURS. GOOD SKIN CARE. GT INFUSING ORDERED TOLERATING WELL. SAFETY MEASURES AT ALL TIMES. ENDORSE TO THE NEXT SHIFT.
[2018-11-22 06:44] LABS: CALCIUM, SERUM 8.4 mg/dL (8.5-10.1); CARBON DIOXIDE 25 mmol/L (21-32); CHLORIDE 105 mmol/L (98-107); CREATININE 0.4 mg/dL (0.6-1.3); GLUCOSE 94 mg/dL (74-106); POTASSIUM 4.2 mmol/L (3.5-5.1); SODIUM SERUM 137 mmol/L (136-145); UREA NITROGEN, BLOOD 9 mg/dL (7-18)
[2018-11-22] MEDS: CHLORHEXIDINE GLUCONATE 15 ML UDC MM SCH ×2 (08:51→16:50)
[2018-11-22] MEDS: DOCUSATE SODIUM LIQ 100 MG/10 ML UDC GT SCH (08:51)
[2018-11-22] MEDS: SENNOSIDES 8.6 MG TABLET GT SCH ×2 (08:51→21:17)
[2018-11-22] MEDS: ESOMEPRAZOLE MAGNESIUM 40 MG SUSPDR.PKT GT SCH (08:52)
[2018-11-22] MEDS: ENOXAPARIN SODIUM 30 MG/0.3 ML DISP.SYRIN SQ SCH (08:52)
[2018-11-22] MEDS: KEPPRA 500 MG in IV NS 100 ML IV SCH ×2 (08:53→21:17)
[2018-11-22] MEDS: POLYETHYLENE GLYCOL 3350 17 GM POWD.PACK GT SCH (08:53)
--- NOTE | 2018-11-22 09:45 | NUR ---
alert, non-verbal, son at bedside. GT flushed without any problem, down by this time, and will resume at 1400. no sx noted when first came, on KEPPRA ivpb.
[2018-11-22 12:00] VITALS: BP 111/58
[2018-11-22] MEDS: CEFTRIAXONE 1 G in IV D5W 50 ML IV SCH (13:40)
--- NOTE | 2018-11-22 19:30 | NUR ---
MS RN OPENING NOTE RECEIVED PATIENT A/O X1 NON VERBAL. PATIENT IS ON NASAL CANNULA WITH 2L OF O2. PATIENT IS BEDBOUND AND SKIN INTACT. PATIENT HAS G-TUBE OF GLUCERNA RUNNING AT 45ML/HR. IV ACCESS ON RIGHT FOREARM #20 WITH NS RUNNING AT 75MLHR. ALL SAFETY PRECAUTION APPLIED. WILL CONTINUE TO MONITOR
[2018-11-22 20:00] VITALS: BP 94/50
[2018-11-22] MEDS: IV NS 0.9% 1,000 ML IV PRN (21:17)
[2018-11-23 04:00] VITALS: BP_SYST 105; BP_DIAS 57; BP_DIAS 65
--- NOTE | 2018-11-23 07:10 | NUR ---
RN OPENING NOTES: PATIENT IN BED, AWAKE, OPENS EYES. NONVERBAL. ON GT GLUCERNA AT 45 CC/HR. GOAL 60CC/HR. NO RESIDUAL. (R) FA 20G AND (L) FA 22G WITH NS AT 75 CC/HR. NO S/S OF PAIN OR SOB. HOB ELEVATED. SEIZURE PRECAUTION. BED LOCKED AND IN LOWEST POSITION. WILL CONT. TO MONITOR.
--- NOTE | 2018-11-23 07:30 | NUR ---
RN CLOSING NOTE PATIENT IN BED ASLEEP WITH NO SIGNS OF DISTRESS. PATIENT IS ON NASAL CANNULA WITH 2L OF O2. PATIENT HAS A RIGHT RT FOREARM #20 AND LEFT FOREARM #22 WITH NS RUNNING AT 75ML/HR. ALL SAFETY PRECAUTION APPLIED. REPORT GIVEN TO MORNING NURSE.
[2018-11-23 08:00] VITALS: BP 117/66
[2018-11-23] MEDS: CHLORHEXIDINE GLUCONATE 15 ML UDC MM SCH ×2 (08:42→17:06)
[2018-11-23] MEDS: ESOMEPRAZOLE MAGNESIUM 40 MG SUSPDR.PKT GT SCH (08:42)
[2018-11-23] MEDS: SENNOSIDES 8.6 MG TABLET GT SCH ×2 (08:42→21:10)
[2018-11-23] MEDS: POLYETHYLENE GLYCOL 3350 17 GM POWD.PACK GT SCH (08:42)
[2018-11-23] MEDS: DOCUSATE SODIUM LIQ 100 MG/10 ML UDC GT SCH (08:43)
[2018-11-23] MEDS: LEVETIRACETAM SOL (5 ML) 100 MG/ML UDC GT SCH ×2 (08:46→21:09)
[2018-11-23] MEDS: GLUCERNA 1.2 1,000 ML BOTTLE NG PRN (09:55)
[2018-11-23] MEDS: Z GUARD REMEDY 2 OZ OINT TP SCH ×2 (14:44→21:10)
[2018-11-23] MEDS: ENOXAPARIN SODIUM 30 MG/0.3 ML DISP.SYRIN SQ SCH (15:09)
[2018-11-23] MEDS: CEFTRIAXONE 1 G in IV D5W 50 ML IV SCH (15:13)
--- NOTE | 2018-11-23 15:46 | NUR ---
RN NOTE SON AT BEDSIDE, AWARE THAT PT WILL BE STAYING FOR TONIGHT. NO DC ORDERS PER DR PETERSON
[2018-11-23 16:00] VITALS: BP 129/64
--- NOTE | 2018-11-23 19:00 | NUR ---
RN CLOSING NOTE: BEDSIDE REPORT GIVEN TO PM SHIFT NURSE FOR CONTINUITY OF CARE. PATIENT ON GT FEEDING GLUCERNA 50 CC/HR. TOLERATING WELL. HOB ELEVATED. ASPIRATION AND SEIZURE PRECAUTION. PADDED SIDE RAILS IN PLACE. PATIENT'S CONDITION WNL.
[2018-11-23 20:00] VITALS: BP 131/62
[2018-11-24 04:00] VITALS: BP 108/66
[2018-11-24] MEDS: GLUCERNA 1.2 1,000 ML BOTTLE NG PRN (05:19)
--- NOTE | 2018-11-24 07:00 | NUR ---
MS RN NOTES, PATIENT IN BED SLEEPING AT THIS TIME, BREATHING EVEN AND UNLABORED NO SIGNS OF SOB AND ACUTE DISTRESS NOTED, GT IN PLACED AND GTF INFUSING WELL AND PATIENT TOLERATED WELL, NO SIGNIFICANT CHANGE IN CONDITION DURING THE NIGHT, ALL SAFETY MEASURES OBSERVED, REPOSITIONED Q2HRS AND PRN, KEPT PATIENT DRY AND CLEAN, WILL ENDORSE CONTINUITY OF CARE TO ONCOMING NURSE
[2018-11-24 08:00] VITALS: BP 112/55
[2018-11-24] MEDS: LEVETIRACETAM SOL (5 ML) 100 MG/ML UDC GT SCH (09:18)
[2018-11-24] MEDS: POLYETHYLENE GLYCOL 3350 17 GM POWD.PACK GT SCH (09:18)
[2018-11-24] MEDS: DOCUSATE SODIUM LIQ 100 MG/10 ML UDC GT SCH (09:18)
[2018-11-24] MEDS: ESOMEPRAZOLE MAGNESIUM 40 MG SUSPDR.PKT GT SCH (09:19)
[2018-11-24] MEDS: SENNOSIDES 8.6 MG TABLET GT SCH (09:19)
[2018-11-24] MEDS: CHLORHEXIDINE GLUCONATE 15 ML UDC MM SCH (09:20)
[2018-11-24] MEDS: Z GUARD REMEDY 2 OZ OINT TP SCH (09:20)
[2018-11-24] MEDS: ENOXAPARIN SODIUM 30 MG/0.3 ML DISP.SYRIN SQ SCH (15:36)
[2018-11-24] MEDS: CEFTRIAXONE 1 G in IV D5W 50 ML IV SCH (15:50)
[2018-11-24 16:00] VITALS: BP 134/67
== END 2018-11-24 17:00 | DRG 871 ==
LOC: ER 11:18 → TELE1 13:12 → MEDSG1 11-21 10:18
PROVIDERS: ADMIT Legal Medicine; ATTEND Legal Medicine
DX: A41.9 Sepsis, unspecified organism (principal); G93.41 Metabolic encephalopathy; N39.0 Urinary tract infection, site not specified; G40.909 Epilepsy, unspecified, not intractable, without status epilepticus; F03.90 Unspecified dementia, unspecified severity, without behavioral disturbance, psychotic disturbance, mood disturbance, and anxiety; E11.9 Type 2 diabetes mellitus without complications; D64.9 Anemia, unspecified; I10 Essential (primary) hypertension; Z66 Do not resuscitate; R13.10 Dysphagia, unspecified; Z93.1 Gastrostomy status; Z88.2 Allergy status to sulfonamides; F09 Unspecified mental disorder due to known physiological condition; L98.8 Other specified disorders of the skin and subcutaneous tissue; L89.010 Pressure ulcer of right elbow, unstageable; B96.20 Unspecified Escherichia coli [E. coli] as the cause of diseases classified elsewhere
CPT/HCPCS: 36415; 71045-TC; 80048-TC; 80076-TC; 81000-TC; 82962-TC; 83605-TC; 84484-TC; 85025-TC; 87040-TC; 87081-TC; 87086-TC; 87186-TC; G0378; J0696; J1650; J1953; J2060; J2543; J7030; J7060

== ENCOUNTER 2019-01-16 14:31 | Emergency (ER) | payer MEDICARE, BC ==
[~2019-01-16] VITALS: Ht 167.6 cm; Wt 76.2 kg
[~2019-01-16 14:31] MED LIST changes: -BISA-79 RC; +BISA10SU11 RC; -DEXT15DR6 OP; +LEVE100S GT; -METO5SOL GT; +ONDA4TAB5 GT; +POLY15DR40 EACHEYE
[2019-01-16] MEDS ORDERED: MULT-447 GT (14:55)
[2019-01-16] MEDS ORDERED: ACET325T53 GT (14:55)
[2019-01-16] MEDS ORDERED: DIATR MEGLU/DIATRIZOATE SODIUM 30 ML BOTTLE (GASTROGRAPHIN) ONE (15:38)
--- NOTE | 2019-01-16 15:46 | NUR ---
POLISHING MACHINE TENDER AT BEDSIDE FOR XRAY.
--- NOTE | 2019-01-16 16:15 | NUR ---
[facility] was called per AJ ETA is 1800. Ticket # [id number]. Number for report is [phone]
[2019-01-16 17:55] VITALS: BP 143/81
--- NOTE | 2019-01-16 18:11 | NUR ---
Updated ETA is 1850 crew is held up
--- NOTE | 2019-01-16 18:49 | NUR ---
SPOKED TO [employer] FOR PT INFO.
--- NOTE | 2019-01-16 19:02 | NUR ---
REPORT GIVEN TO EMT FOR PT TRANSFER TO [place].
--- NOTE | 2019-01-16 19:05 | NUR ---
Patient discharged to home in stable condition. Written and verbal after care instructions given to emt for pt transfer back to [place] verbalizes understanding of instruction.
== END 2019-01-16 19:12 ==
LOC: ER 14:33
DX: K94.23 Gastrostomy malfunction (principal); R62.7 Adult failure to thrive; F03.90 Unspecified dementia, unspecified severity, without behavioral disturbance, psychotic disturbance, mood disturbance, and anxiety; I10 Essential (primary) hypertension; E11.9 Type 2 diabetes mellitus without complications; E78.5 Hyperlipidemia, unspecified; I25.10 Atherosclerotic heart disease of native coronary artery without angina pectoris; K21.9 Gastro-esophageal reflux disease without esophagitis; R56.9 Unspecified convulsions; Z68.27 Body mass index [BMI] 27.0-27.9, adult; Z86.718 Personal history of other venous thrombosis and embolism; Z88.2 Allergy status to sulfonamides; Z88.5 Allergy status to narcotic agent; Z79.899 Other long term (current) drug therapy
CPT/HCPCS: 43762; 74018; 99284; Q9963